=== PATIENT | male | born 1945 | race Caucasian/White ===

== ENCOUNTER 2016-09-09 10:41 | Outpatient (CLI) ==
[2016-09-09 11:04] LABS: BASOPHILS # (AUTO) 0.1 K/uL (0-0.2); EOSINOPHILS # (AUTO) 0.1 K/ul (0.0-0.7); EOSINOPHILS % (AUTO) 1.9 % (0.0-7.0); HEMATOCRIT 39.5 % (42.0-52.0); HEMOGLOBIN 12.9 g/dl (14.0-18.0); IMMATURE GRANULOCYTE % (AUTO) 0.4 % (0.0-5.0); LYMPHOCYTES # (AUTO) 1.7 K/uL (0.60-3.4); LYMPHOCYTES % (AUTO) 25.6 (10.0-50.0); MEAN CORPUSCULAR HEMOGLOBIN 28.2 pg (27.0-31.0); MEAN CORPUSCULAR HGB CONC 32.7 (31.8-35.4); MEAN CORPUSCULAR VOLUME 86.4 fl (80.0-94.0); MONOCYTES # (AUTO) 0.6 K/uL (0.4-2.0); MONOCYTES % (AUTO) 9.5 (0-10); NEUTROPHILS # (AUTO) 4.2 K/ul (2.0-6.9); NEUTROPHILS % (AUTO) 61.6; PLATELET COUNT 219 10^3/uL (140-440); RED BLOOD COUNT 4.57 10^6/ul (4.70-6.10); WHITE BLOOD COUNT 6.77 K/ul (4.2-10.2)
[2016-09-09 11:43] LABS: ALBUMIN 3.4 g/dL (3.4-5.0); ALBUMIN/GLOBULIN RATIO 0.97; ANION GAP 11.6; BILIRUBIN,TOTAL 0.4 mg/dL (0.00-1.20); BUN/CREATININE RATIO 16.47; CALCIUM 8.9 mg/dL (8.2-10.2); CHOL/HDL RATIO 2.4 (4.5-6.4); CREATININE 0.85 mg/dL (0.60-1.10); POTASSIUM 4.6 mmol/L (3.5-5.1); TOTAL PROTEIN 6.9 g/dL (5.8-8.1)
== END 2016-09-09 10:42 | disposition home or self-care (01) ==
LOC: LAB 10:41
PROVIDERS: ATTEND Nurse Practitioner Family
DX: E11.9 Type 2 diabetes mellitus without complications (principal); I10 Essential (primary) hypertension; E78.5 Hyperlipidemia, unspecified; E88.81 Metabolic syndrome and other insulin resistance; J44.9 Chronic obstructive pulmonary disease, unspecified; E66.9 Obesity, unspecified
CPT/HCPCS: 36415; 80053; 80061; 83036; 84439; 84443; 85025

== ENCOUNTER 2016-10-28 11:50 | Outpatient (CLI) ==
[2016-10-28 19:10] VITALS: BMI 45.0
== END 2016-10-28 11:51 | disposition home or self-care (01) ==
LOC: AMBL 11:50
PROVIDERS: ATTEND Emergency Medicine
DX: S80.02XA Contusion of left knee, initial encounter (principal); S80.01XA Contusion of right knee, initial encounter; R29.6 Repeated falls; E66.01 Morbid (severe) obesity due to excess calories; W19.XXXA Unspecified fall, initial encounter

== ENCOUNTER 2016-10-28 12:05 | Inpatient (IN) | payer OTHER ==
--- NOTE | 2016-10-28 13:15 | ED.PDOC ---
General ED Provider: Dr. MIKAEL WEBER JR Chief Complaint: Fall Stated Complaint: BILATERAL KNEE PAIN. HAS HAD MULTIPLE FALLS RECENTLY. LANDED ON KNEES THIS AM.[ End ]since 0900 98.4 87 18 92 123/73 04/29. BILTERAL KNEE PAIN. MULTIPLE FALLS RECENTLY[ End ]TRYING TO MOVE TO/OR FROM SCOOTER TO COUCH.PAIN TO KNEES, LOW BACK AND LEFT HIP AND LEFT ANKLE.[ End ]initally states did not take insulin this morning then states did not take ususal amount , but did eat, note ecchymoses both knees left greater than right Time Seen by Physician: 13:14 Mode of Arrival: Ambulance Information Source: Patient Exam Limitations: No limitations [facility] and Triage Documentation Reviewed and Agree: No Review of Systems - Review Of Systems Constitutional: Reports: No symptoms Eyes: Reports: No symptoms Ears, Nose, Mouth, Throat: Reports: No symptoms Respiratory: Reports: No symptoms Cardiac: Reports: No symptoms GI: Reports: No symptoms : Reports: No symptoms Musculoskeletal: Reports: Back pain, Joint pain (left hip knees) Skin: Reports: Bruising Neurological: Reports: Weakness Endocrine: Reports: No symptoms Hematologic/Lymphatic: Reports: No symptoms All Other Systems: Other Past Medical History - Past Medical History Endocrine: Reports: DM 2 Cardiovascular: Reports: Hypertension, CHF Respiratory: Reports: COPD Hematological: Reports: None Gastrointestinal: Reports: None Genitourinary: Reports: None Neuro/Psych: Reports: None Musculoskeletal: Reports: None Cancer: Reports: None Other Pertinent Past Medical History: SLEEP APNEA, OBESITY, - Surgical History General Surgical History: Reports: Cholecystectomy, Orthopedic ( LEFT ELBOW, RIGHT ANKLE FUSION, RIGHT KNEE SCOPE,COMPRESSION FX L 1,2,3 FX COCCYX.), Other (HEMORRHOID SURGERY) - Family History Family History: Reports: Unknown - Social History Smoking Status: Current every day smoker Hx Substance Use: No Alcohol Screening: Occasionally Physical Exam - Physical Exam Appearance: Ill-appearing, Obese Pain Distress: Moderate Eyes: TIM, EOMI, Conjunctiva clear ENT: Ears normal, Nose normal, Oropharynx normal Neck: Supple Respiratory: Airway patent, Breath sounds clear, Breath sounds equal, Respirations nonlabored Cardiovascular: RRR, Pulses normal, No rub, No murmur GI/: Soft, Nontender, No masses, Bowel sounds normal, No Organomegaly Musculoskeletal: Limited ROM, Edema (both legs), Calf tenderness Skin: Warm, Dry Neurological: Sensation intact, Alert, Oriented Psychiatric: Affect appropriate Interpretation - Radiology Interpretation Radiology Interpretation By: Radiologist Radiology Results: Negative Exam Interpreted: Other (xrays-left lateral tibial plateau lucency only on tunnel view) Radiology Interpretation By: Radiologist Exam Interpreted: CT Scan Physician Notification - Case Discussed Physician Notified: DR SWANSON- WILL SEE OUTPATIENT THISWEEK INCLINIC CALL REPLACED BY [facility] [phone] Critical Care Note - Critical Care Note Total Time (mins): 5 Course - Course Hematology/Chemistry: 10/28/16 14:05 10/28/16 14:05 Orders, Labs, Meds: Lab Review 10/28/16 14:05 WBC 8.96 RBC 3.60 L Hgb 10.2 L Hct 32.3 L MCV 89.7 MCH 28.3 MCHC 31.6 L RDW Coeff of Scott 16.7 H Plt Count 301 Immature Gran % (Auto) 0.8 Neut % (Auto) 66.2 Lymph % (Auto) 20.8 [place] % (Auto) 8.8 Eos % (Auto) 2.6 Baso % (Auto) 0.8 Immature Gran # (Auto) 0.1 Neut # 5.9 Lymph # 1.9 [place] # 0.8 Eos # 0.2 Baso # 0.1 D-Dimer (Manual) 4812.37 Sodium 138 Potassium 4.3 Chloride 98 Carbon Dioxide 32 H Anion Gap 12.3 BUN 19 H Creatinine 1.00 Estimated GFR (MDRD) 73.00 BUN/Creatinine Ratio 19.00 Glucose 124 H Calcium 8.3 Total Bilirubin 0.51 AST 21 ALT 14 Alkaline Phosphatase 152 H B-Natriuretic Peptide 89 Total Protein 6.3 Albumin 3.0 L Globulin 3.3 Albumin/Globulin Ratio 0.91 Orders Category Date Time Status EKG-(ED ONLY) Stat CARDIO 10/28/16 13:21 Completed ACCUCHECK (ED) [ED ACCUCHECK ASSESSMENT] .ONCE EMERGENCY 10/28/16 13:22 Active B-TYPE NATRIURETIC PEPTIDE Stat LAB 10/28/16 14:05 Completed CBC W/ AUTO DIFF Stat LAB 10/28/16 14:05 Completed COMPREHENSIVE METABOLIC PANEL Stat LAB 10/28/16 14:05 Completed D-DIMER Stat LAB 10/28/16 14:05 Completed Tramadol HCl [Ultram] MEDS 10/28/16 13:35 Discontinued 100 mg PO ONCE STA CT KNEE LEFT WITHOUT CONTRAST Stat RADS 10/28/16 14:22 Completed HIP, LEFT 2 VIEWS Stat RADS 10/28/16 13:20 Completed KNEE, LEFT 4 VIEWS Stat RADS 10/28/16 13:14 Completed KNEE, RIGHT 4 VIEWS Stat RADS 10/28/16 13:14 Completed PELVIS 1 OR 2 VIEWS Stat RADS 10/28/16 13:20 Completed ULTRASOUND VENOUS SCAN ABDIRIZAK LEGS [U/S VENOUS SCAN ABDIRIZAK RADS 10/28/16 15:17 Completed LEGS] Stat Medications Generic Name Dose Route Start Last Admin Trade Name Freq PRN Reason Stop Dose Admin Acetaminophen 650 mg 10/28/16 17:44 Tylenol PO Q4H PRN Mild Pain Albuterol Sulfate puff 10/28/16 21:00 Proair Hfa IH BID DEREK Albuterol/Ipratropium vial 10/28/16 21:00 Duoneb NEB TID [facility] Atorvastatin Calcium 10 mg 10/29/16 09:00 Lipitor PO DAILY [facility] Chlordiazepoxide HCl 25 mg 10/28/16 17:51 Librium PO Q6HR PRN Agitation Sodium Chloride 1,000 mls @ 75 mls/hr 10/28/16 18:00 Sodium Chloride IV .[id number] [facility] Insulin Glargine 25 unit 10/28/16 21:00 Lantus SUBCUT BID [facility] Insulin Human Regular 0 unit 10/28/16 17:56 Humulin R SUBCUT PRN PRN Hyperglycemica Protocol Lisinopril 10 mg 10/29/16 09:00 Zestril PO DAILY [facility] Morphine Sulfate 4 mg 10/28/16 17:50 Morphine 4 Mg/Ml Syringe IVP Q6H PRN pain Non-Formulary Medication 10 unit 10/28/16 18:00 Insulin Aspart [Novolog Insulin] SQ sliding scale DEREK Fluticasone/Salmeterol puff 10/28/16 21:00 Advair 250-50 Diskus IH BID DEREK Discontinued Medications Generic Name Dose Route Start Last Admin Trade Name Freq PRN Reason Stop Dose Admin Tramadol HCl 100 mg 10/28/16 13:35 10/28/16 14:00 Ultram PO 10/28/16 13:36 100 mg ONCE STA Administration Vital Signs: Temp Pulse Resp BP Pulse Ox 10/28/16 12:08 98.4 F 87 18 123/73 92 L Departure - Departure Time of Disposition: 18:18 Disposition: ADMITTED INPATIENT Discharge Problem: Fracture of left knee region Condition: Fair Pt referred to PMD for follow-up: Yes Allergies/Adverse Reactions: Allergies No Known Allergies Allergy (Unverified 10/28/16 12:16) Disposition Discussed With: Patient (DR SWANSON- WILL SEE OUTPATIENT THISWEEK INCLINIC CALL REPLACED BY [facility] [phone])
[2016-10-28] MEDS ORDERED: ULTRAM PO STA (13:35)
--- NOTE | 2016-10-28 14:03 | DI ---
EXAM: Pelvis AP view HISTORY: Fall, pelvic pain FINDINGS: Image quality is poor possibly related to generalized demineralization and body habitus. No well-defined fracture is seen. There is no joint dislocation. Mild hip osteoarthritis bilateral ly. Sacroiliac joints are intact. Degenerative changes of the lower lumbar spine and lumbosacral j unction including a bony bar that extends from the lowermost vertebral body toward the left adjoinin g with the upper medial aspect of the iliac crest. IMPRESSION: No acute fracture or dislocation. Mild hip osteoarthritis. Degenerative changes lumbosacral junctio n.
--- NOTE | 2016-10-28 14:07 | DI ---
EXAM: RIGHT KNEE. HISTORY: Fall, right knee pain. FINDINGS: Right knee four view. Compared to 06/14/2014. Bone density appears mildly decreased. Th ere is moderate to severe anterior compartment osteoarthritis with associated bony spurring of the t his compartment and medial/lateral. Milder loss of articular cartilage width in the medial lateral c ompartments. Probable small joint effusion. No acute fracture is identified. IMPRESSION: Osteoarthritis most apparent in the anterior compartment. Small joint effusion. No fracture is see n.
--- NOTE | 2016-10-28 14:07 | DI ---
Exam: Two x-rays of the left hip. Reason for exam: Falls Comparison: CT examination performed 07/19/2015. FINDINGS: No acute fracture or dislocation. The femoral head articulates with the acetabulum. Ther e is mild degenerative change seen within the joint space. The cortex appears intact. Impression: No acute fracture or dislocation in the left hip.
[2016-10-28 14:11] LABS: BASOPHILS # (AUTO) 0.1 K/uL (0-0.2); BASOPHILS % (AUTO) 0.8 % (0.0-3.0); EOSINOPHILS # (AUTO) 0.2 K/ul (0.0-0.7); EOSINOPHILS % (AUTO) 2.6 % (0.0-7.0); HEMATOCRIT 32.3 % (42.0-52.0); HEMOGLOBIN 10.2 g/dl (14.0-18.0); IMMATURE GRANULOCYTE % (AUTO) 0.8 % (0.0-5.0); LYMPHOCYTES # (AUTO) 1.9 K/uL (0.60-3.4); LYMPHOCYTES % (AUTO) 20.8 (10.0-50.0); MEAN CORPUSCULAR HEMOGLOBIN 28.3 pg (27.0-31.0); MEAN CORPUSCULAR HGB CONC 31.6 (31.8-35.4); MEAN CORPUSCULAR VOLUME 89.7 fl (80.0-94.0); MONOCYTES # (AUTO) 0.8 K/uL (0.4-2.0); MONOCYTES % (AUTO) 8.8 (0-10); NEUTROPHILS # (AUTO) 5.9 K/ul (2.0-6.9); NEUTROPHILS % (AUTO) 66.2; PLATELET COUNT 301 10^3/uL (140-440); WHITE BLOOD COUNT 8.96 K/ul (4.2-10.2)
--- NOTE | 2016-10-28 14:18 | DI ---
EXAM: Left knee four views HISTORY: Falls COMPARISON: 06/14/2014 TECHNIQUE: Four views left knee were performed FINDINGS: There are moderate to advanced tricompartmental osteophytes. Lucency lateral tibial plat eau region, only seen on the tunnel view and poorly evaluated. This could be artifactual secondary to degenerative change versus a nondisplaced fracture. Mild to moderate narrowing medial and martinez lofemoral compartment. Suggestion of chronic loose body formation near the tibial spines. No disloca tion. No joint effusion. Atherosclerotic vascular calcification IMPRESSION: 1. Lucency lateral tibial plateau region, only seen on the tunnel view and poorly evaluated. This c ould be artifactual secondary to degenerative change versus a nondisplaced fracture. Consider CT fo r further evaluation. 2. Moderate to advanced osteoarthritis. Suggestion of loose body formation. Report faxed at time of dictation.
[2016-10-28 14:28] LABS: ALBUMIN/GLOBULIN RATIO 0.91; ANION GAP 12.3; BILIRUBIN,TOTAL 0.51 mg/dL (0.00-1.20); CALCIUM 8.3 mg/dL (8.2-10.2); POTASSIUM 4.3 mmol/L (3.5-5.1); TOTAL PROTEIN 6.3 g/dL (5.8-8.1)
--- NOTE | 2016-10-28 15:25 | CT ---
Examination: CT imaging of the left knee without intravenous contrast administration. Reason for exam: Lucency in the lateral tibial plateau. Comparison: Knee x-rays performed on the same day. FINDINGS: Moderate to marked degenerative disease with tricompartmental arthrosis and medial joint space narrowing. The osseous structures are diffusely demineralized. There is an age indeterminate cortical fragmentation seen in the region of the tibial spines/intercondylar eminence likely a Meye rs and Luz Maria type IIIa (best seen on sagittal image number 47).. No other fracture or dislocation is seen. Impression: 1. There is likely an age indeterminate type IIIa fracture of the intercondylar eminence. Further im aging with MRI may be performed to look for ligamentous injury. 2. No other fractures or dislocations are seen. The bones are diffusely demineralized.
--- NOTE | 2016-10-28 16:08 | US ---
EXAM: Bilateral lower extremity venous Doppler History: Bilateral lower extremity pain, positive D-dimer. Technique: Multiple sonographic images through the bilateral lower extremities were obtained. [place] r duplex Doppler was used to interrogate vascular flow. Findings: The bilateral common femoral, greater saphenous, profunda, superficial femoral, popliteal , peroneal, posterior tibial and anterior tibial veins demonstrate spontaneous flow with normal comp ression and normal augmentation. Right lower extremity subcutaneous edema Impression: No sonographic evidence for deep venous thrombosis. Right lower extremity subcutaneous edema.
[2016-10-28] MEDS ORDERED: TYLENOL PO PRN (17:44)
[2016-10-28] MEDS ORDERED: LIBRIUM PO PRN (17:51)
[2016-10-28] MEDS ORDERED: INSULIN ASPART 10 UNIT SQ SCH (18:00)
[2016-10-28 19:10] VITALS: BMI 45.0
[2016-10-28] MEDS: SODIUM CHLORIDE 1,000 ML IV SCH (19:35)
[2016-10-28] MEDS: MORPHINE 4 MG/ML SYRINGE IVP PRN (19:35)
[2016-10-28] MEDS: LANTUS SUBCUT SCH (22:13)
[2016-10-29] MEDS: MORPHINE 4 MG/ML SYRINGE IVP PRN ×3 (02:08→17:19)
[2016-10-29 04:42] LABS: BASOPHILS # (AUTO) 0.1 K/uL (0-0.2); BASOPHILS % (AUTO) 1.3 % (0.0-3.0); EOSINOPHILS # (AUTO) 0.2 K/ul (0.0-0.7); EOSINOPHILS % (AUTO) 3.5 % (0.0-7.0); HEMOGLOBIN 9.7 g/dl (14.0-18.0); LYMPHOCYTES # (AUTO) 1.5 K/uL (0.60-3.4); LYMPHOCYTES % (AUTO) 21.7 (10.0-50.0); MEAN CORPUSCULAR HEMOGLOBIN 28.3 pg (27.0-31.0); MEAN CORPUSCULAR HGB CONC 31.3 (31.8-35.4); MEAN CORPUSCULAR VOLUME 90.4 fl (80.0-94.0); MONOCYTES # (AUTO) 0.8 K/uL (0.4-2.0); MONOCYTES % (AUTO) 11.2 (0-10); NEUTROPHILS # (AUTO) 4.2 K/ul (2.0-6.9); NEUTROPHILS % (AUTO) 61.3; PLATELET COUNT 303 10^3/uL (140-440); RED BLOOD COUNT 3.43 10^6/ul (4.70-6.10); WHITE BLOOD COUNT 6.86 K/ul (4.2-10.2)
[2016-10-29 05:15] LABS: ALBUMIN 2.8 g/dL (3.4-5.0); ALBUMIN/GLOBULIN RATIO 0.88; ANION GAP 8.4; BILIRUBIN,TOTAL 0.6 mg/dL (0.00-1.20); BUN/CREATININE RATIO 18.18; CALCIUM 8.4 mg/dL (8.2-10.2); CREATININE 0.88 mg/dL (0.60-1.10); POTASSIUM 4.4 mmol/L (3.5-5.1)
[2016-10-29] MEDS: SODIUM CHLORIDE 1,000 ML IV SCH (07:44)
[2016-10-29] MEDS: ADVAIR 250-50 DISKUS IH SCH ×3 (08:47→21:24)
[2016-10-29] MEDS: ZESTRIL PO SCH (08:48)
[2016-10-29] MEDS: PROAIR HFA IH SCH ×3 (08:48→21:24)
[2016-10-29] MEDS: LIPITOR PO SCH (08:48)
[2016-10-29] MEDS: LANTUS SUBCUT SCH ×2 (08:49→21:25)
[2016-10-29] MEDS: DUONEB NEB SCH ×4 (09:11→21:10)
--- NOTE | 2016-10-29 10:53 | PCM.PROG ---
Attending Provider: ATTENDING PROVIDER: Dr. DARA PALOMO DATE OF SERVICE: 10/29/16 SUBJECTIVE: This 71 year old WHITE/ M was hospitalized 10/28/16. The patient is admitted with left knee fracture. I talked to Dr. Herndon and he wants to treat as outpatient with knee immobilizer. As the patient cannot ambulate and lives by himself, he was admitted to the hospital for initiation of PT. He is still having pain. REVIEW OF SYSTEMS: CONSTITUTIONAL: No fever, no chills. ENDOCRINE: No weight loss or weight gain. HEENT: No sinus drainage, no sore throat. CVS: No angina symptoms. No CHF symptoms. No palpitations. No atypical chest pain for CAD. No shortness of breath. RESPIRATORY: No cough, no hemoptysis. GI: No melena. No abdominal pain. No nausea, no vomiting. : No hematuria. No polyuria. SKIN: Ecchymotic areas of the left knee. MUSCULOSKELETAL: Pain in the left knee. Generalized osteoarthritic pain. MELT DOWN FURNACE OPERATOR: No blackout, no dizziness. No headache. No double vision. PSYCHIATRIC: Not anxious; no depression. No suicidal thoughts. No homicidal thoughts. PHYSICAL EXAMINATION: GENERAL: Lying in bed in no distress. VITAL SIGNS: Temperature 96.6 F, Pulse 71, Respiratory Rate 20, BP 135/78, Pulse Ox 96% HEENT: Normocephalic, atraumatic. Mucosa is dry, pallor positive. NECK: No JVP, no carotid bruit. No lymphadenopathy. CARDIAC: S1, S2, no S3. No murmur, gallop or regurgitation. LUNGS: Clear to auscultation. ABDOMEN: Soft, non-tender. Bowel sounds active. No rigidity, guarding or CVA tenderness. EXTREMITIES: 1+ edema. No clubbing or cyanosis. Ecchymotic areas present on left knee. NEUROLOGIC: Awake, alert and oriented x3. LYMPHATIC: No palpable lymph nodes SKIN: Not dry. Intact. MUSCULOSKELETAL: No joint swelling. LAB REVIEW: 10/29/16 03:45 10/29/16 03:45 10/29/16 03:45: WBC 6.86, RBC 3.43 L, Hgb 9.7 L, Hct 31.0 L, MCV 90.4, MCH 28.3 , MCHC 31.3 L, RDW Coeff of Scott 16.7 H, Plt Count 303, Immature Gran % (Auto) 1.0, Neut % (Auto) 61.3, Lymph % (Auto) 21.7, [place] % (Auto) 11.2 H, Eos % (Auto ) 3.5, Baso % (Auto) 1.3, Immature Gran # (Auto) 0.1, Neut # 4.2, Lymph # 1.5, [place] # 0.8, Eos # 0.2, Baso # 0.1, Sodium 137, Potassium 4.4, Chloride 100, Carbon Dioxide 33 H, Anion Gap 8.4, BUN 16, Creatinine 0.88, Estimated GFR (MDRD ) 85.00, BUN/Creatinine Ratio 18.18, Glucose 116 H, Calcium 8.4, Total Bilirubin 0.60, AST 36, ALT 16, Alkaline Phosphatase 170 H, Total Protein 6.0, Albumin 2.8 L, Globulin 3.2, Albumin/Globulin Ratio 0.88 ASSESSMENT: 1. Left knee Type IIIA fracture intercondylar eminence for PT/rehabilitation 2. History of diabetes mellitus 3. Dyslipidemia 4. Anxiety 5. Osteoarthritis 6. DJD spine 7. Hypertension 8. Osteoarthritis PLAN: 1. PT to evaluate 2. Immbolizer left knee 3. Accu-cheks with coverage 4. Discusssed with the patient possible placement in [facility] for PT; will discuss further. Plan and coordination of the patient's care discussed in the presence of Counter Manager and nurse. CONDITION: Stable SCRIBED BY: MARCEL LARSON, Certified Art Therapist scribed while in presence of service performed by Dr. DARA PALOMO on 10/29/16 ([id number])
[2016-10-29] MEDS: HUMULIN R SUBCUT PRN (11:23)
[2016-10-29] MEDS: NYSTOP POWDER TP SCH ×2 (11:32→21:24)
[2016-10-29] MEDS: NORCO 7.5-325 PO PRN ×2 (15:07→21:24)
[2016-10-30] MEDS: MORPHINE 4 MG/ML SYRINGE IVP PRN ×2 (02:06→19:30)
[2016-10-30] MEDS: SODIUM CHLORIDE 1,000 ML IV SCH ×2 (04:25→18:17)
[2016-10-30 04:50] LABS: BASOPHILS # (AUTO) 0.1 K/uL (0-0.2); BASOPHILS % (AUTO) 0.8 % (0.0-3.0); EOSINOPHILS # (AUTO) 0.2 K/ul (0.0-0.7); HEMATOCRIT 30.2 % (42.0-52.0); HEMOGLOBIN 9.5 g/dl (14.0-18.0); IMMATURE GRANULOCYTE % (AUTO) 0.7 % (0.0-5.0); LYMPHOCYTES # (AUTO) 1.4 K/uL (0.60-3.4); MEAN CORPUSCULAR HEMOGLOBIN 28.5 pg (27.0-31.0); MEAN CORPUSCULAR HGB CONC 31.5 (31.8-35.4); MEAN CORPUSCULAR VOLUME 90.7 fl (80.0-94.0); MONOCYTES # (AUTO) 0.7 K/uL (0.4-2.0); MONOCYTES % (AUTO) 11.2 (0-10); NEUTROPHILS # (AUTO) 3.7 K/ul (2.0-6.9); NEUTROPHILS % (AUTO) 61.3; PLATELET COUNT 300 10^3/uL (140-440); RED BLOOD COUNT 3.33 10^6/ul (4.70-6.10); WHITE BLOOD COUNT 6.08 K/ul (4.2-10.2)
[2016-10-30 05:08] LABS: ALBUMIN 2.7 g/dL (3.4-5.0); ALBUMIN/GLOBULIN RATIO 0.77; ANION GAP 9.5; BILIRUBIN,TOTAL 0.52 mg/dL (0.00-1.20); BUN/CREATININE RATIO 15.55; CALCIUM 8.5 mg/dL (8.2-10.2); CREATININE 0.9 mg/dL (0.60-1.10); POTASSIUM 4.5 mmol/L (3.5-5.1); TOTAL PROTEIN 6.2 g/dL (5.8-8.1)
[2016-10-30] MEDS: DUONEB NEB SCH ×3 (05:24→23:34)
[2016-10-30] MEDS: ZESTRIL PO SCH (08:36)
[2016-10-30] MEDS: LIPITOR PO SCH (08:36)
[2016-10-30] MEDS: LANTUS SUBCUT SCH ×2 (08:37→20:48)
[2016-10-30] MEDS: PROAIR HFA IH SCH ×2 (08:37→20:47)
[2016-10-30] MEDS: ADVAIR 250-50 DISKUS IH SCH ×2 (08:37→20:47)
[2016-10-30] MEDS: NYSTOP POWDER TP SCH ×2 (08:38→20:47)
[2016-10-30] MEDS: NORCO 7.5-325 PO PRN ×3 (09:15→23:26)
[2016-10-30] MEDS: HUMULIN R SUBCUT PRN (11:33)
[2016-10-31] MEDS: DUONEB NEB SCH (05:18)
[2016-10-31 06:07] LABS: BASOPHILS # (AUTO) 0.1 K/uL (0-0.2); BASOPHILS % (AUTO) 0.9 % (0.0-3.0); EOSINOPHILS # (AUTO) 0.2 K/ul (0.0-0.7); EOSINOPHILS % (AUTO) 3.8 % (0.0-7.0); HEMATOCRIT 31.3 % (42.0-52.0); HEMOGLOBIN 9.8 g/dl (14.0-18.0); IMMATURE GRANULOCYTE % (AUTO) 0.6 % (0.0-5.0); LYMPHOCYTES # (AUTO) 1.6 K/uL (0.60-3.4); LYMPHOCYTES % (AUTO) 24.8 (10.0-50.0); MEAN CORPUSCULAR HEMOGLOBIN 28.3 pg (27.0-31.0); MEAN CORPUSCULAR HGB CONC 31.3 (31.8-35.4); MEAN CORPUSCULAR VOLUME 90.5 fl (80.0-94.0); MONOCYTES # (AUTO) 0.8 K/uL (0.4-2.0); MONOCYTES % (AUTO) 11.9 (0-10); NEUTROPHILS # (AUTO) 3.7 K/ul (2.0-6.9); PLATELET COUNT 303 10^3/uL (140-440); RED BLOOD COUNT 3.46 10^6/ul (4.70-6.10)
[2016-10-31 06:18] VITALS: BP 130/65; TEMP 97.9
[2016-10-31 06:29] LABS: ALBUMIN 2.8 g/dL (3.4-5.0); ALBUMIN/GLOBULIN RATIO 0.85; ANION GAP 9.4; BILIRUBIN,TOTAL 0.14 mg/dL (0.00-1.20); BUN/CREATININE RATIO 14.11; CALCIUM 8.7 mg/dL (8.2-10.2); CREATININE 0.85 mg/dL (0.60-1.10); POTASSIUM 4.4 mmol/L (3.5-5.1); TOTAL PROTEIN 6.1 g/dL (5.8-8.1)
[2016-10-31] MEDS: LANTUS SUBCUT SCH (08:35)
[2016-10-31] MEDS: ZESTRIL PO SCH (08:35)
[2016-10-31] MEDS: LIPITOR PO SCH (08:35)
[2016-10-31] MEDS: PROAIR HFA IH SCH (08:35)
[2016-10-31] MEDS: ADVAIR 250-50 DISKUS IH SCH (08:35)
[2016-10-31] MEDS: NYSTOP POWDER TP SCH (08:36)
--- NOTE | 2016-10-31 10:41 | PCM.PROG ---
Attending Provider: ATTENDING PROVIDER: Dr. DARA PALOMO DATE OF SERVICE: 10/31/16 SUBJECTIVE: This 71 year old WHITE/ M was hospitalized 10/28/16. The patient still has knee pain. He has an appointment with Dr. Herndon at 1:30 pm. The patient will be [place] [facility] [place] pt and ot REVIEW OF SYSTEMS: CONSTITUTIONAL: No fever, no chills. ENDOCRINE: No weight loss or weight gain. HEENT: No sinus drainage, no sore throat. CVS: No angina symptoms. No CHF symptoms. No palpitations. No atypical chest pain for CAD. No shortness of breath. RESPIRATORY: No cough, no hemoptysis. GI: No melena. No abdominal pain. No nausea, no vomiting. : No hematuria. No polyuria. SKIN: No rash. No wounds. MUSCULOSKELETAL: No pain. STAPLE LASTER: No blackout, no dizziness. No headache. No double vision. PSYCHIATRIC: Not anxious; no depression. No suicidal thoughts. No homicidal thoughts. PHYSICAL EXAMINATION: GENERAL: Obese male lying in bed in no distress. VITAL SIGNS: Temperature 97.9 F, Pulse 78, Respiratory Rate 16, BP 130/65, Pulse Ox 93% HEENT: Normocephalic, atraumatic. Mucosa is dry, pallor positive. NECK: No JVP, no carotid bruit. No lymphadenopathy. CARDIAC: S1, S2, no S3. No murmur, gallop or regurgitation. LUNGS: Clear to auscultation. ABDOMEN: Soft, non-tender. Bowel sounds active. No rigidity, guarding or CVA tenderness. EXTREMITIES: No clubbing, cyanosis or edema. Range of motion of left knee is decreased; swelling is less. NEUROLOGIC: Awake, alert and oriented x3. LYMPHATIC: No palpable lymph nodes SKIN: Not dry. Intact. MUSCULOSKELETAL: No joint swelling. LAB REVIEW: 10/31/16 05:45 10/31/16 05:45 10/31/16 05:45: WBC 6.40, RBC 3.46 L, Hgb 9.8 L, Hct 31.3 L, MCV 90.5, MCH 28.3 , MCHC 31.3 L, RDW Coeff of Scott 16.9 H, Plt Count 303, Immature Gran % (Auto) 0.6, Neut % (Auto) 58.0, Lymph % (Auto) 24.8, [place] % (Auto) 11.9 H, Eos % (Auto ) 3.8, Baso % (Auto) 0.9, Immature Gran # (Auto) 0.0, Neut # 3.7, Lymph # 1.6, [place] # 0.8, Eos # 0.2, Baso # 0.1, Sodium 136, Potassium 4.4, Chloride 98, Carbon Dioxide 33 H, Anion Gap 9.4, BUN 12, Creatinine 0.85, Estimated GFR (MDRD ) 89.00, BUN/Creatinine Ratio 14.11, Glucose 62 L, Calcium 8.7, Total Bilirubin 0.14, AST 34, ALT 25, Alkaline Phosphatase 236 H D, Total Protein 6.1, Albumin 2.8 L, Globulin 3.3, Albumin/Globulin Ratio 0.85 ASSESSMENT: 1. Left knee Type IIIA fracture intercondylar eminence for PT/rehabilitation 2. History of diabetes mellitus 3. Dyslipidemia 4. Anxiety 5. Osteoarthritis 6. DJD spine 7. Hypertension 8. Osteoarthritis PLAN: 1. Discharge to intermediate - [facility] today for PT/OT Plan and coordination of the patient's care discussed in the presence of Manager Psychology and nurse. CONDITION: Stable SCRIBED BY: MARCEL LARSON Beamster scribed while in presence of service performed by Dr. DARA PALOMO on 10/31/16 ([id number])
--- NOTE | 2016-10-31 13:56 | PN ---
DATE OF SERVICE: 10/30/16 SUBJECTIVE: The patient was admitted with the left knee fracture, it was hairline fracture so Dr. Jeff suggested nonsurgical evaluation of the patient. The patient was admitted here and still complains about the pain. In patient has been evaluated for the jail placement. REVIEW OF SYSTEMS: CONSTITUTIONAL: No fever, no chills. HEENT: Normal. ENDOCRINE: No weight gain, no weight loss. CVS: No angina symptoms. No CHF symptoms. No palpitations. No atypical chest pain for CAD. No shortness of breath. No PND, no orthopnea. RESPIRATORY: No cough, no hemoptysis. GI: No nausea, no vomiting. No abdominal pain. : No hematuria. No polyuria. MUSCULOSKELETAL:. No joint swelling. PSYCHIATRIC: Not anxious. No depression. No suicidal thoughts. No homicidal thoughts. SKIN: Intact. No rash. PHYSICAL EXAMINATION: V/S: Blood pressure 124/68, respiratory rate 16, heart rate 67, temperature 96.8 and saturation 92%. HEENT: Normocephalic, atraumatic. Mucosa dry. Pallor positive. No icterus. NECK: Supple. No JVD, no carotid bruit. No lymphadenopathy. LUNGS: Decreased and Clear to auscultation. No rales or rhonchi. HEART: S1, S2 normal. No S3. No murmur, gallop or regurgitation. ABDOMEN: Soft, nontender. Bowel sounds active. No rigidity. No rebound or guarding. No CVA tenderness. EXTREMITIES: No clubbing, cyanosis or pedal edema. Range of motion is decreased and tender to touch and swollen. MUSCULOSKELETAL: No joint swelling. NEUROLOGIC: Awake, alert, oriented times three. No focal deficit. LYMPHATIC: No lymph nodes palpable. SKIN: Intact. LABS: WBC 6.30, hgb 9.5, hct 30.2, plt count 300, sodium 136, potassium 4.5, chloride 99, bicarb 32, BUN 14 and creatinine 0.90. ASSESSMENT: 1. Intercondylar eminence with fracture, left knee 2. Hypertension 3. Dyslipidemia 4. Diabetes Mellitus 5. Anemia 6. Osteoarthritis 7. DJD spine PLAN: 1. Continue the Evaluation with the physical therapy 2. Continue followup for the evaluation of the jail placement 3. Morphine for the pain 4. Stop IV fluids. TIME SPENT: More than 30 minutes MTDD
--- NOTE | 2016-11-01 12:50 | DS ---
DATE OF SERVICE: 10/31/16 FINAL DIAGNOSIS: 1. LEFT KNEE FRACTURE FOR PHYSICAL THERAPY AND REHABILITATION 2. HYPERTENSION 3. DYSLIPIDEMIA 4. OSTEOARTHRITIS 5. DJD SPINE 6. OBESITY 7. SLEEP APNEA 8. COPD 9. HISTORY OF RIGHT ANKLE FUSION 10. HISTORY OF CHOLECYSTECTOMY DISCHARGE INSTRUCTIONS: Will discharge the patient to the retirement. PT/OT evaluate and treat. Followup appointment with Dr. Herndon's PAIsiah on 10/31/16. CBC and CMP in one week. MEDICATIONS AT DISCHARGE: [place] 7.5 every 6 hours p.r.n. ProAir Duoneb Lipitor Librium Lantus Humulin Zestril Advair Nystop NEW PRESCRIPTIONS: Insulin Humulin R Hydrocodone DIET INSTRUCTIONS: Cardiac and healthy ACTIVITY: As much as tolerated; he may participate in the retirement activities. SMOKING: N/A DISEASE SPECIFIC EDUCATION: Medications PT/OT Shelter placement Diet Appointments HOSPITAL COURSE: Mr. Williamson, who is a 71-year-old male came to the Emergency Room after sustaining a fall at home. He was seen by Dr. Peters. In the process of evaluation, left knee fracture was found but when he talked to Dr. Herndon, he said it has to be treated as a torn ligament as there was a small fracture. At that time, the patient was not able to tolerate the weight and could not live alone so the patient was admitted to the hospital. PT/OT evaluated the patient and the patient was needing long-term care so retirement evaluation was done. Venous Doppler was negative. Eventually the patient was qualified by the retirement and the patient was transferred to the retirement without any event during the hospital stay. The patient has followup with Dr. Herndon as outpatient. The patient understands physical and occupational therapy and the need of it. TIME SPENT: More than 45 minutes today. ESME
--- NOTE | 2016-12-06 11:55 | HP ---
DATE OF SERVICE: 10/28/16 CHIEF COMPLAINT: Knee pain and recent multiple falls. HISTORY OF PRESENT ILLNESS: This is a 71-year-old male who ever since the falls the patient has been hurting more in the knees, not able to ambulate. He came to the emergency room and was seen by Dr. Peters which showed in the left knee a nondisplaced fracture, considered CT for evaluation. Dr. Peters did CT evaluation and showed age indeterminate IIIA fracture of the intercondylar eminence. At that time, he called the orthopedic surgeon in [place] and they said given the type of this surgery it would be nonsurgical and suggested admission to [facility] rather than transferring the patient to [facility] - he talked to Dr. Herndon. At that time, the patient was admitted to the hospital for left knee fracture, intractable pain, inability to ambulate. REVIEW OF SYSTEMS: CONSTITUTIONAL: Weakness. No fever, no chills. HEENT: Normal. ENDOCRINE: No weight gain; no weight loss. CVS: No chest pain. No PND, no orthopnea. No shortness of breath. No PND, no orthopnea. RESPIRATORY: No cough, no congestion. No hemoptysis. GI: No nausea, no vomiting. No abdominal pain. No melena. : No hematuria. No polyuria. MUSCULOSKELETAL: Knee pain, unable to ambulate. PSYCHIATRIC: Not anxious. No depression. No suicidal thoughts. No homicidal thoughts. SKIN: Intact, no open lesions. PAST MEDICAL HISTORY: 1. CAD 2. CHF 3. COPD 4. Sleep apnea since 1994 5. Osteoarthritis 6. Diabetes mellitus 7. Depression 8. Anxiety PAST SURGICAL HISTORY: 1. Cataract surgery 2008 2. Right ankle fusion 1984 3. Left elbow surgery 1984 4. Open cholecystectomy 2009 PERSONAL HISTORY: Does not drink or smoke. The patient is mostly wheelchair bound secondary to the severe osteoarthritis. FAMILY HISTORY: High blood pressure. MEDICATIONS: (HOME) 1. Lisinopril 2. Novolog 3. Duoneb 4. Lantus 5. Advair 6. ProAir 7. Librium 8. Lipitor ALLERGIES: NKDA PHYSICAL EXAMINATION: V/S: BP 170/78, respiratory rate 22, heart rate 81. Saturation 92% on room air. HEENT: Atraumatic, normocephalic. No scleral icterus. Pallor positive. Mucosa dry. NECK: Supple. No JVD, no bruit. No lymphadenopathy. No thyromegaly. HEART: S1, S2 normal. No murmur. No cyanosis or clubbing. No ascites. LUNGS: Decreased breath sounds. Clear to auscultation. No rales or rhonchi. ABDOMEN: Soft, nontender. Bowel sounds are active. No CVA tenderness. No rigidity or guarding. EXTREMITIES: Left knee tenderness is present on palpation and some swelling is present. No cyanosis, clubbing or pedal edema. MUSCULOSKELETAL: Normal joints, no swelling. NEUROLOGIC: The patient is awake, alert and oriented. SKIN: Intact and dry except for some bruising. LYMPHATIC: No lymph nodes palpable. LABS: White count 8.96, hemoglobin 10.2, hematocrit 32.3, platelet count 301. Sodium 138, potassium 4.3, chloride 98, bicarb 32, BUN 19, creatinine 1.0. ASSESSMENT: 1. STATUS POST FALL WITH LEFT KNEE CONDYLAR FRACTURE, INABILITY TO AMBULATE 2. COPD 3. DIABETES MELLITUS 4. MORBID OBESITY 5. HYPERTENSION 6. DYSLIPIDEMIA PLAN: 1. Admit the patient to the regular floor 2. CBC, CMP today and daily 3. Cardiac enzymes and troponins 4. Accu-Cheks with the coverage 5. PT/OT evaluate and treat 6. Librium p.r.n. 7. Hydrocodone q.6hr 8. Daily I & O's 9. IV fluids at 75 mL/hr 10. Will follow the patient in daily rounds TIME SPENT: More than 70 minutes. MTDJerad
== END 2016-10-31 11:26 | DRG 563 ==
LOC: ED 12:05 → MEDSURG B 17:44
PROVIDERS: ADMIT Emergency Medicine; ATTEND Emergency Medicine
DX: S82.015A Nondisplaced osteochondral fracture of left patella, initial encounter for closed fracture (principal); M25.561 Pain in right knee; M54.5 Low back pain; M25.552 Pain in left hip; M25.551 Pain in right hip; M25.572 Pain in left ankle and joints of left foot; R60.0 Localized edema; E11.9 Type 2 diabetes mellitus without complications; I10 Essential (primary) hypertension; W05.2XXA Fall from non-moving motorized mobility scooter, initial encounter; F17.200 Nicotine dependence, unspecified, uncomplicated; E78.5 Hyperlipidemia, unspecified; M16.0 Bilateral primary osteoarthritis of hip; M47.9 Spondylosis, unspecified; E66.9 Obesity, unspecified; G47.30 Sleep apnea, unspecified; J44.9 Chronic obstructive pulmonary disease, unspecified; D64.9 Anemia, unspecified; Z91.81 History of falling; Z79.4 Long term (current) use of insulin; Z79.899 Other long term (current) drug therapy
CPT/HCPCS: 36415; 80053; 82962; 83880; 85025; 85379; 93005; 93010; 94640; 97802; 99223; 99233; 99239; 99284

== ENCOUNTER 2017-01-11 17:59 | Outpatient (CLI) ==
[2017-01-11 18:17] VITALS: BMI 45.0
== END 2017-01-11 18:00 | disposition critical access hospital (66) ==
LOC: AMBL 17:59
PROVIDERS: ATTEND Internal Medicine Geriatric Medicine
DX: F10.129 Alcohol abuse with intoxication, unspecified (principal); S72.001A Fracture of unspecified part of neck of right femur, initial encounter for closed fracture; W06.XXXA Fall from bed, initial encounter

== ENCOUNTER 2017-01-11 18:16 | Emergency (ER) ==
[2017-01-11 18:17] VITALS: BMI 45.0
[2017-01-11 18:24] VITALS: BP 123/56; TEMP 97.7
--- NOTE | 2017-01-11 18:46 | ED.PDOC ---
General <CHRISTIEGARTH GALLEGOS - Last Filed: 01/11/17 19:57> Stated Complaint: Patient is brought by ambulance after the patient's neighbor heard patient jose maria and called 911. He was found by ems in the floor very drunk. unable to give history of how he fell. state he has left hip pain and has had it for a while. States he falls out of the schooter often. Time Seen by Physician: 18:45 Mode of Arrival: Ambulance Information Source: Patient Exam Limitations: Intoxication Nursing and Triage Documentation Reviewed and Agree: Yes <MILO SAN Last Filed: 01/15/17 03:31> ED Provider: Dr. MILO SAN Chief Complaint: Fall [facility] Trauma/Injury Complaint Exam - Trauma Complaint/Exam Location of Pain or Injury: Reports: LLE Mechanism of Injury: Reports: Fall (out of a schooter ) Onset/Duration: today Symptoms Are: Still present Timing of Treatment: Immediate Initial Severity: Severe Current Severity: Severe Character: Reports: Dull, Aching Aggravating: Reports: Movement, Palpation Associated Signs and Symptoms: Reports: Swelling Related History: Reports: Alcohol abuse EMS Interventions: Absent: C-spine immobilization, Backboard applied, Intubated Nexus Low Risk Criteria: No post-midline CS tender Trauma Findings: Present: Limited ROM (left hip ), Agitated Skin Findings: Present: Tenderness (Left hip ) Differential Diagnoses: Abrasion, Contusions, Fracture, Sprain, Strain <MILO SAN - Last Filed: 01/15/17 03:31> Review of Systems - Review Of Systems Constitutional: Reports: No symptoms Eyes: Reports: No symptoms Ears, Nose, Mouth, Throat: Reports: No symptoms Respiratory: Reports: No symptoms Cardiac: Reports: No symptoms GI: Reports: No symptoms : Reports: No symptoms Musculoskeletal: Reports: Joint pain Skin: Reports: Bruising Endocrine: Reports: No symptoms Hematologic/Lymphatic: Reports: No symptoms All Other Systems: Reviewed and Negative <MILO SAN Last Filed: 01/15/17 03:31> Past Medical History - Past Medical History Endocrine: Reports: DM 2 Cardiovascular: Reports: Hypertension, CHF Respiratory: Reports: COPD Hematological: Reports: None Gastrointestinal: Reports: None Genitourinary: Reports: None Neuro/Psych: Reports: None Musculoskeletal: Reports: None Cancer: Reports: None Other Pertinent Past Medical History: SLEEP APNEA, OBESITY, - Surgical History General Surgical History: Reports: Cholecystectomy, Orthopedic ( LEFT ELBOW, RIGHT ANKLE FUSION, RIGHT KNEE SCOPE,COMPRESSION FX L 1,2,3 FX COCCYX.), Other (HEMORRHOID SURGERY) - Family History Family History: Reports: Unknown - Social History Smoking Status: Current every day smoker Hx Substance Use: No Alcohol Screening: Occasionally <MILO SAN - Last Filed: 01/15/17 03:31> Physical Exam - Physical Exam Appearance: Ill-appearing, Obese Ill-appearing: Moderate Pain Distress: Moderate Eyes: TIM ENT: Dry mucosa (Poor dentition with multiple caries. ) Respiratory: Airway patent Cardiovascular: RRR, Pulses normal, No rub, No murmur GI/: Soft, Nontender, No masses, Bowel sounds normal, No Organomegaly Musculoskeletal: Limited ROM (left hip ), Edema (3 + pitting edema lowe ext ) Skin: Warm, Dry Neurological: Alert, Oriented Psychiatric: Anxious <MLIO SAN Last Filed: 01/15/17 03:31> Interpretation - Radiology Interpretation Radiology Interpretation By: Radiologist Radiology Results: Positive Exam Interpreted: CT Scan <GARTH LONGO - Last Filed: 01/11/17 19:57> Physician Notification - Case Discussed Endorsed To/Discussed With: Dr Oh Time of Discussion: 18:53 <MILO SAN Last Filed: 01/15/17 03:31> Critical Care Note - Critical Care Note Total Time (mins): 0 <GARTH LONGO - Last Filed: 01/11/17 19:57> Course - Course Hematology/Chemistry: 01/11/17 18:51 01/11/17 18:51 <GARTH LONGO - Last Filed: 01/11/17 19:57> - Course Hematology/Chemistry: 01/11/17 18:51 01/11/17 18:51 <MILO SAN - Last Filed: 01/15/17 03:31> - Course Orders, Labs, Meds: Lab Review 01/11/17 01/11/17 06:45 18:51 WBC 8.33 RBC 4.48 L Hgb 13.0 L Hct 40.1 L MCV 89.5 MCH 29.0 MCHC 32.4 RDW Coeff of Scott 16.2 H Plt Count 204 Immature Gran % (Auto) 0.5 Neut % (Auto) 71.9 Lymph % (Auto) 17.0 [place] % (Auto) 7.4 Eos % (Auto) 2.0 Baso % (Auto) 1.2 Immature Gran # (Auto) 0.0 Neut # 6.0 Lymph # 1.4 [place] # 0.6 Eos # 0.2 Baso # 0.1 Puncture Site Rradial O2 Saturation 82.0 L ABG pH 7.315 L ABG pCO2 50.3 H ABG pO2 51.0 L* ABG HCO3 25.6 ABG Total CO2 27 ABG Base Excess -1 Chase Test + FiO2 % 21.0 Sodium 135 L Potassium 4.2 Chloride 97 L Carbon Dioxide 22 L Anion Gap 20.2 BUN 12 Creatinine 0.74 Estimated GFR (MDRD) 104.00 BUN/Creatinine Ratio 16.21 Glucose 116 H Calcium 8.5 Total Bilirubin 0.48 AST 70 H ALT 20 Alkaline Phosphatase 124 H Total Protein 6.8 Albumin 3.5 Globulin 3.3 Albumin/Globulin Ratio 1.06 Amylase 12 L Lipase 5 L Plasma/Serum Alcohol 157.3 H Orders Category Date Time Status ABG DRAW REQUEST Stat CARDIO 01/11/17 18:44 Completed TRANSFER TO OUTSIDE FACILITY .TO [facility] 01/11/17 19:59 Active ([place], [place]) WRITE TRANSFER/SBAR NOTE ONCE CARE 01/11/17 19:59 Completed DISCHARGE ASSESSMENT ONCE DISCHARGE 01/11/17 19:59 Completed WRITE DISCHARGE NOTE ONCE DISCHARGE 01/11/17 19:59 Completed ED IV/MEDIPORT/POWERPORT .ONCE EMERGENCY 01/11/17 19:00 Active ABG Stat LAB 01/11/17 06:45 Completed AMYLASE Stat LAB 01/11/17 18:51 Completed CBC W/ AUTO DIFF Stat LAB 01/11/17 18:51 Completed COMPREHENSIVE METABOLIC PANEL Stat LAB 01/11/17 18:51 Completed ETOH LEVEL [BLOOD ALCOHOL] Stat LAB 01/11/17 18:51 Completed LIPASE Stat LAB 01/11/17 18:51 Completed 0.9 % Sodium Chloride [Saline Flush] MEDS 01/11/17 19:00 Discontinued 1 syr IVF PRN PRN Folic Acid MEDS 01/11/17 19:51 Discontinued 5 mg .ROUTE .STK-MED ONE Mvi, Adult No.1 with Vit K [Infuvite Adult] MEDS 01/11/17 19:53 Discontinued 10 ml IV .STK-MED ONE Potassium Chloride/D5-0.45NACL [D5%-1/2Ns-KCl 20 Meq/l MEDS 01/11/17 19:00 Discontinued IV Juanita] 1,000 ml Mvi, Adult No.1 with Vit K [Infuvite Adult] 10 ml Vitamin B-1 Inj [Thiamine] 100 mg Folic Acid 1 mg IV 125 mls/hr Vitamin B-1 Inj [Thiamine] MEDS 01/11/17 19:49 Discontinued 200 mg .ROUTE .STK-MED ONE CT CERVICAL SPINE W/O CONTRAST Stat RADS 01/11/17 18:[address] HEAD W/O CONTRAST Stat RADS 01/11/17 18:[address] PELVIS W/O CONTRAST Stat RADS 01/11/17 18:42 Completed Medications Discontinued Medications Generic Name Dose Route Start Last Admin Trade Name Freq PRN Reason Stop Dose Admin Multivitamins/Minerals 10 ml/ 1,011.2 mls @ 125 mls/hr 01/11/17 19:00 19:58 Thiamine HCl 100 mg/ Folic IV 125 mls/hr Acid 1 mg/ Potassium Chloride/ .Q8H6M DEREK Administration Dextrose/Sod Cl Sodium Chloride 1 syr 01/11/17 19:00 Saline Flush IVF PRN PRN To flush IV Vital Signs: Temp Pulse Resp BP Pulse Ox 01/11/17 18:18 97.7 F 76 20 123/56 L 86 L Departure - Departure Time of Disposition: 19:57 Pt referred to PMD for follow-up: Yes Transfer Form Completed: Yes Disposition Discussed With: Patient, Family <GARTH LONGO - Last Filed: 01/11/17 19:57> <MILO SAN - Last Filed: 01/15/17 03:31> - Departure Disposition: TSF SHORT-TRM HOSP Discharge Problem: Right femoral fracture Condition: Stable Allergies/Adverse Reactions: Allergies No Known Allergies Allergy (Unverified 01/11/17 18:29) Home Medications: Ambulatory Orders Hydrocodone Bit/Acetaminophen [[place] 7.5-325] 1 each PO Q6HR PRN #120 tablet Insulin Regular, Human [Humulin R] See Protocol IJ ACHS #1 ml 10/31/16
[2017-01-11 18:48] LABS: ABG PCO2 50.3 mmHg (35-45); ABG PH 7.315 (7.35-7.45)
[2017-01-11 18:54] LABS: ABG BASE EXCESS -1 (-2.0-2.0); ABG HCO3 25.6 (22.0-26.0); ABG TCO2 27 (22.0-28.0)
[2017-01-11 18:54] LABS: BASOPHILS # (AUTO) 0.1 K/uL (0-0.2); BASOPHILS % (AUTO) 1.2 % (0.0-3.0); EOSINOPHILS # (AUTO) 0.2 K/ul (0.0-0.7); HEMATOCRIT 40.1 % (42.0-52.0); IMMATURE GRANULOCYTE % (AUTO) 0.5 % (0.0-5.0); LYMPHOCYTES # (AUTO) 1.4 K/uL (0.60-3.4); MEAN CORPUSCULAR HGB CONC 32.4 (31.8-35.4); MEAN CORPUSCULAR VOLUME 89.5 fl (80.0-94.0); MONOCYTES # (AUTO) 0.6 K/uL (0.4-2.0); MONOCYTES % (AUTO) 7.4 (0-10); NEUTROPHILS % (AUTO) 71.9; PLATELET COUNT 204 10^3/uL (140-440); RED BLOOD COUNT 4.48 10^6/ul (4.70-6.10); WHITE BLOOD COUNT 8.33 K/ul (4.2-10.2)
[2017-01-11] MEDS ORDERED: [UNRECOGNIZED DRUG - OTHER] IV SCH (19:00)
[2017-01-11] MEDS ORDERED: FOLIC ACID IV SCH (19:00)
[2017-01-11] MEDS ORDERED: INFUVITE ADULT IV SCH (19:00)
[2017-01-11] MEDS ORDERED: THIAMINE IV SCH (19:00)
[2017-01-11 19:15] LABS: ALBUMIN 3.5 g/dL (3.4-5.0); ALBUMIN/GLOBULIN RATIO 1.06; ANION GAP 20.2; BILIRUBIN,TOTAL 0.48 mg/dL (0.00-1.20); BUN/CREATININE RATIO 16.21; CALCIUM 8.5 mg/dL (8.2-10.2); CREATININE 0.74 mg/dL (0.60-1.10); POTASSIUM 4.2 mmol/L (3.5-5.1); TOTAL PROTEIN 6.8 g/dL (5.8-8.1)
--- NOTE | 2017-01-11 19:37 | CT ---
EXAM: Noncontrast CT head. HISTORY: Fall. COMPARISON: 08/29/2012 TECHNIQUE: Noncontrast CT head was performed with axial coronal and sagittal reconstructions. Findings: There is preservation of the peralta-white differential without evidence of definitive large vessel acu te cortical infarct identified. No acute intracranial hemorrhage is identified. No midline shift is identified. No definitive intracranial mass lesion is identified within technical limitations of no ncontrast CT. The basal cisterns are patent. There is mild ventricular enlargement suggesting diffu se brain parenchymal volume loss. Bilateral periventricular predominant white matter hypodensities a re present. Limited evaluation of the skull demonstrates no visualized lucent skull acute fractures or destructive osseous lesions identified within the visualized portions of the skull. Partially vi sualized paranasal sinuses and mastoid air cells demonstrate sclerosis of the bilateral mastoid air cells which may relate to sequela of previous mastoid disease. There is minimal patchy fluid filled opacification of bilateral mastoid air cells also seen. There is a density seen within the posterior left scalp soft tissues axial image number 18 which may represent scalp contusion site. Impression: 1. No acute intracranial hemorrhage or definitive large vessel acute cortical infarct identified. 2. Diffuse brain parenchymal volume loss likely age related. 3. Bilateral white matter hypodensities which are not specicific but can be seen with chronic microv ascular ischemic disease. 4. Sclerosis of the bilateral mastoid air cells again seen which may relate to sequela chronic mast oid disease. Patchy fluid within the bilateral mastoid air cells may also relate to an element of a ctive mastoid inflammation. 5. Possible scalp contusion site involving the posterior left scalp.
--- NOTE | 2017-01-11 19:46 | CT ---
EXAM: Noncontrast CT of the cervical spine. HISTORY: Fall COMPARISON: None available at the time of dictation. TECHNIQUE: Noncontrast CT of the cervical spine was performed with axial, coronal and sagittal recon structions were obtained and reviewed. FINDINGS: Sagital reconstructions demonstrate no significant listhesis. Coronal reconstructions demonstrate dextroscoliosis of the cervical spine versus convex right curvat ure the cervical spine due to positioning.. No acute cervical spinal fractures are identified. There is preservation of the normal cervical vertebral body heights. Paravertebral soft tissues are witho ut paravertebral fluid collections, hematomas or masses identified on limited evaluation. C2-3:The central canal appears patent. There is mild right neural foraminal narrowing due to facet joint degenerative hypertrophy. The left bony neural foramen appears patent C3-4:The central canal appears patent. There is moderate left and minimal right neural foraminal na rrowing due to left greater right facet joint degenerative hypertrophy and tiny uncovertebral osteop hytes C4-5:The there is minimal intervertebral disc height loss suggesting minimal degenerative disc disea se. There is trace central canal narrowing due to a trace posterior disc osteophyte complex. There is mild left and moderate to severe right neural foraminal narrowing due to right greater left face t joint degenerative hypertrophy uncovertebral osteophytes. C5-6:There is mild intervertebral disc height loss suggesting degenerative disease. The central can al and bilateral bony neural foramen appear patent C6-7:. The central canal and bilateral bony neural foramen appear patent. C7-T1:the central canal appears patent. There is mild left neural foraminal narrowing due to facet joint degenerative hypertrophy. The right bony neural foramen appears patent. IMPRESSION: 1. No acute fractures of the cervical spine identified. 2. Cervical spine degenerative changes with elements of central canal and neural foraminal narrowin g as detailed.
--- NOTE | 2017-01-11 19:47 | CT ---
EXAM: CT pelvis HISTORY: Fall, pelvic pain TECHNIQUE: CT pelvis without contrast. Multiplanar images provided. FINDINGS: Comparison may be made to 07/19/2015. Bones appear significantly demineralized. Subtle cortical discontinuity and short horizontal lucenc y of the lateral aspect of the right femoral neck may represent a hairline femoral neck fracture. C hronic appearing deformities of the pubic bones possibly from old injury. Mild to moderate symmetri c bilateral hip osteoarthritis. There is moderate arthropathy of the sacroiliac joints. No definit e sacral fracture. Severe degenerative changes of the lower spine. Intrapelvic structures reveal i ntact urinary bladder and grossly normal bowel gas pattern. IMPRESSION: Cannot exclude hairline fracture of the right femoral neck (coronal image 69). Region o f interest was not described in the history, correlate with clinical presentation.
[2017-01-11] MEDS ORDERED: THIAMINE ONE (19:49)
[2017-01-11] MEDS ORDERED: FOLIC ACID ONE (19:51)
[2017-01-11] MEDS ORDERED: INFUVITE ADULT IV ONE (19:53)
== END 2017-01-11 21:30 | disposition short-term general hospital (02) ==
LOC: ED 18:16
DX: S72.91XA Unspecified fracture of right femur, initial encounter for closed fracture (principal); V00.811A Fall from moving wheelchair (powered), initial encounter; F17.210 Nicotine dependence, cigarettes, uncomplicated; F10.129 Alcohol abuse with intoxication, unspecified
CPT/HCPCS: 36415; 80053; 80307; 82150; 82803; 83690; 85025; 96361; 96374; 96375; 99285

== ENCOUNTER 2017-06-24 11:42 | Inpatient (IN) | payer OTHER ==
[2017-06-24] MEDS ORDERED: SODIUM CHLORIDE 1,000 ML IV STA ×2 (11:54→14:05)
--- NOTE | 2017-06-24 11:58 | ED.PDOC ---
General ED Provider: Dr. MIKAEL WEBER JR Chief Complaint: Weakness Stated Complaint: home health called ambulance, states he had altered loc. pt is alert now, complains of weakness. feels he needs to go to the intermediate to stay. [ End ]96.4 66 18 91% 145/99 10] Time Seen by Physician: 12:03 Mode of Arrival: Ambulance Information Source: Patient, EMT Exam Limitations: No limitations [facility] Nursing and Triage Documentation Reviewed and Agree: No Review of Systems - Review Of Systems Constitutional: Reports: Malaise, Weakness Eyes: Reports: No symptoms Ears, Nose, Mouth, Throat: Reports: No symptoms Respiratory: Reports: Cough Cardiac: Reports: No symptoms GI: Reports: No symptoms : Reports: No symptoms Musculoskeletal: Reports: Joint pain, Muscle pain, Muscle stiffness Skin: Reports: No symptoms Neurological: Reports: Weakness Endocrine: Reports: No symptoms Hematologic/Lymphatic: Reports: No symptoms All Other Systems: Other Past Medical History - Past Medical History Endocrine: Reports: DM 1, DM 2 Cardiovascular: Reports: Hypertension, CHF Respiratory: Reports: COPD Hematological: Reports: None Gastrointestinal: Reports: None Genitourinary: Reports: None Neuro/Psych: Reports: None Musculoskeletal: Reports: None Cancer: Reports: None Other Pertinent Past Medical History: SLEEP APNEA, OBESITY - Surgical History General Surgical History: Reports: Cholecystectomy, Orthopedic (LEFT ELBOW, RIGHT ANKLE FUSION, RIGHT KNEE SCOPE,COMPRESSION FX L 1,2,3 FX COCCYX.), Other (HEMORRHOID SURGERY) - Family History Family History: Reports: Unknown - Social History Smoking Status: Current every day smoker Hx Substance Use: No Alcohol Screening: Occasionally Physical Exam - Physical Exam Appearance: Well-appearing Pain Distress: Mild Eyes: TIM, EOMI, Conjunctiva clear ENT: Ears normal, Nose normal, Oropharynx normal Neck: Supple Respiratory: Airway patent, Crackles (rigth upper) Cardiovascular: RRR, Pulses normal, No rub, No murmur GI/: Soft, Nontender, No masses, Bowel sounds normal, No Organomegaly Musculoskeletal: Normal strength, ROM intact, No edema, No calf tenderness Skin: Warm, Dry, Normal color Neurological: Sensation intact, Motor intact, Reflexes intact, Cranial nerves intact, Alert, Oriented Psychiatric: Affect appropriate, Mood appropriate Interpretation - EKG Interpretation Time of EKG #1: 12:36 Rate: Normal Rhythm: Sinus ST Segment: Other (first degree block t inversion not changed [id number]) Critical Care Note - Critical Care Note Total Time (mins): 15 Course - Course Hematology/Chemistry: 06/24/17 12:30 06/24/17 12:30 Orders, Labs, Meds: Lab Review 06/24/17 06/24/17 06/24/17 12:30 12:30 12:30 WBC 6.30 RBC 4.68 L Hgb 12.6 L Hct 39.2 L MCV 83.8 MCH 26.9 L MCHC 32.1 RDW Coeff of Scott 16.0 H Plt Count 276 Immature Gran % (Auto) 0.3 Neut % (Auto) 61.9 Lymph % (Auto) 22.7 [place] % (Auto) 9.4 Eos % (Auto) 4.4 Baso % (Auto) 1.3 Immature Gran # (Auto) 0.0 Neut # 3.9 Lymph # 1.4 [place] # 0.6 Eos # 0.3 Baso # 0.1 D-Dimer (Manual) Puncture Site O2 Saturation ABG pH ABG pCO2 ABG pO2 ABG HCO3 ABG Total CO2 ABG Base Excess Chase Test FiO2 % Sodium 131 L Potassium 4.4 Chloride 87 L Carbon Dioxide 34 H Anion Gap 14.4 BUN 9 Creatinine 0.70 Estimated GFR (MDRD) 111.00 BUN/Creatinine Ratio 12.85 Glucose 72 L Lactic Acid Calcium 9.5 Total Bilirubin 0.56 AST 19 ALT 7 L Alkaline Phosphatase 131 H Total Creatine Kinase 28 Troponin I < 0.0100 B-Natriuretic Peptide 146 H Total Protein 7.7 Albumin 2.9 L Globulin 4.8 Albumin/Globulin Ratio 0.60 Procalcitonin Urine Color Urine Clarity Urine pH Ur Specific [place] Urine Protein Urine Glucose (UA) Urine Ketones Urine Blood Urine Nitrite Urine Bilirubin Urine Urobilinogen Ur Leukocyte Esterase 06/24/17 06/24/17 06/24/17 12:30 12:30 12:30 WBC RBC Hgb Hct MCV MCH MCHC RDW Coeff of [place] Plt Count Immature Gran % (Auto) Neut % (Auto) Lymph % (Auto) [place] % (Auto) Eos % (Auto) Baso % (Auto) Immature Gran # (Auto) Neut # Lymph # [place] # Eos # Baso # D-Dimer (Manual) 3203.70 Puncture Site O2 Saturation ABG pH ABG pCO2 ABG pO2 ABG HCO3 ABG Total CO2 ABG Base Excess [place] Test FiO2 % Sodium Potassium Chloride Carbon Dioxide Anion Gap BUN Creatinine Estimated GFR (MDRD) BUN/Creatinine Ratio Glucose Lactic Acid 6.1 Calcium Total Bilirubin AST ALT Alkaline Phosphatase Total Creatine Kinase Troponin I B-Natriuretic Peptide Total Protein Albumin Globulin Albumin/Globulin Ratio Procalcitonin < 0.05 Urine Color Urine Clarity Urine pH Ur Specific [place] Urine Protein Urine Glucose (UA) Urine Ketones Urine Blood Urine Nitrite Urine Bilirubin Urine Urobilinogen Ur Leukocyte Esterase 06/24/17 06/24/17 12:35 15:00 WBC RBC Hgb Hct MCV MCH MCHC RDW Coeff of [place] Plt Count Immature Gran % (Auto) Neut % (Auto) Lymph % (Auto) [place] % (Auto) Eos % (Auto) Baso % (Auto) Immature Gran # (Auto) Neut # Lymph # [place] # Eos # Baso # D-Dimer (Manual) Puncture Site L rad O2 Saturation 83.0 L ABG pH 7.388 ABG pCO2 57.1 H ABG pO2 49.0 L* ABG HCO3 34.4 H ABG Total CO2 36 H ABG Base Excess 9 H Chase Test + FiO2 % 21.0 Sodium Potassium Chloride Carbon Dioxide Anion Gap BUN Creatinine Estimated GFR (MDRD) BUN/Creatinine Ratio Glucose Lactic Acid Calcium Total Bilirubin AST ALT Alkaline Phosphatase Total Creatine Kinase Troponin I B-Natriuretic Peptide Total Protein Albumin Globulin Albumin/Globulin Ratio Procalcitonin Urine Color Yellow Urine Clarity Clear Urine pH 7.5 Ur Specific [place] 1.010 Urine Protein Negative Urine Glucose (UA) Negative Urine Ketones Negative Urine Blood Negative Urine Nitrite Negative Urine Bilirubin Negative Urine Urobilinogen 1.0 Ur Leukocyte Esterase Negative Orders Category Date Time Status ADMIT PATIENT INPATIENT .TO [facility] (MONITORED BED) ADMISSION 06/24/17 14: 57 Active ABG DRAW REQUEST Stat CARDIO 06/24/17 11:55 Completed EKG-(ED ONLY) Stat CARDIO 06/24/17 11:54 Completed ACTIVITY .Early Mobilization for VTE Prevention CARE 06/24/17 14:57 Active BLOOD GLUCOSE MONITORING 0630,1100,1700,2100 CARE 06/24/17 15:02 Active CASE MANAGEMENT CONSULT ONCE CARE 06/24/17 15:01 Active GIVE HS SNACK 2100 CARE 06/24/17 15:03 Active INTAKE & OUTPUT Q8HR CARE 06/24/17 14:57 Active NPO REMINDER: IMAGING ONCE CARE 06/24/17 13:55 Completed TELEMETRY MONITORING TELE CARE 06/24/17 14:59 Active VITAL SIGNS Q4HR CARE 06/24/17 14:57 Active ADA 1800 YOVANNY. DIET DIETARY 06/24/17 Dinner Ordered HS SNACK DIETARY 06/24/17 Dinner Ordered ED APPLY O2 .ONCE EMERGENCY 06/24/17 11:54 Active ED IV/MEDIPORT/POWERPORT .ONCE EMERGENCY 06/24/17 11:54 Active ABG Stat LAB 06/24/17 12:35 Completed B-TYPE NATRIURETIC PEPTIDE Stat LAB 06/24/17 12:30 Completed BLOOD CULTURE Stat LAB 06/24/17 12:50 Received CBC W/ AUTO DIFF DAILY@0600 LAB 06/25/17 06:00 Ordered CBC W/ AUTO DIFF DAILY@0600 LAB 06/26/17 06:00 Ordered CBC W/ AUTO DIFF Stat LAB 06/24/17 12:30 Completed COMPREHENSIVE METABOLIC PANEL DAILY@0600 LAB 06/25/17 06:00 Ordered COMPREHENSIVE METABOLIC PANEL DAILY@0600 LAB 06/26/17 06:00 Ordered COMPREHENSIVE METABOLIC PANEL Stat LAB 06/24/17 12:30 Completed CREATINE KINASE Stat LAB 06/24/17 12:30 Completed D-DIMER Stat LAB 06/24/17 12:30 Completed LACTIC ACID Stat LAB 06/24/17 12:30 Completed PROCALCITONIN Stat LAB 06/24/17 12:30 Completed TROPONIN I Stat LAB 06/24/17 12:30 Completed UA [URINALYSIS C & S IF INDICATED] Stat LAB 06/24/17 15:00 Completed 0.9 % Sodium Chloride [Saline Flush] MEDS 06/24/17 11:54 Active 1 syr IVF PRN PRN Acetaminophen [Tylenol] MEDS 06/24/17 14:57 Active 650 mg PO Q4H PRN Ceftriaxone Sodium [Rocephin] MEDS 06/24/17 14:50 Discontinued 2 gm .ROUTE .STK-MED ONE Ceftriaxone Sodium [Rocephin] 1 gm MEDS 06/25/17 09:00 Active 0.9 % Sodium Chloride [Sodium Chloride] 50 ml IV DAILY Ceftriaxone Sodium [Rocephin] 2 gm MEDS 06/24/17 14:48 Active 0.9 % Sodium Chloride [Sodium Chloride] 100 ml IV ONCE Sodium Chloride 0.9% [Sodium Chloride] 1,000 ml MEDS 06/24/17 15:00 Active IV 75 mls/hr Sodium Chloride 0.9% [Sodium Chloride] 1,000 ml MEDS 06/24/17 14:05 Active IV 80 mls/hr Sodium Chloride 0.9% [Sodium Chloride] 1,000 ml MEDS 06/24/17 11:54 Discontinued IV BOLUS RESUSCITATION STATUS Routine OTHERS 06/24/17 14:[address] CHEST PE PROTOCOL Stat RADS 06/24/17 13:[address] CHEST W/O CONTRAST Stat RADS 06/24/17 12:[address] HEAD W/O CONTRAST Stat RADS 06/24/17 13:01 Completed Medications Generic Name Dose Route Start Last Admin Trade Name Freq PRN Reason Stop Dose Admin Acetaminophen 650 mg 06/24/17 14:57 Tylenol PO Q4H PRN Mild Pain Acetaminophen/Hydrocodone Bitart 1 tab 06/24/17 15:07 [place] 7.5-325 PO Q6HR PRN pain Albuterol Sulfate 1 vial 06/24/17 18:00 Albuterol 0.083% Neb NEB RTQ6H DEREK Albuterol/Ipratropium 1 vial 06/24/17 20:00 Duoneb NEB RTTID DEREK Atorvastatin Calcium 10 mg 06/25/17 09:00 Lipitor PO DAILY DEREK Azithromycin 500 mg 06/25/17 09:00 Zithromax PO DAILY DEREK Chlordiazepoxide HCl 25 mg 06/24/17 15:06 Librium PO Q6HR PRN Anxiety Escitalopram Oxalate 20 mg 06/25/17 09:00 Lexapro PO DAILY DEREK Sodium Chloride 1,000 mls @ 80 mls/hr 06/24/17 14:05 06/24/17 14:28 Sodium Chloride IV 06/25/17 02:34 80 mls/hr .[id number] STA Administration Ceftriaxone Sodium 2 gm/ 100 mls @ 100 mls/hr 06/24/17 14:48 06/24/17 14:54 Sodium Chloride IV 06/24/17 15:47 100 mls/hr ONCE STA Administration Ceftriaxone Sodium 1 gm/ 50 mls @ 75 mls/hr 06/25/17 09:00 Sodium Chloride IV DAILY DEREK Sodium Chloride 1,000 mls @ 75 mls/hr 06/24/17 15:00 Sodium Chloride IV .[id number] DEREK Insulin Glargine 25 unit 06/24/17 21:00 Lantus SUBCUT BID DEREK Insulin Human Regular 0 unit 06/24/17 17:00 Humulin R SUBCUT ACHS [facility] Protocol Lisinopril 10 mg 06/25/17 09:00 Zestril PO DAILY DEREK Methylprednisolone Sodium Succinate 125 mg 06/24/17 15:30 Solu-Medrol 125 Mg IVP Q12HR DEREK Fluticasone/Salmeterol 1 puff 06/24/17 21:00 Advair 250-50 Diskus IH BID DEREK Sodium Chloride 1 syr 06/24/17 11:54 06/24/17 14:54 Saline Flush IVF 1 syr PRN PRN Administration To flush IV Discontinued Medications Generic Name Dose Route Start Last Admin Trade Name Freq PRN Reason Stop Dose Admin Sodium Chloride 1,000 mls @ 1,000 mls/hr 06/24/17 11:54 06/24/17 12:46 Sodium Chloride IV 06/24/17 12:53 1,000 mls/hr BOLUS STA Administration Vital Signs: Temp Pulse Resp BP Pulse Ox 06/24/17 11:43 96.4 F L 66 18 145/99 H 91 L Departure - Departure Time of Disposition: 15:29 Disposition: ADMITTED INPATIENT Discharge Problem: Muscle weakness, Mental status alteration Condition: Fair Pt referred to PMD for follow-up: Yes Allergies/Adverse Reactions: Allergies No Known Allergies Allergy (Verified 06/24/17 11:50) Home Medications: Ambulatory Orders Hydrocodone Bit/Acetaminophen [[place] 7.5-325] 1 each PO Q6HR PRN #120 tablet Insulin Regular, Human [Humulin R] See Protocol IJ ACHS #1 ml 10/31/16
[2017-06-24 12:40] LABS: BASOPHILS # (AUTO) 0.1 K/uL (0-0.2); BASOPHILS % (AUTO) 1.3 % (0.0-3.0); EOSINOPHILS # (AUTO) 0.3 K/ul (0.0-0.7); EOSINOPHILS % (AUTO) 4.4 % (0.0-7.0); HEMATOCRIT 39.2 % (42.0-52.0); HEMOGLOBIN 12.6 g/dl (14.0-18.0); IMMATURE GRANULOCYTE % (AUTO) 0.3 % (0.0-5.0); LYMPHOCYTES # (AUTO) 1.4 K/uL (0.60-3.4); LYMPHOCYTES % (AUTO) 22.7 (10.0-50.0); MEAN CORPUSCULAR HEMOGLOBIN 26.9 pg (27.0-31.0); MEAN CORPUSCULAR HGB CONC 32.1 (31.8-35.4); MEAN CORPUSCULAR VOLUME 83.8 fl (80.0-94.0); MONOCYTES # (AUTO) 0.6 K/uL (0.4-2.0); MONOCYTES % (AUTO) 9.4 (0-10); NEUTROPHILS # (AUTO) 3.9 K/ul (2.0-6.9); NEUTROPHILS % (AUTO) 61.9; PLATELET COUNT 276 10^3/uL (140-440); RED BLOOD COUNT 4.68 10^6/ul (4.70-6.10)
[2017-06-24 12:41] LABS: ABG PCO2 57.1 mmHg (35-45); ABG PH 7.388 (7.35-7.45)
[2017-06-24 12:43] LABS: ABG BASE EXCESS 9 (-2.0-2.0); ABG HCO3 34.4 (22.0-26.0); ABG TCO2 36 (22.0-28.0)
[2017-06-24 13:08] LABS: ALANINE AMINOTRANSFERASE 7 U/L (12-78); ALBUMIN 2.9 g/dL (3.4-5.0); ALKALINE PHOSPHATASE 131 U/L (56-119); ANION GAP 14.4; ASPARTATE AMINO TRANSFERASE 19 U/L (15-37); BILIRUBIN,TOTAL 0.56 mg/dL (0.00-1.20); BLOOD UREA NITROGEN 9 mg/dL (7-18); BUN/CREATININE RATIO 12.85; CALCIUM 9.5 mg/dL (8.2-10.2); CARBON DIOXIDE 34 mmol/L (23-31); CHLORIDE 87 mmol/L (98-107); CREATINE KINASE 28 U/L; GLUCOSE 72 mg/dL (82-115); POTASSIUM 4.4 mmol/L (3.5-5.1); SODIUM 131 mmol/L (136-145); TOTAL PROTEIN 7.7 g/dL (5.8-8.1)
--- NOTE | 2017-06-24 13:42 | CT ---
EXAM: CT of the head without contrast History: Altered mental status. Comparison: Head CT 01/11/2017 Technique: Multiplanar CT images through the head were obtained without the administration of IV con trast Findings: The visualized paranasal sinuses and mastoid air cells are clear in general. No acute juan varial abnormalities. Intracranially there is stable atrophy. No dominant mass or midline shift. No hydrocephalous. No a cute intracranial hemorrhage or abnormal extraaxial fluid collections. No change in the periventricu lar and subcortical white matter hypodensities. Impression: No acute intracranial process. Atrophy and chronic small vessel ischemic disease.
--- NOTE | 2017-06-24 13:47 | CT ---
EXAM: CT of the chest without contrast History: Chest pain. Comparison: Chest radiograph 06/30/2015, chest CT 05/02/2015 Technique: Multiplanar CT images through the thorax were obtained without the administration of IV c ontrast Findings: Heart is mildly enlarged. Coronary calcifications. No axillary adenopathy. Bilateral gy necomastia. No pathologically enlarged mediastinal lymph nodes. Evaluation for hilar lymph nodes is limited due to the lack of contrast administration. Left upper lobe consolidation. Right lower lob e consolidation versus rounded atelectasis. Small to moderate partially loculated right pleural effu mathew. No pneumothorax. Trace left pleural effusion. Within the visualized upper abdomen, status post cholecystectomy. There is atrophy of the pancreas. Degenerative changes of the spine. Impression: 1. Left upper lobe pneumonia. Follow-up recommended to assure resolution and exclude any underlying neoplastic etiology. 2. Right lower lobe pneumonia and/or rounded atelectasis. Follow-up also recommended. 3. Small to moderate partially loculated right pleural effusion. 4. Mild cardiomegaly and coronary artery disease.
[2017-06-24] MEDS ORDERED: ROCEPHIN 2 GM in SODIUM CHLORIDE 100 ML IV STA (14:48)
[2017-06-24] MEDS ORDERED: ROCEPHIN ONE (14:50)
--- NOTE | 2017-06-24 14:51 | CT ---
EXAM: CTA chest for PE HISTORY: Shortness of breath with elevated D-dimer COMPARISON: CT chest 06/24/2017 and numerous priors TECHNIQUE: CTA of the chest was performed from the lung apices to the upper abdomen after 125 ml of Omnipaque IV contrast was administered using PE protocol. 3-D imaging was also provided. FINDINGS: There is no filling defect in the pulmonary arteries to the level of the subsegmental pulm onary arteries. The heart is normal without signs of ventricular strain. The aorta is unremarkable. Heart is normal without pericardial effusion. There are few nonpathologically enlarged mediastinal lymph nodes. Left calcified hilar lymph nodes are present. Small right and trace left pleural effusion is identified. Right pleural effusion is partially locul ated. There is no pneumothorax. There is consolidation in the left upper lobe with mild ground-glas s extending into the lingula. There is consolidation in the right lower lobe with airway thickening. There is minimal left lung base atelectasis. Central airways are patent. There is mild bilateral gynecomastia. Liver and limited views of the intra-abdominal organs are unre markable. The osseous structures demonstrate degenerative disease. IMPRESSION: No pulmonary embolism. 1. No pulmonary embolism. 2. Left upper lobe and lingula and pneumonia is not significantly changed from prior with consolidat ion in the right lower lobe suggestive of pneumonia. 3. Stable small right and trace left pleural fluid. Right effusion is partially loculated. 4. Mild degenerative disease of the spine.
[2017-06-24] MEDS ORDERED: TYLENOL PO PRN (14:57)
[2017-06-24] MEDS ORDERED: SODIUM CHLORIDE 1,000 ML IV SCH (15:00)
[2017-06-24] MEDS ORDERED: LIBRIUM PO PRN (15:06)
[2017-06-24] MEDS ORDERED: NORCO 7.5-325 PO PRN (15:07)
[2017-06-24 15:20] LABS: BILIRUBIN,URINE Negative (NEGATIVE); KETONES,URINE Negative (NEGATIVE); LEUKOCYTE ESTERASE ,URINE Negative (NEGATIVE); NITRITE,URINE Negative (NEGATIVE); PH,URINE 7.5 (5-9); PROTEIN,URINE Negative (NEGATIVE); URINE, BLOOD Negative (NEGATIVE)
[2017-06-24 15:21] LABS: ADD URINE MICROSCOPIC NO
[2017-06-24 15:48] VITALS: BMI 39.7
[2017-06-24] MEDS: FOLIC ACID 1 MG, INFUVITE ADULT 10 ML, THIAMINE 100 MG in SODIUM CHLORIDE 0.9%-KCL 20 M... IV SCH (17:06)
[2017-06-24] MEDS: SOLU-MEDROL 125 MG IVP SCH ×2 (17:06→20:42)
[2017-06-24] MEDS: HUMULIN R SUBCUT SCH (17:28)
[2017-06-24] MEDS ORDERED: ALBUTEROL 0.083% NEB NEB SCH (18:00)
[2017-06-24] MEDS: ADVAIR 250-50 DISKUS IH SCH (20:41)
[2017-06-24] MEDS: LOVENOX SUBCUT SCH (20:42)
[2017-06-24] MEDS: LANTUS SUBCUT SCH (20:43)
[2017-06-24] MEDS: NYSTOP POWDER TP SCH (20:43)
[2017-06-24] MEDS: DUONEB NEB SCH (21:22)
[2017-06-25] MEDS ORDERED: FOLIC ACID ONE ×2 (03:16→22:34)
[2017-06-25] MEDS ORDERED: INFUVITE ADULT IV ONE ×2 (03:16→22:34)
[2017-06-25] MEDS ORDERED: THIAMINE ONE ×2 (03:16→22:34)
[2017-06-25] MEDS: FOLIC ACID 1 MG, INFUVITE ADULT 10 ML, THIAMINE 100 MG in SODIUM CHLORIDE 0.9%-KCL 20 M... IV SCH ×2 (04:12→22:40)
[2017-06-25] MEDS: HUMULIN R SUBCUT SCH ×5 (05:06→20:40)
[2017-06-25 05:11] LABS: BASOPHILS % (AUTO) 0.3 % (0.0-3.0); HEMATOCRIT 37.2 % (42.0-52.0); IMMATURE GRANULOCYTE % (AUTO) 0.8 % (0.0-5.0); LYMPHOCYTES # (AUTO) 0.3 K/uL (0.60-3.4); MEAN CORPUSCULAR HGB CONC 32.3 (31.8-35.4); MEAN CORPUSCULAR VOLUME 83.6 fl (80.0-94.0); MONOCYTES % (AUTO) 1.1 (0-10); NEUTROPHILS # (AUTO) 3.4 K/ul (2.0-6.9); NEUTROPHILS % (AUTO) 90.8; PLATELET COUNT 278 10^3/uL (140-440); RED BLOOD COUNT 4.45 10^6/ul (4.70-6.10); WHITE BLOOD COUNT 3.73 K/ul (4.2-10.2)
[2017-06-25] MEDS: DUONEB NEB SCH ×3 (05:16→22:30)
[2017-06-25 05:35] LABS: ALANINE AMINOTRANSFERASE < 6 U/L (12-78); ALBUMIN 2.5 g/dL (3.4-5.0); ALBUMIN/GLOBULIN RATIO 0.61; ALKALINE PHOSPHATASE 116 U/L (56-119); ANION GAP 15.6; ASPARTATE AMINO TRANSFERASE 12 U/L (15-37); BILIRUBIN,TOTAL 0.24 mg/dL (0.00-1.20); BLOOD UREA NITROGEN 12 mg/dL (7-18); BUN/CREATININE RATIO 16.43; CALCIUM 8.6 mg/dL (8.2-10.2); CARBON DIOXIDE 28 mmol/L (23-31); CHLORIDE 93 mmol/L (98-107); CREATININE 0.73 mg/dL (0.60-1.10); GLUCOSE 307 mg/dL (82-115); POTASSIUM 4.6 mmol/L (3.5-5.1); SODIUM 132 mmol/L (136-145); TOTAL PROTEIN 6.6 g/dL (5.8-8.1)
[2017-06-25] MEDS ORDERED: NON-FORMULARY MEDICATION (Escitalopram Oxalate [Lexapro] 20 MG) PO SCH ×22 (09:00)
[2017-06-25] MEDS: ROCEPHIN 1 GM in SODIUM CHLORIDE 50 ML IV SCH (09:56)
[2017-06-25] MEDS: LIPITOR PO SCH (09:59)
[2017-06-25] MEDS: ZESTRIL PO SCH (09:59)
[2017-06-25] MEDS: ZITHROMAX PO SCH (09:59)
[2017-06-25] MEDS: ADVAIR 250-50 DISKUS IH SCH ×2 (09:59→20:18)
[2017-06-25] MEDS: SOLU-MEDROL 125 MG IVP SCH ×2 (10:00→20:18)
[2017-06-25] MEDS: LANTUS SUBCUT SCH ×2 (10:00→20:19)
[2017-06-25] MEDS: LEXAPRO PO SCH (10:00)
[2017-06-25] MEDS: NYSTOP POWDER TP SCH ×3 (10:00→20:20)
--- NOTE | 2017-06-25 15:12 | RS.OTINEVL ---
Subjective - Patient information Date of Evaluation: 06/25/17 Admitted From:: Emergency Dept Diagnosis: Pneumonia Usual Living Arrangement: Alone Living Arrangement Comments: Pt lives in an apartment alone. He has a girlfriend he says. Pt reports he has help 3 hours a day during the week and 2 hours a day on Friday and Friday. Home Environment: Apartment Medical History: Diabetes, CHF Medical History Comments:: anxiety, sleep apnea, respiratory disorder Surgical History Comments:: Rt. ankle fusion, Left elbow surgery. Open andrei 2010. - Level of function Current Equipment Used at Home: Oxygen Pain Assessment - Pain Pain Score: 0 Interventions - Objective Patient Orientation: Person, Place, Situation Current Interventions: IV's, Oxygen, Telemetry Observation: Pt is talking to a cockroach on top of the TV. His name is Guero something. He is blue and white. Pt is unkept. Interventions - ROM Right Upper Extremity AROM: WFL's Left Upper Extremity AROM: WFL's - Strength Right Upper Extremity Strength: Mild Weakness Left Upper Extremity Strength: Mild Weakness - Sensation Right Upper Extremity Sensation: Intact/Normal Left Upper Extremity Sensation: Intact/Normal Balance - Sitting Balance Static Sitting Balance: Fair Dynamic Sitting Balance: Fair - Standing Balance Static Standing Balance: Zero Dynamic Standing Balance: Zero ADL Skills - Self Feeding Self Feeding: Independent - Grooming Grooming: Mod Assist - Bathing Bathing UE: CGA, Min Assist Bathing LE: Mod Assist - Dressing Dressing UE: Min Assist Dressing LE: Max Assist - Toilet Management Toileting Management: 1 person assist Functional Mobility - Bed Mobility Rolling R/L: Mod Assist Scooting: Max Assist Supine to Sit: Max Assist Sit to Supine: Max Assist - Transfers Sit to Stand: Not Tested Stand to Sit: Not Tested Stand Pivot Transfers: Not Tested Additional Treatment Performed - Time with patient Total treatment time: 20 Activities Patient Interests:: Watching Television, Visiting/Socializing Patient Education Patient Education: Education of diagnosis, Home Exercise Program, Home Safety, Education of Plan of Care Teaching Recipient: Patient Teaching Methods: Discussion Assessment Problem List:: Decreased level of function, Requires training/education, Decreased safety/Risk of falls, Weakness Rehab Potential: Good Further Therapy Indicated?: Yes Short Term Goals - Goals GOAL 1: Pt to increase BUE strength to 4+/5. Goal to be met by: 07/02/17 GOAL 2: Pt to tolerate BUE exercises sitting in bed. Goal to be met by: 07/02/17 GOAL 3: Pt to tollerate sitting EOB for 10 minutes. Goal to be met by: 07/02/17 [employer] Goals GOAL 1: Pt to increase BUE strength to 5/5. Goal to be met by: 07/04/17 GOAL 2: Pt to tolerate BUE exercises sitting in bed x 20 reps. Goal to be met by: 07/03/17 GOAL 3: Pt to tollerate sitting EOB for 15 minutes. Goal to be met by: 07/04/17 Plan Plan of Care: Therapeutic EX, Neuromuscular Re-Educ, Therapeutic Activity, Self- Care/Home Management Frequency of Treatment: 1-2 X day, as tolerated Duration of Treatment: 2 Weeks Anticipated Discharge Destination: [facility] Facility Has the Physician been added for Co-signature?: Yes
[2017-06-25] MEDS ORDERED: ZOFRAN 4 MG/2 ML ONE (16:26)
[2017-06-25] MEDS: ZOFRAN 4 MG/2 ML IVP PRN (16:30)
[2017-06-25] MEDS: PROTONIX PO SCH (17:40)
[2017-06-25] MEDS: CARAFATE PO SCH ×2 (17:40→20:16)
[2017-06-25] MEDS: LOVENOX SUBCUT SCH (20:17)
[2017-06-25] MEDS: LIBRIUM PO PRN (20:23)
[2017-06-25] MEDS: NORCO 7.5-325 PO PRN (20:24)
[2017-06-26 04:56] LABS: BASOPHILS % (AUTO) 0.1 % (0.0-3.0); HEMATOCRIT 33.8 % (42.0-52.0); IMMATURE GRANULOCYTE % (AUTO) 0.6 % (0.0-5.0); LYMPHOCYTES # (AUTO) 0.5 K/uL (0.60-3.4); LYMPHOCYTES % (AUTO) 5.8 (10.0-50.0); MEAN CORPUSCULAR HEMOGLOBIN 26.8 pg (27.0-31.0); MEAN CORPUSCULAR HGB CONC 32.5 (31.8-35.4); MEAN CORPUSCULAR VOLUME 82.4 fl (80.0-94.0); MONOCYTES # (AUTO) 0.1 K/uL (0.4-2.0); MONOCYTES % (AUTO) 1.5 (0-10); NEUTROPHILS # (AUTO) 7.3 K/ul (2.0-6.9); PLATELET COUNT 279 10^3/uL (140-440); WHITE BLOOD COUNT 7.91 K/ul (4.2-10.2)
[2017-06-26 05:17] LABS: ALBUMIN 2.5 g/dL (3.4-5.0); ALBUMIN/GLOBULIN RATIO 0.64; BILIRUBIN,TOTAL 0.23 mg/dL (0.00-1.20); BUN/CREATININE RATIO 17.33; CALCIUM 8.7 mg/dL (8.2-10.2); CREATININE 0.75 mg/dL (0.60-1.10); TOTAL PROTEIN 6.4 g/dL (5.8-8.1)
[2017-06-26] MEDS: DUONEB NEB SCH ×3 (05:18→22:15)
[2017-06-26] MEDS: PROTONIX PO SCH (05:38)
[2017-06-26] MEDS: CARAFATE PO SCH ×4 (05:38→20:37)
[2017-06-26] MEDS: HUMULIN R SUBCUT SCH ×2 (05:42→12:25)
[2017-06-26] MEDS: LIPITOR PO SCH (08:38)
[2017-06-26] MEDS: ZESTRIL PO SCH (08:38)
[2017-06-26] MEDS: ADVAIR 250-50 DISKUS IH SCH ×2 (08:38→20:36)
[2017-06-26] MEDS: LANTUS SUBCUT SCH ×2 (08:38→20:39)
[2017-06-26] MEDS: ZITHROMAX PO SCH (08:38)
[2017-06-26] MEDS: LEXAPRO PO SCH (08:38)
[2017-06-26] MEDS: ROCEPHIN 1 GM in SODIUM CHLORIDE 50 ML IV SCH (08:38)
[2017-06-26] MEDS: SOLU-MEDROL 125 MG IVP SCH ×2 (08:41→20:38)
[2017-06-26] MEDS: NYSTOP POWDER TP SCH ×3 (08:42→20:39)
--- NOTE | 2017-06-26 09:54 | HP ---
DATE OF SERVICE: 06/24/17 CHIEF COMPLAINT: Weakness, tiredness, cough and congestion. HISTORY OF PRESENT ILLNESS: This is a 72-year-old male who has been residing at the home. He has worsening of arthitis with pelvic pain and history of pelvic fracture. He has been coughing with congestion getting yelllow-green phlegm. He is unable to ambulate. He is urinating and having bowel movements in the trash can. Home Health Care called me and informed me that the patient has change in mental status today. At that time, the patient was sent to the emergency room for evaluation. The patient found to be lethargic. Responds to verbal stimuli and goes back to sleep. D. dimer was high. ABG showed pH 7.38, pc02 57.1, p02 49. CT scan of the chest showed pneumonia, elevated D. dimer so CT scan with PE protocol was done which did not show any pneumonia. Glucose was 72. Urine negative. At that time, the patient was admitted to the hospital for IV antibiotics, breathing treatments and IV hydration. REVIEW OF SYSTEMS: CONSTITUTIONAL: Positive for change in mental status, weakness, tiredness. No fever, no chills. HEENT: Normal. ENDOCRINE: No weight gain; no weight loss. CVS: Positive for shortness of breath. No chest pain. No PND, no orthopnea. No PND, no orthopnea. RESPIRATORY: Cough and congestion. No hemoptysis. GI: No nausea, no vomiting. No abdominal pain. No melena. : No hematuria. No polyuria. MUSCULOSKELETAL: No joint swelling. PSYCHIATRIC: Not anxious. No depression. No suicidal thoughts. No homicidal thoughts. SKIN: Intact, no open lesions. PAST MEDICAL HISTORY: CAD CHF COPD Obstructive sleep apnea Hypertension Dyslipidemia Osteoarthritis DJD spine Diabetes Depression Anxiety PAST SURGICAL HISTORY: Right ankle fusion 1985 Left elbow surgery 1985 Cataract surgery PERSONAL HISTORY: Lives at home, dependent upon ADLs FAMILY HISTORY: High blood pressure MEDICATIONS: (HOME) [place] Tylenol Lisinopril Lexapro Librium Duoneb Advair Lipitor Lantus Humulin R ALLERGIES: NKDA PHYSICAL EXAMINATION: V/S: BP 145/99, respiratory rate 18, heart rate 66, temperature 96.4, saturation 91 on 2L. GENERAL: Ill-appearing man lying in bed not in any distress. HEENT: Atraumatic, normocephalic. No scleral icterus. Pallor positive. Mucosa dry. NECK: Supple. No JVD, no bruit. No lymphadenopathy. No thyromegaly. HEART: S1, S2 normal. No murmur. No cyanosis or clubbing. No ascites. LUNGS: Decreased breath sounds with basilar crackles, mild expiratory wheeze. No rales or rhonchi. ABDOMEN: Soft, nontender. Bowel sounds are active. No CVA tenderness. No rigidity or guarding. EXTREMITIES: No cyanosis, clubbing or pedal edema. MUSCULOSKELETAL: Normal joints, no swelling. NEUROLOGIC: The patient is awake and alert, responds to verbal stimuli and is more awake and alert right now. SKIN: Intact; no open lesions. LYMPHATIC: No lymph nodes palpable. LABS: White count 6.30, hemoglobin 12.6, hematocrit 39.2, platelet count 276. D. dimer 3203. Sodium 131, potassium 4.4, chloride 87, bicarb 31, BUN 9, creatinine 0.70, glucose 72, BNP 146. ASSESSMENT: 1. COMMUNITY ACQUIRED PNEUMONIA, LEFT UPPER LOBE 2. DEHYDRATION 3. FAILURE TO THRIVE 4. HYPERTENSION 5. DIABETES 6. DYSLIPIDEMIA PLAN: 1. Admit the patient to the regular floor 2. CBC, CMP today and daily 3. Cardiac enzymes and troponin 4. Rocephin 1 gm daily 5. Azithromycin 500 mg p.o. daily 6. Duonebs 7. Solu-Medrol 8. Accu-Cheks with coverage 9. Will follow the patient in daily rounds TIME SPENT: MORE THAN 75 minutes MTDD
[2017-06-26] MEDS: HUMULIN R SUBCUT PRN (17:54)
[2017-06-26] MEDS: LOVENOX SUBCUT SCH (20:38)
[2017-06-26] MEDS ORDERED: INFUVITE ADULT IV ONE (23:46)
[2017-06-26] MEDS: FOLIC ACID 1 MG, INFUVITE ADULT 10 ML, THIAMINE 100 MG in SODIUM CHLORIDE 0.9%-KCL 20 M... IV SCH (23:51)
[2017-06-26] MEDS ORDERED: FOLIC ACID ONE (23:53)
[2017-06-26] MEDS ORDERED: THIAMINE ONE (23:54)
[2017-06-27] MEDS: DUONEB NEB SCH ×3 (05:15→21:20)
[2017-06-27] MEDS: PROTONIX PO SCH (05:37)
[2017-06-27] MEDS: CARAFATE PO SCH ×4 (05:37→20:33)
[2017-06-27 07:46] LABS: BASOPHILS % (AUTO) 0.1 % (0.0-3.0); EOSINOPHILS % (AUTO) 0.1 % (0.0-7.0); HEMATOCRIT 33.2 % (42.0-52.0); IMMATURE GRANULOCYTE % (AUTO) 0.6 % (0.0-5.0); LYMPHOCYTES # (AUTO) 1.1 K/uL (0.60-3.4); LYMPHOCYTES % (AUTO) 15.3 (10.0-50.0); MEAN CORPUSCULAR HEMOGLOBIN 27.4 pg (27.0-31.0); MEAN CORPUSCULAR HGB CONC 33.1 (31.8-35.4); MEAN CORPUSCULAR VOLUME 82.6 fl (80.0-94.0); MONOCYTES # (AUTO) 0.6 K/uL (0.4-2.0); MONOCYTES % (AUTO) 8.2 (0-10); NEUTROPHILS # (AUTO) 5.2 K/ul (2.0-6.9); NEUTROPHILS % (AUTO) 75.7; PLATELET COUNT 266 10^3/uL (140-440); RED BLOOD COUNT 4.02 10^6/ul (4.70-6.10); WHITE BLOOD COUNT 6.91 K/ul (4.2-10.2)
[2017-06-27 08:14] LABS: ANION GAP 12.5; BUN/CREATININE RATIO 18.91; CALCIUM 8.9 mg/dL (8.2-10.2); CREATININE 0.74 mg/dL (0.60-1.10); POTASSIUM 4.5 mmol/L (3.5-5.1)
[2017-06-27] MEDS: ZOFRAN 4 MG/2 ML IVP PRN (08:44)
[2017-06-27] MEDS: LEXAPRO PO SCH (08:45)
[2017-06-27] MEDS: ZITHROMAX PO SCH (08:45)
[2017-06-27] MEDS: ZESTRIL PO SCH (08:45)
[2017-06-27] MEDS: ROCEPHIN 1 GM in SODIUM CHLORIDE 50 ML IV SCH (08:45)
[2017-06-27] MEDS: SOLU-MEDROL 125 MG IVP SCH ×3 (08:45→20:34)
[2017-06-27] MEDS: LIPITOR PO SCH (08:45)
[2017-06-27] MEDS: NYSTOP POWDER TP SCH ×3 (08:46→20:35)
[2017-06-27] MEDS: ADVAIR 250-50 DISKUS IH SCH ×2 (08:50→20:33)
[2017-06-27] MEDS: LANTUS SUBCUT SCH ×2 (09:51→20:34)
--- NOTE | 2017-06-27 12:51 | CT ---
Exam: CT of the chest without intravenous contrast. Comparison: CT PE protocol performed 06/24/2017. Reason for exam: Follow-up pneumonia. FINDINGS: Similar appearing consolidations in the left upper lobe and lingula with air bronchograms. Bilateral pleural effusions, right greater than left with overlying atelectasis or pneumonia. Image interpretation is limited by the lack of intravenous contrast administration. The thyroid appears grossly unremarkable. The aorta appears prominent in size measuring 4.3 cm at the level of the arch. There is atherosclero tic disease within the aorta and distal arterial vasculature. Incidental note of bilateral breast densities. No pneumothorax. Degenerative disease is seen within the lumbosacral spine. Impression: 1. Similar appearing left upper lobe and lingular consolidation is consistent with pneumonia. 2. Bilateral pleural effusions of overlying pneumonia and atelectasis. 3. Similar appearing degenerative disease
[2017-06-27 12:57] LABS: IMMATURE RETIC FRACTION 14.4; RETICULOCYTE % 2.37 %
[2017-06-27 13:47] LABS: FERRITIN 125.13 ng/mL (21.81-274.66); FOLATE > 20.0 ng/mL (3.1-20.5); IRON 45 ug/dL (65-175); TOTAL IRON BINDING CAPACITY 228 ug/dL (240-450)
[2017-06-27] MEDS: LOVENOX SUBCUT SCH (20:33)
[2017-06-27] MEDS: HUMULIN R SUBCUT PRN (20:43)
[2017-06-28] MEDS: ZOFRAN 4 MG/2 ML IVP PRN (00:05)
[2017-06-28] MEDS ORDERED: THIAMINE ONE (02:07)
[2017-06-28] MEDS ORDERED: INFUVITE ADULT IV ONE (02:07)
[2017-06-28] MEDS ORDERED: FOLIC ACID ONE (02:07)
[2017-06-28] MEDS: FOLIC ACID 1 MG, INFUVITE ADULT 10 ML, THIAMINE 100 MG in SODIUM CHLORIDE 0.9%-KCL 20 M... IV SCH ×2 (02:16→17:10)
[2017-06-28] MEDS: DUONEB NEB SCH ×3 (05:14→19:59)
[2017-06-28] MEDS: CARAFATE PO SCH ×4 (05:40→20:51)
[2017-06-28] MEDS: PROTONIX PO SCH (05:40)
[2017-06-28] MEDS: SOLU-MEDROL 125 MG IVP SCH ×3 (05:41→21:53)
[2017-06-28] MEDS: HUMULIN R SUBCUT PRN ×2 (05:48→17:14)
[2017-06-28] MEDS: ZESTRIL PO SCH (08:10)
[2017-06-28] MEDS: ADVAIR 250-50 DISKUS IH SCH ×2 (08:10→20:55)
[2017-06-28] MEDS: ROCEPHIN 1 GM in SODIUM CHLORIDE 50 ML IV SCH (08:10)
[2017-06-28] MEDS: LIPITOR PO SCH (08:11)
[2017-06-28] MEDS: NYSTOP POWDER TP SCH ×3 (08:11→20:55)
[2017-06-28] MEDS: LANTUS SUBCUT SCH ×2 (08:11→20:52)
[2017-06-28] MEDS: LEXAPRO PO SCH (08:11)
[2017-06-28] MEDS ORDERED: MYLICON PO STA (13:28)
--- NOTE | 2017-06-28 16:23 | CT ---
EXAM: CT abdomen pelvis without contrast HISTORY: Abdominal pain COMPARISON: CT pelvis 01/11/[address] abdomen pelvis 07/19/2015 TECHNIQUE: Serial axial images of the abdomen pelvis were performed from the lung bases through the inferior pelvis without contrast. These were viewed in multiple planes. FINDINGS: The lung bases demonstrate consolidation in the inferior segment of the left upper lobe. There is consolidation in the right lower lobe. Small bilateral pleural effusions are present. Evaluation is limited due to lack of contrast. The liver is unremarkable. Gallbladder is not visuali zed. Adrenal glands are normal. The kidneys are unremarkable. The spleen is normal. The pancreas is unremarkable. The stomach is large and distended with gas and minimal debris. The small bowel in the abdomen pelvis is unremarkable. The colon is unremarkable. The appendix is n ormal. There are nonenlarged lymph nodes. There is no free air or free fluid. Urinary bladder is m ildly distended. The prostate is unremarkable. The osseous structures demonstrate degenerative dise ase of the hips and sacroiliac joints. There is unchanged multilevel degenerative disease of the lumb ar spine. IMPRESSION: 1. Extensive gas distension of the abdomen with no visualized obstruction or mass. Gastric outlet obs truction cannot be entirely excluded. 2. Consolidation in the inferior left upper lobe and the right lower lobe with adjacent small effusi ons may represent atelectasis versus pneumonia. 3. Osseous structures are unchanged from prior exam.
[2017-06-28] MEDS: MIRALAX PO SCH (17:22)
[2017-06-28] MEDS: LOVENOX SUBCUT SCH (20:51)
[2017-06-28] MEDS: LIBRIUM PO PRN (21:00)
[2017-06-28] MEDS: NORCO 7.5-325 PO PRN (21:01)
[2017-06-29] MEDS: SOLU-MEDROL 125 MG IVP SCH ×3 (05:17→20:07)
[2017-06-29] MEDS: ZOFRAN 4 MG/2 ML IVP PRN ×2 (05:17→19:38)
[2017-06-29] MEDS: DUONEB NEB SCH ×3 (05:18→19:30)
[2017-06-29] MEDS ORDERED: FOLIC ACID ONE (05:27)
[2017-06-29] MEDS ORDERED: INFUVITE ADULT IV ONE (05:28)
[2017-06-29] MEDS ORDERED: THIAMINE ONE (05:28)
[2017-06-29] MEDS: CARAFATE PO SCH ×4 (05:35→20:03)
[2017-06-29] MEDS: PROTONIX PO SCH (05:35)
[2017-06-29] MEDS: FOLIC ACID 1 MG, INFUVITE ADULT 10 ML, THIAMINE 100 MG in SODIUM CHLORIDE 0.9%-KCL 20 M... IV SCH ×2 (05:36→17:13)
[2017-06-29] MEDS: LEXAPRO PO SCH (08:23)
[2017-06-29] MEDS: ADVAIR 250-50 DISKUS IH SCH ×2 (08:23→20:02)
[2017-06-29] MEDS: LIPITOR PO SCH (08:23)
[2017-06-29] MEDS: ZESTRIL PO SCH (08:23)
[2017-06-29] MEDS: NYSTOP POWDER TP SCH ×3 (08:24→20:08)
[2017-06-29] MEDS: LANTUS SUBCUT SCH ×2 (08:24→20:04)
[2017-06-29] MEDS: MIRALAX PO SCH (08:24)
[2017-06-29] MEDS: ROCEPHIN 1 GM in SODIUM CHLORIDE 50 ML IV SCH (08:40)
[2017-06-29] MEDS: LOVENOX SUBCUT SCH (20:03)
[2017-06-29] MEDS: LIBRIUM PO PRN (20:05)
[2017-06-29] MEDS: NORCO 7.5-325 PO PRN (20:05)
[2017-06-30] MEDS ORDERED: INFUVITE ADULT IV ONE ×2 (01:54→23:56)
[2017-06-30] MEDS ORDERED: FOLIC ACID ONE ×2 (01:54→23:56)
[2017-06-30] MEDS ORDERED: THIAMINE ONE ×2 (01:55→23:56)
[2017-06-30] MEDS: FOLIC ACID 1 MG, INFUVITE ADULT 10 ML, THIAMINE 100 MG in SODIUM CHLORIDE 0.9%-KCL 20 M... IV SCH (02:08)
[2017-06-30] MEDS: SOLU-MEDROL 125 MG IVP SCH ×3 (04:52→20:32)
[2017-06-30] MEDS: DUONEB NEB SCH ×3 (05:28→19:48)
[2017-06-30] MEDS: CARAFATE PO SCH ×4 (05:38→20:32)
[2017-06-30] MEDS: PROTONIX PO SCH (05:38)
[2017-06-30 06:51] LABS: BASOPHILS % (AUTO) 0.2 % (0.0-3.0); HEMATOCRIT 38.2 % (42.0-52.0); HEMOGLOBIN 12.4 g/dl (14.0-18.0); IMMATURE GRANULOCYTE % (AUTO) 0.9 % (0.0-5.0); LYMPHOCYTES # (AUTO) 0.7 K/uL (0.60-3.4); LYMPHOCYTES % (AUTO) 11.7 (10.0-50.0); MEAN CORPUSCULAR HEMOGLOBIN 26.6 pg (27.0-31.0); MEAN CORPUSCULAR HGB CONC 32.5 (31.8-35.4); MONOCYTES # (AUTO) 0.3 K/uL (0.4-2.0); MONOCYTES % (AUTO) 5.8 (0-10); NEUTROPHILS # (AUTO) 4.5 K/ul (2.0-6.9); NEUTROPHILS % (AUTO) 81.4; PLATELET COUNT 245 10^3/uL (140-440); RED BLOOD COUNT 4.66 10^6/ul (4.70-6.10); WHITE BLOOD COUNT 5.55 K/ul (4.2-10.2)
[2017-06-30 07:17] LABS: ALBUMIN 2.7 g/dL (3.4-5.0); ALBUMIN/GLOBULIN RATIO 0.82; ANION GAP 10.2; BILIRUBIN,TOTAL 0.37 mg/dL (0.00-1.20); BUN/CREATININE RATIO 26.38; CALCIUM 8.7 mg/dL (8.2-10.2); CREATININE 0.72 mg/dL (0.60-1.10); POTASSIUM 4.2 mmol/L (3.5-5.1)
[2017-06-30] MEDS: MIRALAX PO SCH (08:03)
[2017-06-30] MEDS: ADVAIR 250-50 DISKUS IH SCH ×2 (08:03→20:32)
[2017-06-30] MEDS: ROCEPHIN 1 GM in SODIUM CHLORIDE 50 ML IV SCH (08:03)
[2017-06-30] MEDS: LANTUS SUBCUT SCH ×2 (08:03→20:33)
[2017-06-30] MEDS: LIPITOR PO SCH (08:04)
[2017-06-30] MEDS: LEXAPRO PO SCH (08:04)
[2017-06-30] MEDS: ZESTRIL PO SCH (08:04)
[2017-06-30] MEDS: NYSTOP POWDER TP SCH ×3 (08:09→20:32)
[2017-06-30] MEDS ORDERED: DULCOLAX RC STA (08:34)
[2017-06-30] MEDS ORDERED: CITRATE OF MAGNESIA PO STA (08:35)
[2017-06-30] MEDS: NORCO 7.5-325 PO PRN (11:22)
--- NOTE | 2017-06-30 11:55 | PN ---
DATE OF SERVICE: 06/25/17 SUBJECTIVE: The patient was admitted from the emergency room yesterday for pneumonia and failure to thrive. REVIEW OF SYSTEMS: CONSTITUTIONAL: No fever, no chills. Sleeping a lot. HEENT: Normal. ENDOCRINE: No weight gain, no weight loss. CVS: No angina symptoms. No CHF symptoms. No palpitations. No atypical chest pain for CAD. No shortness of breath. No PND, no orthopnea. RESPIRATORY: Cough and congestion, no hemoptysis. GI: No nausea, no vomiting. No abdominal pain. : No hematuria. No polyuria. MUSCULOSKELETAL:. No joint swelling. PSYCHIATRIC: Not anxious. No depression. No suicidal thoughts. No homicidal thoughts. SKIN: Intact. No rash. PHYSICAL EXAMINATION: V/S: Blood pressure 11/73, respiratory rate 16, heart rate 72, temperature 98.0 and saturation 96%. HEENT: Normocephalic, atraumatic. Mucosa dry. Pallor positive. No icterus. NECK: Supple. No JVD, no carotid bruit. No lymphadenopathy. LUNGS: Decreased and basilar crackles. No rales or rhonchi. HEART: S1, S2 normal. No S3. No murmur, gallop or regurgitation. ABDOMEN: Soft, nontender. Bowel sounds active. No rigidity. No rebound or guarding. No CVA tenderness. EXTREMITIES: No clubbing, cyanosis or pedal edema. MUSCULOSKELETAL: No joint swelling. NEUROLOGIC: Awake, alert, oriented times three. No focal deficit. LYMPHATIC: No lymph nodes palpable. SKIN: Intact. LABS: WBC 3.73, hgb 12.0, hct 37.2, plt count 278, sodium 132, potassium 4.6, chloride 93, bicarb 28, BUN 12, creatinine 0.73 and glucose 307. ASSESSMENT: 1. Community acquired pneumonia 2. Failure to thrive 3. Diabetes 4. Hypertension 5. Dyslipidemia PLAN: 1. Continue the Rocephin 2. Azithromycin 3. DUO NEBS 4. Solu-Medrol 5. Accu-checks with coverage 6. Will do HPA1c 7. Lovenox for the DVT prophylaxis TIME SPENT: More than 35 minutes MTDD
[2017-06-30] MEDS: HUMULIN R SUBCUT PRN (11:56)
[2017-06-30] MEDS: ZOFRAN 4 MG/2 ML IVP PRN (12:04)
--- NOTE | 2017-06-30 13:27 | PN ---
DATE OF SERVICE: 06/26/17 SUBJECTIVE: The patient was admitted with pneumonia. Planning to go to the [facility]. Thinks that he can not take care of himself anymore. Completely dependent upon the ADL's right now. HPA1c is 5.6. REVIEW OF SYSTEMS: CONSTITUTIONAL: No fever, no chills. HEENT: Normal. ENDOCRINE: No weight gain, no weight loss. CVS: No angina symptoms. No CHF symptoms. No palpitations. No atypical chest pain for CAD. No shortness of breath. No PND, no orthopnea. RESPIRATORY: Cough and congestion, no hemoptysis. GI: No nausea, no vomiting. No abdominal pain. : No hematuria. No polyuria. MUSCULOSKELETAL:. No joint swelling. PSYCHIATRIC: Not anxious. No depression. No suicidal thoughts. No homicidal thoughts. SKIN: Intact. No rash. PHYSICAL EXAMINATION: V/S: Blood pressure 138/70, respiratory rate 18, heart rate 67, temperature 98.6 with saturation 96 on 2 liters. HEENT: Normocephalic, atraumatic. Mucosa dry. Pallor positive. No icterus. NECK: Supple. No JVD, no carotid bruit. No lymphadenopathy. LUNGS: Decreased and basilar crackles. No rales or rhonchi. HEART: S1, S2 normal. No S3. No murmur, gallop or regurgitation. ABDOMEN: Soft, nontender. Bowel sounds active. No rigidity. No rebound or guarding. No CVA tenderness. EXTREMITIES: No clubbing, cyanosis or pedal edema. MUSCULOSKELETAL: No joint swelling. NEUROLOGIC: Awake, alert, oriented times three. No focal deficit. LYMPHATIC: No lymph nodes palpable. SKIN: Intact. LABS: WBC 7.91, hgb 11.0, hct 33.8, plt count 279, sodium 130, potassium 5.0, chloride 91, bicarb 32, BUN 13, creatinine 0.75. ASSESSMENT: 1. Community acquired pneumonia 2. Hyponatremia 3. Diabetes, A1c 5.6 4. Failure to thrive 5. Elevated D-dimer negative for the CT scan PLAN: 1. Continue the Lovenox for the DVT prophylaxis 2. Solu-Medrol 60mg Q 12 hours 3. Accu-checks with coverage 4. Daily I&O's 5. DUO NEBS 6. Will get CT scan of chest in the morning. TIME SPENT: More than 35 minutes MTDD
--- NOTE | 2017-06-30 13:39 | PN ---
DATE OF SERVICE: 06/28/17 SUBJECTIVE: The patient was admitted with failure to thrive and pneumonia. CT scan did show the pneumonia so the patient been taking the antibiotics and breathing treatment and feeling better. Complaining about some nausea and vomiting. Did not have any bowel movements since admission. REVIEW OF SYSTEMS: CONSTITUTIONAL: No fever, no chills. HEENT: Normal. ENDOCRINE: No weight gain, no weight loss. CVS: No angina symptoms. No CHF symptoms. No palpitations. No atypical chest pain for CAD. No shortness of breath. No PND, no orthopnea. RESPIRATORY: No cough, no hemoptysis. GI: No nausea, no vomiting. No abdominal pain. : No hematuria. No polyuria. MUSCULOSKELETAL:. No joint swelling. PSYCHIATRIC: Not anxious. No depression. No suicidal thoughts. No homicidal thoughts. SKIN: Intact. No rash. PHYSICAL EXAMINATION: V/S: Blood pressure 122/64, respiratory rate 16, heart rate 63, temperature 98.0 with saturation 95 on 2 liters. HEENT: Normocephalic, atraumatic. Mucosa dry. Pallor positive. NECK: Supple. No JVD, no carotid bruit. No lymphadenopathy. LUNGS: Decreased and basilar crackles. Clear to auscultation. No rales or rhonchi. HEART: S1, S2 normal. No S3. No murmur, gallop or regurgitation. ABDOMEN: Soft, nontender. Bowel sounds active. No rigidity. No rebound or guarding. No CVA tenderness. EXTREMITIES: No clubbing, cyanosis or pedal edema. MUSCULOSKELETAL: No joint swelling. NEUROLOGIC: Awake, alert, oriented times three. No focal deficit. LYMPHATIC: No lymph nodes palpable. SKIN: Intact. LABS: WBC 7.91, hgb 11.0, hct 33.8,. plt count 279, sodium 133, potassium 4.5, chloride 92, bicarb 33, BUN 15, creatinine 0.74 and glucose 103. ASSESSMENT: 1. Community acquired pneumonia bibasilar 2. Constipation rule out any obstruct 3. DJD spine 4. Osteoarthritis 5. Diabetes 6. Hypertension 7. Dyslipidemia 8. failure to thrive PLAN: 1. Will get CT of abdomen and pelvis 2. Will start the Miralax 3. IV fluids 4. Continue Rocephin and breathing treatment 5. Daily I&O's TIME SPENT: More than 35 minutes MTDD
--- NOTE | 2017-06-30 13:45 | PN ---
DATE OF SERVICE: 06/29/17 SUBJECTIVE: The patient was admitted with pneumonia, bilateral. CT abdomen and pelvis did not show any acute findings. Constipation but no obstruction. REVIEW OF SYSTEMS: CONSTITUTIONAL: No fever, no chills. HEENT: Normal. ENDOCRINE: No weight gain, no weight loss. CVS: No angina symptoms. No CHF symptoms. No palpitations. No atypical chest pain for CAD. No shortness of breath. No PND, no orthopnea. RESPIRATORY: No cough, no hemoptysis. GI: Nausea is better today, no vomiting. No abdominal pain. : No hematuria. No polyuria. MUSCULOSKELETAL:. No joint swelling. PSYCHIATRIC: Not anxious. No depression. No suicidal thoughts. No homicidal thoughts. SKIN: Intact. No rash. PHYSICAL EXAMINATION: V/S: Blood pressure 122/64, respiratory rate 16, heart rate 63, temperature 98.0 with saturation 95 on 2 liters. HEENT: Normocephalic, atraumatic. Mucosa dry. NECK: Supple. No JVD, no carotid bruit. No lymphadenopathy. LUNGS:Decreased and clear to auscultation. No rales or rhonchi. HEART: S1, S2 normal. No S3. No murmur, gallop or regurgitation. ABDOMEN: Soft, nontender. Bowel sounds active. No rigidity. No rebound or guarding. No CVA tenderness. EXTREMITIES: No clubbing, cyanosis or pedal edema. MUSCULOSKELETAL: No joint swelling. NEUROLOGIC: Awake, alert, oriented times three. No focal deficit. LYMPHATIC: No lymph nodes palpable. SKIN: Intact. LABS: Sodium 133, potassium 4.5, chloride 92, bicarb 33, BUN 14, creatinine 0.74, glucose 103, WBC 6.91, hgb 11.0, hct 33.2 and plt count 266. ASSESSMENT: 1. Bilateral pneumonia 2. Failure to thrive 3. Constipation/ Obstipation 4. Hypertension 5. Dyslipidemia 6. Osteoarthritis 7. DJD spine 8. Anemia PLAN: 1. Will get CBC and CMP in the morning 2. Continue the Lovenox for the DVT prophylaxis 3. Rocephin 4. IV fluids 5. Breathing treatments TIME SPENT: More than 35 minutes MTDD
[2017-06-30] MEDS: LOVENOX SUBCUT SCH (20:32)
[2017-07-01] MEDS: FOLIC ACID 1 MG, INFUVITE ADULT 10 ML, THIAMINE 100 MG in SODIUM CHLORIDE 0.9%-KCL 20 M... IV SCH (00:19)
[2017-07-01] MEDS: NORCO 7.5-325 PO PRN (01:12)
[2017-07-01 05:18] VITALS: TEMP 97.8
[2017-07-01] MEDS: DUONEB NEB SCH ×2 (05:28→14:25)
[2017-07-01] MEDS: PROTONIX PO SCH (05:38)
[2017-07-01] MEDS: CARAFATE PO SCH ×2 (05:38→11:34)
[2017-07-01] MEDS: SOLU-MEDROL 125 MG IVP SCH ×2 (05:38→13:33)
[2017-07-01] MEDS: ADVAIR 250-50 DISKUS IH SCH (09:53)
[2017-07-01] MEDS: ROCEPHIN 1 GM in SODIUM CHLORIDE 50 ML IV SCH (09:54)
[2017-07-01] MEDS: LEXAPRO PO SCH (09:55)
[2017-07-01] MEDS: LIPITOR PO SCH (09:55)
[2017-07-01] MEDS: LANTUS SUBCUT SCH (09:55)
[2017-07-01] MEDS: MIRALAX PO SCH (09:55)
[2017-07-01] MEDS: ZESTRIL PO SCH (09:55)
[2017-07-01] MEDS: NYSTOP POWDER TP SCH (09:56)
--- NOTE | 2017-07-01 11:40 | CM.DICTOOL ---
ADMISSION: 06/24/17 15:03 DISCHARGE: July 01, 2017 DATE OF SERVICE: 07/01/17 FINAL DIAGNOSIS Pneumonia Dehydration COPD Hypertension Diabetes Mellitus, type 2 Dyslipidemia CAD CHF GERD Sleep Apnea Osteoarthritis Bilateral Cataract Extraction, 2009 Right Ankle Fusion, 1985 Left Elbow Surgery, 1984 Cholecystectomy, 2009 LAST VITALS Temp Pulse Resp BP Pulse Ox 97.8 F 56 L 16 130/71 98 07/01/17 05:18 07/01/17 05:18 07/01/17 05:18 07/01/17 05:18 07/01/17 05:18 ACTIVE HOME MEDICATIONS Acetaminophen/Hydrocodone Bitart ([place] 7.5-325) 1 tab PO Q12HR PRN PRN Reason: pain Last Admin: 07/01/17 01:12 Dose: 1 tab Albuterol/Ipratropium (Duoneb) 1 vial NEB RTBID [facility] Last Admin: 07/01/17 05:28 Dose: 1 vial Atorvastatin Calcium (Lipitor) 10 mg PO DAILY [facility] Last Admin: 07/01/17 09:55 Dose: 10 mg Chlordiazepoxide HCl (Librium) 25 mg PO Q12HR PRN PRN Reason: Anxiety Last Admin: 06/29/17 20:05 Dose: 25 mg Escitalopram Oxalate (Lexapro) 20 mg PO DAILY [facility] Last Admin: 07/01/17 09:55 Dose: 20 mg Insulin Glargine (Lantus) 25 unit SUBCUT BID [facility] Last Admin: 07/01/17 09:55 Dose: 25 unit Insulin Human Regular (Humulin R) 0 - 20 unit SUBCUT ACHS PRN; Protocol PRN Reason: HYPERGLYCEMIA Last Admin: 06/30/17 11:56 Dose: 3 unit Lisinopril (Zestril) 10 mg PO DAILY [facility] Last Admin: 07/01/17 09:55 Dose: 10 mg Fluticasone/Salmeterol (Advair 250-50 Diskus) 1 puff IH BID [facility] Last Admin: 07/01/17 09:53 Dose: 1 puff ALLERGIES No Known Allergies Allergy (Verified 06/24/17 11:50) NEW PRESCRIPTIONS: Zofran 4 mg PO every 6 hours prn nausea Protonix 40 mg daily Carafate 1 gm AC and HS Miralax 17 Grams daily Keflex 500 mg BID for 5 days SMOKING: No smoking DISEASE SPECIFIC EDUCATION: Medications Nebulizer treatments LAB REVIEW: 06/30/17 06:45 06/30/17 06:45 PLAN: Discharge to [facility] Diet: Consistent Carbohydrates Activity: Encourage out of bed several times daily Ellimination: urinal/incontinence Nasal oxygen at 2 liters per cannula Nebulizer treatments BID with Duonebs Physical Therapy Consultation Occupational Therapy Consultation Incontinence Care prn Decubitus precautions (Stage 1 to Left Buttock) CBC, CMP in one week, then monthly Accu-checks AC and HS Vital Signs daily for one week, then weekly Dr. Samson to see on custodial rounds in 7-10 days. Mr. Williamson is alert and oriented x 3. He is agreeable to discharge plans to [facility]. He is partially dependent for ADL's requiring assistance with lower body bathing, dressing and transfers. He is non- ambulatory and reports he is able to transfer only. He feeds himself and is able to assist with turning and repositioning. He uses the urinal for voiding. A Stage 1 decubitus ulcer is noted to the left buttock, this is open to air. He needs encouragement to position off the left buttock. Cesar Samson MD
[2017-07-01] MEDS: HUMULIN R SUBCUT PRN (11:49)
[2017-07-01 12:17] VITALS: BP 137/94
--- NOTE | 2017-07-02 10:18 | PN ---
DATE OF SERVICE: 06/27/17 SUBJECTIVE: The patient was admitted with the bilateral pneumonia and failure to thrive. REVIEW OF SYSTEMS: CONSTITUTIONAL: No fever, no chills. HEENT: Normal. ENDOCRINE: No weight gain, no weight loss. CVS: No angina symptoms. No CHF symptoms. No palpitations. No atypical chest pain for CAD. No shortness of breath. No PND, no orthopnea. RESPIRATORY: No cough, no hemoptysis. GI: Nausea and vomiting. Abdominal pain. : No hematuria. No polyuria. MUSCULOSKELETAL:. No joint swelling. PSYCHIATRIC: Not anxious. No depression. No suicidal thoughts. No homicidal thoughts. SKIN: Intact. No rash. PHYSICAL EXAMINATION: V/S: Blood pressure 168/74, respiratory rate 13, heart rate 68, temperature 98.3 with saturation 93%. HEENT: Normocephalic, atraumatic. Mucosa dry. Pallor positive. NECK: Supple. No JVD, no carotid bruit. No lymphadenopathy. LUNGS: Decreased with basilar crackles. Clear to auscultation. No rales or rhonchi. HEART: S1, S2 normal. No S3. No murmur, gallop or regurgitation. ABDOMEN: Soft, Epigastric discomfort. Bowel sounds active. No rigidity. No rebound or guarding. No CVA tenderness. EXTREMITIES: No clubbing, cyanosis or pedal edema. MUSCULOSKELETAL: No joint swelling. NEUROLOGIC: Awake, alert, oriented times three. No focal deficit. LYMPHATIC: No lymph nodes palpable. SKIN: Intact. LABS: WBC 6.91, hgb 11.0, hct 33.2, plt count 266, sodium 133, potassium 4.5, chloride 92, bicarb 33, BUN 14, creatinine 0.74, glucose 103 ASSESSMENT: 1. Bilateral pneumonia 2. Chronic nausea and vomiting probably from the peptic ulcer disease 3. Constipation 4. DJD spine 5. Osteoarthritis 6. Failure to thrive 7. Hyponatremia PLAN: 1. Continue Zofran Q 6-8 hours 2. Rocephin 3. DUO NEBS 4. Daily I&O's Will follow the patient in daily rounds. TIME SPENT: More than 30 minutes MTDD
--- NOTE | 2017-07-02 14:43 | DS ---
DATE OF SERVICE: 07/01/17 FINAL DIAGNOSIS: 1. Pneumonia 2. Dehydration 3. COPD 4. Hypertension 5. Diabetes Mellitus, type 2 6. Dyslipidemia 7. CAD 8. CHF 9. GERD 10.Sleep apnea 11.Osteoarthritis 12.Bilateral cataract extraction, 2008 13.Right ankle fusion, 1984 14.Left elbow surgery, 1984 15.Cholecystectomy, 2009 LAST VITALS: Temperature 97.8, pulse 56, respiratory rate 16, blood pressure 130/71 and pulse ox 98%. DISCHARGE INSTRUCTIONS: Discharge to [facility]. Elimination: Urinal/incontinence. Nasal oxygen at 2 liers per cannula. Nebulizer treatments twice a day for DUO NEBS. Physical therapy consultation. Occupational therapy consultation. Incontinence care PRN. Decubitus precautions (stage 1 to left buttock). CBC, CMP in one week, then monthly. Accu-checks AC and HS. Vital signs daily for one week, then weekly. Dr. Samson to see one long-term rounds in 7-10 days. MEDICATIONS AT DISCHARGE: [place] 7.8-325 Q 12 hours PRN DUO NEBS 1 vial NEB RT twice a day Lipitor 10mg PO daily Librium 25mg PO Q 12 hours PRN Lexapro 20mg PO daily Lantus 25 unit SUBCUT twice a day Humulin R 0-20 unit subcut ACHS PRN Zestril 10mg PO daily Advair 250-50 one puff IH twice a day DEREK ALLERGIES: No known allergies NEW PRESCRIPTIONS: Zofran 4mg PO every 6 hours PRN nausea Protonix 40mg daily Carafate 1 gram AC and HS Miralax 17 grams daily Keflex 500mg twice a day for 5 days. DIET INSTRUCTIONS: Consistent Carbohydrates ACTIVITY: Encourage out of bed several times daily SMOKING: No smoking DISEASE SPECIFIC EDUCATION: Medications Nebulizer treatment HOSPITAL COURSE: The patient was at home and the Home Health Care nurses were calling us and saying that the patient isn't feeling good, cough and congested not by himself. At that time the patient was sent to the emergency room. In process of evaluation CT chest was done which showed the pneumonia. CT head no stroke. At that time the patient was admitted to the hospital and started on the IV antibiotics and breathing treatments. Elevated d-dimer was there 3,203 and ABG showed pH 7.388, pCO2 51.1, pO2 [address] scan with the IV contrast was done and there was no pulmonary embolism. With the given IV antibiotics and breathing treatment the patient was more awake and alert. Started feeling better but started complaining of abdominal pain, nausea and vomiting. The patient was given Zofran. Repeat CT chest again and showed the bilateral basilar pneumonia. The patient was continued to be admitted and given IV antibiotics Zofran. Still Zofran was helping the patient and getting better but again coming back. At that time CT of abdomen and pelvis was done which did show extensive gas distention of the abdomen no obstruction, consolidation in the inferior left lower lobe and the right lower lobe with adjacent small effusions may represent atelectasis versus pneumonia. The patient was then continue Zofran and the patient did not have bowel movement for 3-4 days so given Miralax. The patient almost had a moderate size stools x2 days and then started feeling better with the abdomen. At that time the patient was planned to discharge to the long-term for the physical therapy and occupational therapy. He was agreeable and the patient being evaluated and sent to the long-term. TIME SPENT: MORE THAN 70 MINUTES ESME
== END 2017-07-01 14:45 | DRG 194 ==
LOC: ED 11:42 → MEDSURG A 15:03
PROVIDERS: ADMIT Emergency Medicine; ATTEND Emergency Medicine
DX: J18.9 Pneumonia, unspecified organism (principal); J91.8 Pleural effusion in other conditions classified elsewhere; E87.1 Hypo-osmolality and hyponatremia; R41.82 Altered mental status, unspecified; I50.9 Heart failure, unspecified; I10 Essential (primary) hypertension; E86.0 Dehydration; J44.9 Chronic obstructive pulmonary disease, unspecified; E11.9 Type 2 diabetes mellitus without complications; R62.7 Adult failure to thrive; L89.321 Pressure ulcer of left buttock, stage 1; R14.0 Abdominal distension (gaseous); R79.1 Abnormal coagulation profile; E78.5 Hyperlipidemia, unspecified; I25.10 Atherosclerotic heart disease of native coronary artery without angina pectoris; K21.9 Gastro-esophageal reflux disease without esophagitis; D64.9 Anemia, unspecified; K59.00 Constipation, unspecified; K27.7 Chronic peptic ulcer, site unspecified, without hemorrhage or perforation; M19.90 Unspecified osteoarthritis, unspecified site; G47.30 Sleep apnea, unspecified; F17.200 Nicotine dependence, unspecified, uncomplicated; R05 Cough; M62.81 Muscle weakness (generalized); R09.89 Other specified symptoms and signs involving the circulatory and respiratory systems; Z79.899 Other long term (current) drug therapy; Z79.4 Long term (current) use of insulin; Z98.890 Other specified postprocedural states; Z90.49 Acquired absence of other specified parts of digestive tract; Z87.81 Personal history of (healed) traumatic fracture
CPT/HCPCS: 36415; 80048; 80053; 81001; 82550; 82607; 82728; 82746; 82803; 82962; 83036; 83540; 83550; 83605; 83880; 84145; 84466; 84484; 85025; 85045; 85379; 87040; 93005; 93010; 94640; 96361; 96365; 99284

== ENCOUNTER 2019-01-06 11:41 | Outpatient (CLI) | END 2019-01-06 11:42 | disposition home or self-care (01) | LOC: WOUND 11:41 | PROVIDERS: ATTEND Nurse Practitioner Family | DX: L89.322 Pressure ulcer of left buttock, stage 2 (principal); L89.312 Pressure ulcer of right buttock, stage 2; I10 Essential (primary) hypertension; E11.21 Type 2 diabetes mellitus with diabetic nephropathy; I50.9 Heart failure, unspecified ==

== ENCOUNTER 2019-03-19 17:05 | Outpatient (CLI) | payer OTHER | END 2019-03-19 17:06 | disposition home or self-care (01) | LOC: NONPT 17:05 | PROVIDERS: ATTEND Family Medicine | DX: L98.9 Disorder of the skin and subcutaneous tissue, unspecified (principal) | CPT/HCPCS: 87070; 87186 ==

== ENCOUNTER 2020-04-11 11:44 | Inpatient (IN) ==
[2020-04-11 12:22] LABS: ABG PCO2 43.4 mmHg (35-45)
[2020-04-11 12:23] LABS: ABG BASE EXCESS -1 (-2.0-2.0); ABG HCO3 24.5 (22.0-26.0); ABG TCO2 26 (22.0-28.0)
[2020-04-11] MEDS ORDERED: SODIUM CHLORIDE 1,000 ML IV STA ×2 (12:33→13:20)
--- NOTE | 2020-04-11 12:45 | ED.PDOC ---
General ED Provider: Dr. GARTH PADILLA Chief Complaint: Diarrhea Stated Complaint: Diarrhea, nausea and vomiting. Feeling weak. Hypotension and brought to ER for evaluation ; Has abdominal cramping. BP 67/ in the ambulance. Upon arrival her patient note to be pale but is A and OX3. Time Seen by Physician: 12:20 Mode of Arrival: Ambulance Information Source: Patient, Snf and EMT Primary Care Provider: ETTA ABRAHAM MD Seen Within Last 72 Hours for Same Complaint By: ED Nursing and Triage Documentation Reviewed and Agree: No Does patient meet sepsis criteria?: No System Inflammatory Response Syndrome: Not Applicable Sepsis Protocol: For patient's 13 years and over: Temp is 96.8 and below OR 101 and greater Pulse >90 BPM Resp >20/minute Acutely Altered Mental Status Are patient's symptoms suggestive of a new infection, such as: -Pneumonia -Skin, Soft Tissue -Endocarditis -UTI -Bone, Joint Infection -Implantable Device -Acute Abdominal Infection -Wound Infection -Meningitis -Blood Stream Catheter Infection -Unknown GI Complaint Exam Vomiting/Diarrhea Complaint/Exam Onset/Duration: yesterday Symptoms Are: Resolved Episodes of Vomiting over last 24 Hours: 2 Episodes of Diarrhea Over Last 24 Hours: 3 Initial Severity: Moderate Current Severity: Moderate Character of Vomiting: Reports Bilious Character of Diarrhea: Reports Watery Aggravating: Reports Liquids Associated Signs and Symptoms: Reports Dizziness, Light-headedness and Abdominal pain Related History: Reports Similar episode Abdominal Findings: Present None Kussmaul Respirations Present: No Differential Diagnoses: Dehydration, Viral Gastroenteritis, Pancreatitis and UTI Review of Systems Review Of Systems Constitutional: Reports No symptoms Eyes: Reports No symptoms Ears, Nose, Mouth, Throat: Reports No symptoms Respiratory: Reports No symptoms Cardiac: Reports No symptoms GI: Reports No symptoms : Reports No symptoms Musculoskeletal: Reports No symptoms Skin: Reports No symptoms Neurological: Reports No symptoms Endocrine: Reports No symptoms Hematologic/Lymphatic: Reports No symptoms All Other Systems: Reviewed and Negative [facility] Medical History Anxiety Atherosclerosis CHF (congestive heart failure) COPD (chronic obstructive pulmonary disease) Dementia Depression Diabetes Dyslipidemia Fall GERD (gastroesophageal reflux disease) Hearing problem Hypertension Insomnia Insulin dependent type 1 diabetes mellitus Osteoarthritis Sleep apnea Family History (Updated 04/11/20 @ 16:55 by NICK METZGER RN) Other No known health problems Social History (Updated 04/11/20 @ 16:57 by NICK METZGER RN) Smoking and tobacco status: Former smoker Alcohol intake: former Physical Exam Physical Exam Appearance: Reports Ill-appearing and Obese Ill-appearing: Mild Pain Distress: Mild Eyes: Reports TIM, EOMI and Conjunctiva clear ENT: Reports Ears normal, Nose normal, Oropharynx normal and TMs Occluded Neck: Supple Respiratory: Reports Airway patent, Breath sounds clear, Breath sounds equal and Breath sounds diminished Cardiovascular: Reports RRR, Pulses normal, No rub and No murmur GI/: Reports Soft, Nontender, No masses and Bowel sounds hypoactive Musculoskeletal: Reports Normal strength Skin: Reports Warm and Pale Neurological: Reports Sensation intact and Motor intact Psychiatric: Reports Affect appropriate and Mood appropriate Interpretation Radiology Interpretation Radiology Interpretation By: Radiologist Exam Interpreted: CT Scan (CHest:No acute cardiopulmonary process. 2. Stable chronic complex right pleural effusion and adjacent rounded atelectasis. Calcified pleural plaquing. Findings likely due to previous asbestos exposure. ) Radiology Interpretation By: Radiologist Exam Interpreted: CT Scan (Circumferential wall thickening of the rectosigmoid colon and to a lesser degree the descending colon, consistent with colitis. Broad differential considerations include infectious, inflammatory or vascular etiologies. 2. No urinary or bowel obstruction. 3. Circumferential wall thickening of the ) Physician Notification Case Discussed Physician Notified: Dr Abraham-Discussed Case; Accepts for admission Time of Notification: 15:55 Critical Care Note Critical Care Note Total Time (mins): 60 Course Course Hematology/Chemistry: 04/14/20 05:25 04/14/20 05:25 Orders, Labs, Meds: Lab Review 04/11/20 04/11/20 04/11/20 12:18 12:20 12:40 WBC RBC Hgb Hct MCV MCH MCHC RDW Coeff of Scott Plt Count Immature Gran % (Auto) Neut % (Auto) Lymph % (Auto) [place] % (Auto) Eos % (Auto) Baso % (Auto) Neut # (Auto) Lymph # (Auto) [place] # (Auto) Eos # (Auto) Baso # (Auto) Immature Gran # (Auto) Puncture Site Rrad O2 Saturation 89.0 L ABG pH 7.360 ABG pCO2 43.4 ABG pO2 60.0 L ABG HCO3 24.5 ABG Total CO2 26 ABG Base Excess -1 Chase Test + FiO2 % 21.0 Sodium Potassium Chloride Carbon Dioxide Anion Gap BUN Creatinine Estimated GFR (MDRD) BUN/Creatinine Ratio Glucose Lactic Acid Calcium Total Bilirubin AST ALT Alkaline Phosphatase Troponin I NT-Pro-B Natriuret Pep 761.000 H Total Protein Albumin Globulin Albumin/Globulin Ratio Lipase 29.8 Procalcitonin Stl Occult Blood (IFOB) Stool Occult Blood #2 Stool Occult Blood #3 04/11/20 04/11/20 04/11/20 12:48 12:48 12:48 WBC 18.63 H RBC 4.30 L Hgb 11.9 L Hct 36.7 L MCV 85.3 MCH 27.7 MCHC 32.4 RDW Coeff of Scott 15.9 H Plt Count 247 Immature Gran % (Auto) 0.9 Neut % (Auto) 87.2 H Lymph % (Auto) 5.3 L [place] % (Auto) 6.2 Eos % (Auto) 0.1 Baso % (Auto) 0.3 Neut # (Auto) 16.3 H Lymph # (Auto) 1.0 [place] # (Auto) 1.2 Eos # (Auto) 0.0 Baso # (Auto) 0.1 Immature Gran # (Auto) 0.2 Puncture Site O2 Saturation ABG pH ABG pCO2 ABG pO2 ABG HCO3 ABG Total CO2 ABG Base Excess Chase Test FiO2 % Sodium 129.6 L Potassium 4.37 Chloride 96.0 L Carbon Dioxide 24.7 Anion Gap 13.27 BUN 26.6 H Creatinine 1.02 Estimated GFR (MDRD) 71.00 BUN/Creatinine Ratio 26.07 Glucose 226.3 H Lactic Acid Calcium 8.91 Total Bilirubin 0.79 AST 36.6 ALT 20.8 Alkaline Phosphatase 118.3 Troponin I < 0.012 NT-Pro-B Natriuret Pep Total Protein 7.01 Albumin 3.51 Globulin 3.50 Albumin/Globulin Ratio 1.00 Lipase Procalcitonin 0.12 Stl Occult Blood (IFOB) Stool Occult Blood #2 Stool Occult Blood #3 04/11/20 04/11/20 12:48 13:20 WBC RBC Hgb Hct MCV MCH MCHC RDW Coeff of Scott Plt Count Immature Gran % (Auto) Neut % (Auto) Lymph % (Auto) [place] % (Auto) Eos % (Auto) Baso % (Auto) Neut # (Auto) Lymph # (Auto) [place] # (Auto) Eos # (Auto) Baso # (Auto) Immature Gran # (Auto) Puncture Site O2 Saturation ABG pH ABG pCO2 ABG pO2 ABG HCO3 ABG Total CO2 ABG Base Excess Chase Test FiO2 % Sodium Potassium Chloride Carbon Dioxide Anion Gap BUN Creatinine Estimated GFR (MDRD) BUN/Creatinine Ratio Glucose Lactic Acid 0.69 L Calcium Total Bilirubin AST ALT Alkaline Phosphatase Troponin I NT-Pro-B Natriuret Pep Total Protein Albumin Globulin Albumin/Globulin Ratio Lipase Procalcitonin Stl Occult Blood (IFOB) Positive Stool Occult Blood #2 No specimen received Stool Occult Blood #3 No specimen received Orders Category Date Time Status ABG DRAW REQUEST Stat CARDIO 04/11/20 12:18 Completed EKG-(ED ONLY) Stat CARDIO 04/11/20 12:19 Completed ABG Stat LAB 04/11/20 12:18 Completed BLOOD CULTURE (ED ONLY) Stat LAB 04/11/20 15:17 Results CBC W/ AUTO DIFF Stat LAB 04/11/20 12:48 Completed CMP [COMPREHENSIVE METABOLIC PANEL] Stat LAB 04/11/20 12:48 Completed LACTIC ACID Stat LAB 04/11/20 12:48 Completed LIPASE Stat LAB 04/11/20 12:20 Completed NT-PROBNP Stat LAB 04/11/20 12:40 Completed OCCULT BLOOD, STOOL Stat LAB 04/11/20 13:20 Completed PROCALCITONIN Stat LAB 04/11/20 12:48 Completed TROPONIN I Stat LAB 04/11/20 12:48 Completed UA [URINALYSIS C & S IF INDICATED] Stat LAB 04/11/20 16:20 Completed Ceftriaxone/D5w 1 gm Premix [Rocephin 1 gm/50 ml D5w] MEDS 04/11/20 15:40 Dis continued 1 gm in 50 ml IV ONCE Ciprofloxacin/D5w [Cipro 400 mg/200 ml D5w] MEDS 04/11/20 15:37 Discontinued 400 mg in 200 ml IV ONCE Metronidazole [Flagyl] MEDS 04/11/20 15:26 Discontinued 250 mg PO ONCE STA Sodium Chloride 0.9% [Sodium Chloride] 1,000 ml MEDS 04/11/20 12:[address] ABDOMEN/PELVIS WO CONTRAST Stat RADS 04/11/20 13:[address] CHEST W/O CONTRAST Stat RADS 04/11/20 13:56 Completed Medications Discontinued Medications Generic Name Dose Route Start Last Admin Trade Name Freq PRN Reason Stop Dose Admin Hydrocodone Bitart/Acetaminophen 1 tab 04/11/20 21:00 04/14/20 15:28 Hydrocodone Bit/Acetaminophen 7.5/325 Mg Tablet PO 1 tab TID DEREK Administration Aspirin 81 mg 04/12/20 08:30 04/14/20 09:10 Aspirin 81 Mg Tab.Chew PO 81 mg DAILYWM DEREK Administration Atorvastatin Calcium 10 mg 04/12/20 09:00 04/14/20 09:10 Atorvastatin Calcium 10 Mg Tablet PO 10 mg DAILY DEREK Administration Budesonide/Formoterol Fumarate 2 puff 04/12/20 09:00 04/14/20 09:12 Budesonide/Formoterol Fumarate 160/4.5 Mcg Inhaler IH 2 puff BID DEREK Administration Ciprofloxacin 500 mg 04/11/20 21:00 04/12/20 05:57 Ciprofloxacin Hcl 500 Mg Tablet PO 04/14/20 20:59 500 mg BIDCIPRO DEREK Administration Ferrous Sulfate 324 mg 04/11/20 21:00 04/14/20 09:10 Ferrous Sulfate 324 Mg Tablet. PO 324 mg BID DEREK Administration Sodium Chloride 1,000 mls @ 1,000 mls/hr 04/11/20 12:33 04/11/20 12:36 Sodium Chloride IV 04/11/20 13:32 1,000 mls/hr BOLUS STA Administration Ciprofloxacin/Dextrose 400 mg in 200 mls @ 200 mls/hr 04/11/20 15:37 04/11/20 18:32 Cipro 400 Mg/200 Ml D5w IV 04/11/20 16:36 200 mls/hr ONCE STA Administration CEFTRIAXONE/D5W 1 GM PREMIX 1 gm in 50 mls @ 75 mls/hr 04/11/20 15:40 04/11/20 15:43 Rocephin 1 Gm/50 Ml D5w IV 04/11/20 16:19 75 mls/hr ONCE STA Administration Sodium Chloride 1,000 mls @ 100 mls/hr 04/11/20 22:30 04/11/20 22:22 Sodium Chloride IV 100 mls/hr .Q10H DEREK Administration Sodium Chloride 500 mls @ 1,000 mls/hr 04/12/20 07:30 04/12/20 07:54 Sodium Chloride IV 04/12/20 07:59 1,000 mls/hr BOLUS ONE Administration Levofloxacin/Dextrose 500 mg in 100 mls @ 100 mls/hr 04/12/20 08:00 04/14/20 09:09 Levaquin 500 Mg/100 Ml D5w IV 04/15/20 07:59 100 mls/hr DAILY DEREK Administration Sodium Chloride 1,000 mls @ 120 mls/hr 04/12/20 07:51 04/13/20 09:36 Sodium Chloride IV Not Given .Q8H20M DEREK Sodium Chloride 500 mls @ 500 mls/hr 04/12/20 10:42 04/12/20 13:41 Sodium Chloride IV 04/12/20 11:41 Not Given BOLUS STA Sodium Chloride 1,000 mls @ 115 mls/hr 04/12/20 17:42 04/14/20 16:59 Sodium Chloride IV Not Given .Q8H42M DEREK Sodium Chloride 500 mls @ 500 mls/hr 04/13/20 08:10 04/13/20 09:35 Sodium Chloride IV 04/13/20 09:09 Not Given BOLUS STA Sodium Chloride 500 mls @ 500 mls/hr 04/13/20 08:18 04/13/20 09:34 Sodium Chloride IV 04/13/20 09:09 500 mls/hr BOLUS STA Administration Insulin Glargine 25 unit 04/11/20 21:00 04/13/20 20:31 Insulin Glargine,Hum.Rec.Anlog 100 Units/Ml SUBCUT 25 unit BEDTIME DEREK Administration Lidocaine HCl 10 ml 04/12/20 13:09 04/12/20 13:57 Lidocaine 10 Ml Jel.Pf.Rip (Urojet) MUCOUSMEMB 04/12/20 13:10 10 ml ONCE STA Administration Linagliptin 5 mg 04/12/20 09:00 04/14/20 09:10 Linagliptin 5 Mg Tablet PO 5 mg DAILY DEREK Administration Lorazepam 0.5 mg 04/11/20 21:00 04/14/20 09:10 Lorazepam 0.5 Mg Tablet PO 0.5 mg BID DEREK Administration Metronidazole 250 mg 04/11/20 15:26 04/11/20 15:41 Metronidazole 250 Mg Tablet PO 04/11/20 15:27 250 mg ONCE STA Administration Metronidazole 500 mg 04/11/20 21:00 04/14/20 12:05 Metronidazole 250 Mg Tablet PO 04/14/20 20:59 500 mg Q8HR DEREK Administration Non-Formulary Medication 10 mg 04/12/20 09:00 04/14/20 09:11 Vortioxetine PO Not Given DAILY DEREK Non-Formulary Medication 1 inh 04/12/20 09:00 04/12/20 08:32 Fluticasone Furoate-Vilanterol [Breo Ellipta] IH Not Given DAILY DEREK Nystatin 1 applic 04/12/20 21:00 04/14/20 09:11 Nystatin 15 Gm Powder TP 1 applic BID DEREK Administration Omeprazole 20 mg 04/12/20 07:30 04/14/20 05:54 Omeprazole 20 Mg Capsule.Dr PO 20 mg QDAC DEREK Administration Ondansetron HCl 4 mg 04/11/20 18:58 04/12/20 07:58 Ondansetron Hcl/Pf 4 Mg/2 Ml Sdv IVP 4 mg Q6H PRN Administration Nausea / Vomiting Promethazine HCl 25 mg 04/11/20 20:15 Promethazine Hcl 25 Mg Supp.Rect RC Q6H PRN Nausea / Vomiting Sodium Chloride 1 syr 04/12/20 05:00 0.9% Sodium Chloride 10 Ml Disp.Syrin IVF Q8HR DEREK Sodium Chloride 1 syr 04/11/20 23:07 0.9% Sodium Chloride 10 Ml Disp.Syrin IVF Q8HR PRN Keep vein open Trazodone HCl 50 mg 04/11/20 21:00 04/11/20 21:35 Trazodone Hcl 50 Mg Tablet PO 50 mg BEDTIME DEREK Administration Trazodone HCl 50 mg 04/12/20 07:14 Trazodone Hcl 50 Mg Tablet PO BEDTIME PRN Insomnia Trazodone HCl 50 mg 04/12/20 07:30 Trazodone Hcl 50 Mg Tablet PO BEDTIME PRN Insomnia Trazodone HCl 50 mg 04/12/20 21:00 04/13/20 20:32 Trazodone Hcl 50 Mg Tablet PO 50 mg BEDTIME DEREK Administration Vital Signs: Temp Pulse Resp BP Pulse Ox 04/11/20 11:44 95.8 F L 52 L 20 91/46 L 94 L Discharge Plan Discharge Patient Disposition: PLACED OBSERVATION Discharge Problem: Acute diarrhea, Colitis, Chronic CHF (congestive heart failure), Diarrhea, Hypotension ED Provider: GARTH PADILLA Condition: Fair
[2020-04-11 12:53] LABS: BASOPHILS # (AUTO) 0.1 K/uL (0-0.2); BASOPHILS % (AUTO) 0.3 % (0.0-3.0); EOSINOPHILS % (AUTO) 0.1 % (0.0-7.0); HEMATOCRIT 36.7 % (42.0-52.0); HEMOGLOBIN 11.9 g/dl (14.0-18.0); IMMATURE GRANULOCYTE # (AUTO) 0.2 (0.0-1.0); IMMATURE GRANULOCYTE % (AUTO) 0.9 % (0.0-5.0); LYMPHOCYTES % (AUTO) 5.3 (10.0-50.0); MEAN CORPUSCULAR HGB CONC 32.4 (31.8-35.4); MEAN CORPUSCULAR VOLUME 85.3 fl (80.0-94.0); MONOCYTES # (AUTO) 1.2 K/uL (0.4-2.0); MONOCYTES % (AUTO) 6.2 (0-10); NEUTROPHILS # (AUTO) 16.3 K/ul (2.0-6.9); NEUTROPHILS % (AUTO) 87.2 % (42.2-75.2); PLATELET COUNT 247 10^3/uL (140-440); RDW COEFFICIENT OF VARIATION 15.9 % (11.6-14.8); WHITE BLOOD COUNT 18.63 K/ul (4.2-10.2)
[2020-04-11 13:06] LABS: ALANINE AMINOTRANSFERASE 20.8 U/L (0-50); ALBUMIN 3.51 g/dL (3.5-5.0); ALKALINE PHOSPHATASE 118.3 U/L (56-119); ASPARTATE AMINO TRANSFERASE 36.6 U/L (17-59); BILIRUBIN,TOTAL 0.79 mg/dL (0.2-1.3); BLOOD UREA NITROGEN 26.6 mg/dL (9-20); CALCIUM 8.91 mg/dL (8.4-10.2); CARBON DIOXIDE 24.7 mmol/L (22-30.0); CREATININE 1.02 mg/dL (0.60-1.10); GLUCOSE 226.3 mg/dL (74-106); SODIUM 129.6 mmol/L (134.5-145); TOTAL PROTEIN 7.01 g/dL (6.3-8.2)
[2020-04-11 13:46] LABS: OCCULT BLOOD SAMPLE 1 POSITIVE (NEGATIVE); OCCULT BLOOD SAMPLE 2 NO SPECIMEN RECEIVED (NEGATIVE)
[2020-04-11 13:47] LABS: OCCULT BLOOD SAMPLE 3 NO SPECIMEN RECEIVED (NEGATIVE)
--- NOTE | 2020-04-11 15:09 | CT ---
EXAM: CT Abdomen Pelvis HISTORY: Diarrhea stools occult-blood positive COMPARISON: 08/29/2018, 06/28/2017 TECHNIQUE: CT of the Abdomen Pelvis was performed without contrast. Coronal and sagital reformats we re obtained. FINDINGS: Redemonstrated chronic consolidation and small pleural effusion in the dependent right lower lobe. Q uestionable increased subpleural linear atelectasis or scarring in the right middle lobe base. No acute findings in the liver, spleen, atrophic fatty replaced pancreas, or adrenal glands. Nonobst ructive right renal calculi measuring up to approximately 1.6 cm, including nonobstructive 0.9 cm juan culus in the renal pelvis are unchanged. Circumferential bladder wall thickening. No small or large bowel dilation. Moderate circumferential wall thickening of the rectosigmoid colon and probably the descending colon to a lesser degree. Incidental bowel lipoma in the ascending colon measuring 1.6 cm (axial 47, coronal 30). Normal appendix. No adenopathy. Normal diameter aorta. Mild scattered atherosclerotic calcifications. No abnormal fluid collection, free fluid or free air. No acute osseous abnormality. Unchanged multilevel chronic lumbar spondylos is. Unchanged chronic L1 compression deformity with height loss and wedging and ankylosis with T12. IMPRESSION: 1. Circumferential wall thickening of the rectosigmoid colon and to a lesser degree the descending c olon, consistent with colitis. Broad differential considerations include infectious, inflammatory or vascular etiologies. 2. No urinary or bowel obstruction. 3. Circumferential wall thickening of the bladder. Broad differential considerations include there is tension, cystitis and/or neoplasm. 4. Unchanged multiple nonobstructive right renal calculi. 5. Unchanged chronic small right pleural effusion with right lower lobe chronic consolidation, which could represent round atelectasis or scar. Other etiologies not excluded. This is unchanged since 06/28/2017. Ther e is mild increased linear atelectasis or scarring in the right middle lobe base.
--- NOTE | 2020-04-11 15:11 | CT ---
EXAM: CT chest without contrast. HISTORY: Weakness. Low blood pressure. Congestive heart failure. COMPARISON: Radiograph 07/09/2019. CT 06/27/2017. TECHNIQUE: Multiple axial images of the chest were obtained without intravenous contrast. Images we re reformatted in the sagittal and coronal planes. FINDINGS: Heart is at the upper limits normal in size. Atherosclerotic calcifications present. The re is no pericardial effusion. Evaluation for lymphadenopathy is limited by lack of intravenous contrast. Calcified pleural plaquing noted. There is a small right pleural effusion with associated pleural th ickening and rounded posterior right lower lobe consolidation and some additional curvilinear opaciti es in the subpleural right lung. Right lung findings are stable since 2017. Thin linear opacities s een in the left lung. Left lung is otherwise clear. There is no pneumothorax. Limited images of the upper abdomen demonstrate no acute finding although refer to same day abdominal CT report for details. Right nephrolithiasis is partially imaged Degenerative changes present in the spine with old L1 compression fracture noted. IMPRESSION: 1. No acute cardiopulmonary process. 2. Stable chronic complex right pleural effusion and adjacent rounded atelectasis. Calcified pleura l plaquing. Findings likely due to previous asbestos exposure.
[2020-04-11] MEDS ORDERED: ROCEPHIN 1 GM/50 ML D5W 1 GM/50 ML BAG IV STA ×2 (15:25→15:40)
[2020-04-11] MEDS ORDERED: FLAGYL PO STA (15:26)
[2020-04-11] MEDS ORDERED: CIPRO 400 MG/200 ML D5W 400 MG/200 ML BAG IV STA (15:37)
[2020-04-11 17:53] VITALS: BMI 39.2
[2020-04-11 17:58] LABS: BILIRUBIN,URINE 2+ (NEGATIVE); CLARITY,URINE Turbid (CLEAR); COLOR,URINE Brown (YELLOW); GLUCOSE, URINE (UA) Negative (NEGATIVE); KETONES,URINE 1+ (NEGATIVE); LEUKOCYTE ESTERASE ,URINE 3+ (NEGATIVE); NITRITE,URINE Negative (NEGATIVE); URINE, BLOOD 3+ (NEGATIVE)
[2020-04-11 18:07] LABS: BACTERIA,URINE 2+ (NOT PRESENT); SQUAMOUS EPITHELIAL CELL,UR NOT PRESENT (0-5); URINE RBC, MICROSCOPIC TNTC (0-2); URINE WBC, MICROSCOPIC TNTC (0-2)
[2020-04-11] MEDS: ZOFRAN 4 MG/2 ML IVP PRN (19:22)
[2020-04-11] MEDS ORDERED: PHENERGAN SUPP RC PRN (20:15)
--- NOTE | 2020-04-11 20:27 | PCM ---
Chief Complaint Chief Complaint: Vomiting, Diarrhea, Dehydration, Hypovolemia, Group Home Resident History of Present Illness History of Present Illness: Mr. Williamsno is a 74 year old CM met[place] resident of [facility]. assisted called [facility] at 1032 this am and Comfort noted that patients BP was 72/42 this morning and was 98/48 at time of conversation. They noted patient was having emesis was given a Zofran however the patient continued to have emesis and lost the rx. Comfort from [facility] states the patient has also had diarrhea and was "pale, cold, clammy." She stated that the patients temp was 98.5, he does not get out of his bed at all. His pulse was 42 and they were worried about him. Nurse Ivania got me urgently and with his hypotension, bradycardia, I recommended that he be transferred urgently to the ER for further evaluation. He arrived via ambulance on 04/11/20 at around 12:[address] Clayton. Noted diarrhea, nausea, emesis, feeling weak, tired. He was hypotensive, bradycardic as found at [place]. Initial vitals were found to be temp 95.8, HR 52, BP 91/46, RR20, pulse ox 94% on RA. He met SIRS criteria with low temp, RR >20, and eventually WBC >12. He has chronic back wounds, chronic lack of movement, chronic group home status and rarely gets out of bed/bathes. Symptom onset within 24 hours. #2 episodes of emesis in last 24 hours, Diarrhea x 3 in last 24 hours. Moderate severity initially and currently. Bilious vo miting, non bloody, regurgitant w/ stomach contents. Diarrhea watery, not particularly foul smelling, soft, dark. He is on iron regularly (fecal ocult was + in ED but he is on iron). ED provider noted that the stool was darker but not characteristic of BRBPR or melenotic. Abd pain noted, light-headedness noted, dizziness noted. Ddx considered dehydration, viral gastroenteritis, pancreatitis, UTI. ROS from ED note reviewed. Listed no symptoms across the board. PFSH reviewed, phs exam ill appearing obest male. conjunctiva clear. OP normal. TM occluded. Airway patent/breath sounds grupo.r CV RRR, normal pulses. GI non tender, no masses hypoactive BS. CT chest completed and radiology report reviewed: . " 1. Circumferential wall thickening of the rectosigmoid colon and to a lesser degree the descending colon, consistent with colitis. Broad differential considerations include infectious, inflammatory or vascular etiologies. 2. No urinary or bowel obstruction. 3. Circumferential wall thickening of the bladder. Broad differential considerations include there is tension, cystitis and/or neoplasm. 4. Unchanged multiple nonobstructive right renal calculi. 5. Unchanged chronic small right pleural effusion with right lower lobe chronic consolidation, which could represent round atelectasis or scar. Other etiologies not excluded. This is unchanged since 06/28/2017. There is mild increased linear atelectasis or scarring in the right middle lobe base. CT chest completed and reviewed report from radiology: "IMPRESSION: 1. No acute cardiopulmonary process. 2. Stable chronic complex right pleural effusion and adjacent rounded atelectasis. Calcified pleural plaquing. Findings likely due to previous asbestos exposure." ABG was done and showed + allens test, O2 89%, pH 7.360, pco2 43.4, po2 60, hco3 24.5, total co2 26, fio2 21%. Independent interpretation suggests that this ABG is near normal with hypoxia. Numbers generally suggest chronic primary respiratory acidosis with metabolic acidosis as well. With pH of 7.36 this is rather normal, pco2 is with range of 35-45, hco3 iw in range of 22-26. ER LABS: CBC 18.63, hgb 11.9, plt 247. Predominately neutrophila with 87.2%. Neut #16.3. CMP Sodium 139.6, K+ 4.37, Cl 96.0, BUN 26.6, Cr 1.02, glucose 226.3. Corrected sodium was 132 based on DELGADO equation and 133 based on Ariel and minimally low. BNP: minimally elevated at 761.0. Lipase 29.8 and normal suggesting pancreatitis is less likely, similar findings when compared to imaging. Troponin I negative at <0.012. Lactic acid was negative at 0.69, procalcitonin 0.12. Alk phs normal 118.3, ast 36.6, alt 20.8. Stool occult listed as + but patient is on iron. He was given 1 L of NS in ED, caution from ED provider due to history of CHF. Patient has known chronic HTN, insulin dependent DM controlled with recent a1c <7%, HLD, depression, nausea, constipation, COPD, anxiety, yeast infections of skin, GERD. Patient was accepted by me under observastion status at approximately 16:00. Above reviewed, patient seen/examined specifically at 2100. Talked with floor nursing, orders placed, patient reassessed at my review. He is on telemetry. We are using FLIP/SCD for DVT prophy due to ?blood in stool. He will be placed on contact isolation with concern for diarrhea and pending C.Diff. Most recent vitals at 20:27 showed BP improved to 108/60, pulse 85, rr 18, temp 97.7, o2 sat 99. Reviewed chart. Microalbumin done and negative within last year. A1C last done 02/19/20 and was 6.32. Urinalysis in ED showed brown, turbid, pH 1.020 2+ protein, negative glucose, 1+ ketones, 3+ blood, 2+ bili, 2.0 urobil, LE 3_, TNTC RBC, TNTC WBC, Squams not present, bacteria 2+. [id number] called by Nurses and provided order for antiemetic and noted I would place orders. Talked with nursing and reviewed care with patient. No further emesis from the one noted above. No further diarrhea. He is on contact isolation. Notes pain in abdomen now at 3-4/10. NO fluid orders, I will add this overnight. Maintenance fluids based on [place] body weight 111ml/hour. He has not had any further N/V. Telemetry looks good with Sinus arrythmia and AV block 1st degree. BP is improved. Holding lisinopril overnight. Cultures for urine/skin collected. Have not yet collected stool for PCR/Cdiff. Will order labs/see again in am. [place] Body weight 156 pounds Adjusted Body weigth 200 pounds. REVIEW OF SYMPTOMS: (Positives bolded) General: weight loss, fever, chills, night sweats, fatigue, appetite loss, NH Resident, Poor mobility, Rarely OOB HEENT: blurry vision, eye pain, eye discharge, dry eyes, decreased vision, sore throat, tinnitus, bloody nose, hearing loss, sinus pain/pressure, ear pain/pressure. Respiratory: shortness of breath, cough, hemoptysis, wheezing, pleurisy, Cardiovascular: chest pain, PND, palpitation, edema, orthopnea, syncope, swelling of extremities Gastro: Nausea, vomiting, diarrhea, hematemesis, abdominal pain, constipation *Chronically* Genito: hematuria, dysuria, glycosuria, hesitancy, frequency, incontinence uses urinal only. [place]ckelo: Arthralgia, myalgia chronically (knees), muscle weakness, joint swelling, NSAID use Skin: rash, pruritis, sores (shearing bed sores noted buttock, back, skin breakdown in abdominal folds), skin thickening (bilateral LE hemosiderin staining stasis dermatitis), change in wart/mole, itching, rash, new lesions, pruritus, nail changes Neuro: Migraine, numbness, ataxia, tremor, vertigo, weakness, memory loss, Irritability, dizziness Endocrine: excessive thirst, polyuria, cold intolerance, heat intolerance, goiter, DM Psychiatric: depression, anxiety, anti-depressants, alcohol abuse, drug abuse, insomnia, change in sleep pattern and mood changes Heme/lymph: easy bruising, bleeding gums, blood clots, swollen glands, lymphedema, Allergic/immune: allergic rhinitis, hay fever, asthma, hives Vital Signs - 24 hr 04/11/20 11:44 04/11/20 16:39 04/11/20 18:00 Temperature 95.8 F L 97.7 F 97.7 F Pulse Rate 52 L 85 85 Respiratory Rate 20 18 18 Blood Pressure 91/46 L 108/60 O2 Sat by Pulse Oximetry 94 L 99 99 04/11/20 20:27 Temperature 97.7 F Pulse Rate 85 Respiratory Rate 18 Blood Pressure 108/60 O2 Sat by Pulse Oximetry 99 Constitutional: Appearance-No acute distress, Consistent with stated age. Orientation- Oriented x 3, alert. GCS 15. Gait- Bed bound. Build and Nutrition- [obesity BMI 39.3] General- Patient is pleasant and cooperative with the interview and exam. Integumentary: General-No generalized rashes, ulcers or lesions on chest, face, UE bilaterally, axilla, groin, thighs. Hemosiderin staining, venous stasis chronically bilateral shins. Shearing lesion upper back chronically from not getting out bed. Similarly left buttock from not getting out of bed. No sacral decub, no heel decub. Breakdown early in abdominal folds. Rolling, skin prep, care to areas of skin contact. Palpation- Normal skin moisture/turgor. Skin is warm to touch, appropriate. Capillary refill is normal bilateral Upper and lower extremity. No e/o secondary infection. Wound cultures obtained. Patient on cipro. Head/Neck: Head- normocephalic and atraumatic. Neck- without visible/palpable lumps or pulsations. Palpation- No bony tenderness about head/neck along frontal, occipital, temporal, parietal, mastoid, jawline, zygoma, orbit or any other location. NO temporal artery tenderness. No TMJ tenderness. Neck Supple. Thyroid-No thyromegaly, no nodules Eye: Bilaterally PERRLA, EOMI. No discharge. Upper and lower eyelids are normal. Sclera/conjunctiva normal without discharge. Cornea is normal and clear. Lens is normal. Eyeball appears normal. No ciliary flushing, no conjunctival injection. ENMT: Pinna- normal without tenderness or erythema. External auditory canal Left- normal without erythema or discharge, no excessive cerumen. External auditory canal Right-normal without erythema or discharge, no excessive cerumen. TM left- Marquez/pearly, normal light reflex and anatomy TM Right- Marquez/pearly, normal light reflex and anatomy Hearing Assessment-normal to conversational speech. Nose and sinus- No sinus tenderness along frontal/maxillary region. External appearance normal and midline. Nares- bilateral quiet airflow, no discharge. Nasal mucosa- No bleeding noted and no ulcerations observed. [place], moist. Turbinates non boggy. Lips- normal color, moist without cracks/lesions Oral Cavity/Palate- hard/soft palate intact without lesions, oral mucosa pink and moist. Tongue normal midline. Oropharynx- no pharyngeal erythema, Uvula midline. No post nasal drip. No exudate. Salivary glands- Non tender to palpation CHEST/LUNG: Inspection- symmetric chest wall no pectus deformity. Decreased effort, shallow breathing, no distress, no use of accessory muscles. Palpation- nontender sternum, ribline. No abnormal pulsations. Auscultation- Breath sounds diminished/distant throughout all lung lewis. Normal tracheal sounds, Normal bronchial sounds overlying sternum, Bronchovessicular sounds normal between scapulae posteriorly, Normal vessicular breath sounds heard throughout periphery. Lungs are clear today. Adventitious sounds- scattered wheezes, fine crackling and rare rhonchi. CARDIOVASCULAR: Carotid artery- normal, no bruits or abnormal pulsations. Jugular vein- no pulsations. Palpation/Percussion- Normal PMI, no palpable thrill Auscultation- Distant heart sounds. Normal rate at time of eval. No murmur noted in supine positions. Extremities- no cyanosis, edema, increased warmth. ABDOMEN: Inspection- normal and no visible pulsations. Normal contour. Auscultation- Bowel sounds appear normal to mildly hypoactive, no abdominal bruits. Palpation/Percussion- soft, mild generalized tenderness. No rebound, no guarding, no rovsing, no mcburney, no obturator/psoas, no e/o hepatic locus. Liver 3 fingers below costal margin. Somewhat limited exam due to habitus. no jar tenderness, no masses. Liver-no hepatomegaly, Spleen no splenomegaly, Hernias- none. Rectal not examined. Peripheral Vascular: Upper extremity Left- Normal temperature with pink nailbeds and no ulcerations. Upper extremity Right- Normal temperature with pink nailbeds and no ulcerations. Lower extremity- Cool temperature symmetrical. Hemosiderin changes, chronic stasis dermatitis appearance bilateral LE. Musculoskeletal: Generalized-No generalized swelling or edema of extremities, no digital clubbing or cyanosis, neurovascularly intact all four extremities. Weakness in general from deconditioning. Upper extremity- Symmetrical posture. No visible deformity. Normal sensation along medial and lateral upper extremity proximally and distally. NO tenderness overlying shoulder, lateral/medial epicondyle. Rehabilitation Consultant 5/5 and strength 5/5 bilateral UE. Elbow palpated, no tenderness overlying olecranon. Normal supination, pronation to active/passive ROM and to resisted rotation. Bicep insertion/tricep insertion appear normal without obvious pathology. Rotator cuff evaluated and intact. Normal wrist ROM bilaterally. Normal hand movement, intrinsic muscles of hands normal. No tenderness to palpation of hands/wris ts/elbows. Lower extremity- Hip: Not tender to palpation, no pain, no swelling, edema or erythema of surrounding tissue, normal strength and tone. Reduced appearing hip ROM bilaterally without pain. Chronic Knee: Knee ROM reduced. Tender to palpation medial and lateral joint line. No tenderness overlying trochanters, no tenderness about patella, quad tendon, patellar tendon. No tenderness at tibial tuberosity. Ankle: normal ROM not tender to palpation along medial/lateral malleolus. Foot: Normal movement of toes, no tenderness bilateral feet/toes. Decreased DP and PT pulses. Spine/Ribs- No deformities, masses or tenderness, no known fractures, normal strength, Limited ROM. Neurological: General- Moves all 4 extremities slowly, reduced str and decreased general conditioing. Symmetrical face and body posture. Cranial nerves- individually evaluated II-XII and intact. PERRLA, Normal EOMI, visual/special senses appear intact, Face is symmetrical and normal sensation/movement, normal tongue, normal strength/posture of neck musculature. Reflexes- intact with DTR 2+ patellar, Achilles, bicep, brachial, tricep. Ankle clonus normal with 2 beats. Strength- 5/5 bilateral UE and LE. Soft touch- intact bilateral UE and LE. Temperature sensation- intact bilateral UE and LE. Neuropsych: Oriented- Person, place, time. (AAOx3), Mood/affect- normal and congruent. Able to articulate well. Speech-Normal speech, normal rate, normal tone, normal use of language, volume and coherence. Thought content- normal with ability to perform basic computations and apply abstract thought/reason. Associations- intact, no SI/HI, no hallucinations, delusions, obsessions. Judgment/insight- Appropriate. Memory-Recall intact, remote and recent memory intact. Knowledge- Age appropriate fund of knowledge, concentration and attention span normal. Lymphatic: Head/Neck- normal size and non tender to palpation. Axillary- normal size and non tender to palpation. Femoral and Inguinal- normal size and non tender to palpation. Laboratory Results - last 24 hr 04/11/20 04/11/20 04/11/20 12:18 12:20 12:40 WBC RBC Hgb Hct MCV MCH MCHC RDW Coeff of Scott Plt Count Immature Gran % (Auto) Neut % (Auto) Lymph % (Auto) Cooper % (Auto) Eos % (Auto) Baso % (Auto) Neut # (Auto) Lymph # (Auto) Cooper # (Auto) Eos # (Auto) Baso # (Auto) Immature Gran # (Auto) Puncture Site Rrad O2 Saturation 89.0 L ABG pH 7.360 ABG pCO2 43.4 ABG pO2 60.0 L ABG HCO3 24.5 ABG Total CO2 26 ABG Base Excess -1 Chase Test + FiO2 % 21.0 Sodium Potassium Chloride Carbon Dioxide Anion Gap BUN Creatinine Estimated GFR (MDRD) BUN/Creatinine Ratio Glucose Lactic Acid Calcium Total Bilirubin AST ALT Alkaline Phosphatase Troponin I NT-Pro-B Natriuret Pep 761.000 H Total Protein Albumin Globulin Albumin/Globulin Ratio Lipase 29.8 Procalcitonin Urine Color Urine Clarity Urine pH Ur Specific [place] Urine Protein Urine Glucose (UA) Urine Ketones Urine Blood Urine Nitrite Urine Bilirubin Urine Urobilinogen Ur Leukocyte Esterase Urine Microscopic RBC Urine Microscopic WBC Ur Squamous Epith Cells Urine Bacteria Stl Occult Blood (IFOB) Stool Occult Blood #2 Stool Occult Blood #3 04/11/20 04/11/20 04/11/20 12:48 12:48 12:48 WBC 18.63 H RBC 4.30 L Hgb 11.9 L Hct 36.7 L MCV 85.3 MCH 27.7 MCHC 32.4 RDW Coeff of Scott 15.9 H Plt Count 247 Immature Gran % (Auto) 0.9 Neut % (Auto) 87.2 H Lymph % (Auto) 5.3 L Cooper % (Auto) 6.2 Eos % (Auto) 0.1 Baso % (Auto) 0.3 Neut # (Auto) 16.3 H Lymph # (Auto) 1.0 Cooper # (Auto) 1.2 Eos # (Auto) 0.0 Baso # (Auto) 0.1 Immature Gran # (Auto) 0.2 Puncture Site O2 Saturation ABG pH ABG pCO2 ABG pO2 ABG HCO3 ABG Total CO2 ABG Base Excess Chase Test FiO2 % Sodium 129.6 L Potassium 4.37 Chloride 96.0 L Carbon Dioxide 24.7 Anion Gap 13.27 BUN 26.6 H Creatinine 1.02 Estimated GFR (MDRD) 71.00 BUN/Creatinine Ratio 26.07 Glucose 226.3 H Lactic Acid Calcium 8.91 Total Bilirubin 0.79 AST 36.6 ALT 20.8 Alkaline Phosphatase 118.3 Troponin I < 0.012 NT-Pro-B Natriuret Pep Total Protein 7.01 Albumin 3.51 Globulin 3.50 Albumin/Globulin Ratio 1.00 Lipase Procalcitonin 0.12 Urine Color Urine Clarity Urine pH Ur Specific [place] Urine Protein Urine Glucose (UA) Urine Ketones Urine Blood Urine Nitrite Urine Bilirubin Urine Urobilinogen Ur Leukocyte Esterase Urine Microscopic RBC Urine Microscopic WBC Ur Squamous Epith Cells Urine Bacteria Stl Occult Blood (IFOB) Stool Occult Blood #2 Stool Occult Blood #3 04/11/20 04/11/20 04/11/20 12:48 13:20 16:20 WBC RBC Hgb Hct MCV MCH MCHC RDW Coeff of Scott Plt Count Immature Gran % (Auto) Neut % (Auto) Lymph % (Auto) Cooper % (Auto) Eos % (Auto) Baso % (Auto) Neut # (Auto) Lymph # (Auto) Cooper # (Auto) Eos # (Auto) Baso # (Auto) Immature Gran # (Auto) Puncture Site O2 Saturation ABG pH ABG pCO2 ABG pO2 ABG HCO3 ABG Total CO2 ABG Base Excess Chase Test FiO2 % Sodium Potassium Chloride Carbon Dioxide Anion Gap BUN Creatinine Estimated GFR (MDRD) BUN/Creatinine Ratio Glucose Lactic Acid 0.69 L Calcium Total Bilirubin AST ALT Alkaline Phosphatase Troponin I NT-Pro-B Natriuret Pep Total Protein Albumin Globulin Albumin/Globulin Ratio Lipase Procalcitonin Urine Color Brown Urine Clarity Turbid Urine pH 5.0 Ur Specific [place] 1.020 Urine Protein 2+ H Urine Glucose (UA) Negative Urine Ketones 1+ H Urine Blood 3+ H Urine Nitrite Negative Urine Bilirubin 2+ H Urine Urobilinogen 2.0 H Ur Leukocyte Esterase 3+ H Urine Microscopic RBC Tntc Urine Microscopic WBC Tntc Ur Squamous Epith Cells Not present Urine Bacteria 2+ Stl Occult Blood (IFOB) Positive Stool Occult Blood #2 No specimen received Stool Occult Blood #3 No specimen received IMPRESSION: 1. No acute cardiopulmonary process. 2. Stable chronic complex right pleural effusion and adjacent rounded atelectasis. Calcified pleural plaquing. Findings likely due to previous asbestos exposure. IMPRESSION: 1. Circumferential wall thickening of the rectosigmoid colon and to a lesser degree the descending colon, consistent with colitis. Broad differential c onsiderations include infectious, inflammatory or vascular etiologies. 2. No urinary or bowel obstruction. 3. Circumferential wall thickening of the bladder. Broad differential considerations include there is tension, cystitis and/or neoplasm. 4. Unchanged multiple nonobstructive right renal calculi. 5. Unchanged chronic small right pleural effusion with right lower lobe chronic consolidation, which could represent round atelectasis or scar. Other etiologies not excluded. This is unchanged since 06/28/2017. There is mild increased linear atelectasis or scarring in the right middle lobe base. Allergies Allergies Allergy/AdvReac Type Severity Reaction Status Date / Time No Known Allergies Allergy Verified 06/24/17 11:50 [facility] Medical History Anxiety Atherosclerosis CHF (congestive heart failure) COPD (chronic obstructive pulmonary disease) Dementia Depression Diabetes Dyslipidemia Fall GERD (gastroesophageal reflux disease) Hearing problem Hypertension Insomnia Insulin dependent type 1 diabetes mellitus Osteoarthritis Sleep apnea Surgical History (Updated 03/13/20 @ 08:53 by [place]) History of musculoskeletal system surgery History of surgery Nasal septoplasty Status post cholecystectomy Status post tonsillectomy Status post tonsillectomy and adenoidectomy Family History (Updated 04/11/20 @ 16:55 by NICK METZGER, OSWALD) Other No known health problems Social History (Updated 04/11/20 @ 16:57 by NICK METZGER, OSWALD) Smoking and tobacco status: Former smoker Alcohol intake: former Medications Medications: Medications Generic Name Dose Route Start Last Admin Trade Name Freq PRN Reason Stop Dose Admin Hydrocodone Bitart/Acetaminophen 1 tab 04/11/20 21:00 Hydrocodone Bit/Acetaminophen 7.5/325 Mg Tablet PO TID DEREK Atorvastatin Calcium 10 mg 04/12/20 09:00 Atorvastatin Calcium 10 Mg Tablet PO DAILY DEREK Ciprofloxacin 500 mg 04/11/20 21:00 Ciprofloxacin Hcl 500 Mg Tablet PO 04/14/20 20:59 BIDCIPRO [facility] Insulin Glargine 25 unit 04/11/20 21:00 Insulin Glargine,Hum.Rec.Anlog 100 Units/Ml SUBCUT BEDTIME [facility] Linagliptin 5 mg 04/12/20 09:00 Linagliptin 5 Mg Tablet PO DAILY DEREK Lorazepam 0.5 mg 04/11/20 21:00 Lorazepam 0.5 Mg Tablet PO BID DEREK Metronidazole 500 mg 04/11/20 21:00 Metronidazole 250 Mg Tablet PO 04/14/20 20:59 Q8HR DEREK Non-Formulary Medication 325 mg 04/11/20 21:00 Ferrous Sulfate PO BID DEREK Non-Formulary Medication 81 mg 04/12/20 09:00 Aspirin PO DAILY DEREK Non-Formulary Medication 10 mg 04/12/20 09:00 Vortioxetine PO DAILY DEREK Non-Formulary Medication 20 mg 04/12/20 09:00 Omeprazole PO DAILY DEREK Non-Formulary Medication 1 inh 04/12/20 09:00 Fluticasone Furoate-Vilanterol [Breo Ellipta] IH DAILY [facility] Ondansetron HCl 4 mg 04/11/20 18:58 04/11/20 19:22 Ondansetron Hcl/Pf 4 Mg/2 Ml Sdv IVP 4 mg Q6H PRN Administration Nausea / Vomiting Promethazine HCl 25 mg 04/11/20 20:15 Promethazine Hcl 25 Mg Supp.Rect RC Q6H PRN Nausea / Vomiting Trazodone HCl 50 mg 04/11/20 21:00 Trazodone Hcl 50 Mg Tablet PO BEDTIME DEREK Body Composition Height: 5 ft 9 in Weight: 266 lb 1.567 oz Body Mass Index (BMI): 39.2 Vital Signs Temperature: 97.7 F Pulse Rate: 85 Respiratory Rate: 18 Blood Pressure: 108/60 O2 Sat by Pulse Oximetry: 99 Lab/Tests/Diagnostic Imaging Lab/Tests/Diagnostic Imaging: Lab Review 04/11/20 04/11/20 04/11/20 12:18 12:20 12:40 WBC RBC Hgb Hct MCV MCH MCHC RDW Coeff of Scott Plt Count Immature Gran % (Auto) Neut % (Auto) Lymph % (Auto) Cooper % (Auto) Eos % (Auto) Baso % (Auto) Neut # (Auto) Lymph # (Auto) Cooper # (Auto) Eos # (Auto) Baso # (Auto) Immature Gran # (Auto) Puncture Site Rrad O2 Saturation 89.0 L ABG pH 7.360 ABG pCO2 43.4 ABG pO2 60.0 L ABG HCO3 24.5 ABG Total CO2 26 ABG Base Excess -1 Chase Test + FiO2 % 21.0 Sodium Potassium Chloride Carbon Dioxide Anion Gap BUN Creatinine Estimated GFR (MDRD) BUN/Creatinine Ratio Glucose Lactic Acid Calcium Total Bilirubin AST ALT Alkaline Phosphatase Troponin I NT-Pro-B Natriuret Pep 761.000 H Total Protein Albumin Globulin Albumin/Globulin Ratio Lipase 29.8 Procalcitonin Urine Color Urine Clarity Urine pH Ur Specific [place] Urine Protein Urine Glucose (UA) Urine Ketones Urine Blood Urine Nitrite Urine Bilirubin Urine Urobilinogen Ur Leukocyte Esterase Urine Microscopic RBC Urine Microscopic WBC Ur Squamous Epith Cells Urine Bacteria Stl Occult Blood (IFOB) Stool Occult Blood #2 Stool Occult Blood #3 04/11/20 04/11/20 04/11/20 12:48 12:48 12:48 WBC 18.63 H RBC 4.30 L Hgb 11.9 L Hct 36.7 L MCV 85.3 MCH 27.7 MCHC 32.4 RDW Coeff of Scott 15.9 H Plt Count 247 Immature Gran % (Auto) 0.9 Neut % (Auto) 87.2 H Lymph % (Auto) 5.3 L Cooper % (Auto) 6.2 Eos % (Auto) 0.1 Baso % (Auto) 0.3 Neut # (Auto) 16.3 H Lymph # (Auto) 1.0 Cooper # (Auto) 1.2 Eos # (Auto) 0.0 Baso # (Auto) 0.1 Immature Gran # (Auto) 0.2 Puncture Site O2 Saturation ABG pH ABG pCO2 ABG pO2 ABG HCO3 ABG Total CO2 ABG Base Excess Chase Test FiO2 % Sodium 129.6 L Potassium 4.37 Chloride 96.0 L Carbon Dioxide 24.7 Anion Gap 13.27 BUN 26.6 H Creatinine 1.02 Estimated GFR (MDRD) 71.00 BUN/Creatinine Ratio 26.07 Glucose 226.3 H Lactic Acid Calcium 8.91 Total Bilirubin 0.79 AST 36.6 ALT 20.8 Alkaline Phosphatase 118.3 Troponin I < 0.012 NT-Pro-B Natriuret Pep Total Protein 7.01 Albumin 3.51 Globulin 3.50 Albumin/Globulin Ratio 1.00 Lipase Procalcitonin 0.12 Urine Color Urine Clarity Urine pH Ur Specific Franklin Urine Protein Urine Glucose (UA) Urine Ketones Urine Blood Urine Nitrite Urine Bilirubin Urine Urobilinogen Ur Leukocyte Esterase Urine Microscopic RBC Urine Microscopic WBC Ur Squamous Epith Cells Urine Bacteria Stl Occult Blood (IFOB) Stool Occult Blood #2 Stool Occult Blood #3 04/11/20 04/11/20 04/11/20 12:48 13:20 16:20 WBC RBC Hgb Hct MCV MCH MCHC RDW Coeff of Scott Plt Count Immature Gran % (Auto) Neut % (Auto) Lymph % (Auto) Cooper % (Auto) Eos % (Auto) Baso % (Auto) Neut # (Auto) Lymph # (Auto) Cooper # (Auto) Eos # (Auto) Baso # (Auto) Immature Gran # (Auto) Puncture Site O2 Saturation ABG pH ABG pCO2 ABG pO2 ABG HCO3 ABG Total CO2 ABG Base Excess Chase Test FiO2 % Sodium Potassium Chloride Carbon Dioxide Anion Gap BUN Creatinine Estimated GFR (MDRD) BUN/Creatinine Ratio Glucose Lactic Acid 0.69 L Calcium Total Bilirubin AST ALT Alkaline Phosphatase Troponin I NT-Pro-B Natriuret Pep Total Protein Albumin Globulin Albumin/Globulin Ratio Lipase Procalcitonin Urine Color Brown Urine Clarity Turbid Urine pH 5.0 Ur Specific Franklin 1.020 Urine Protein 2+ H Urine Glucose (UA) Negative Urine Ketones 1+ H Urine Blood 3+ H Urine Nitrite Negative Urine Bilirubin 2+ H Urine Urobilinogen 2.0 H Ur Leukocyte Esterase 3+ H Urine Microscopic RBC Tntc Urine Microscopic WBC Tntc Ur Squamous Epith Cells Not present Urine Bacteria 2+ Stl Occult Blood (IFOB) Positive Stool Occult Blood #2 No specimen received Stool Occult Blood #3 No specimen received Orders Category Date Time Status ADMIT OBSERVATION [PLACE PATIENT OBSERVATION] .TO ADMISSION 04/11/20 18:10 Active MEDSURG (MONITORED BED) ABG DRAW REQUEST Stat CARDIO 04/11/20 12:18 Completed EKG-(ED ONLY) Stat CARDIO 04/11/20 12:19 Completed BLOOD GLUCOSE MONITORING 0630,1100,1700,2200 CARE 04/11/20 20:21 Ordered C-DIFF MONITORING (NURSING) BID CARE 04/11/20 20:13 Ordered ISOLATION ONCE CARE 04/11/20 20:20 Ordered PHARMACIST CONSULT ONCE CARE 04/11/20 17:53 Active TELEMETRY MONITORING TELE CARE 04/11/20 18:11 Active VTE PREVENTION .SCD 24 Hours CARE 04/11/20 17:19 Active ABG Stat LAB 04/11/20 12:18 Completed BLOOD CULTURE (ED ONLY) Stat LAB 04/11/20 15:17 Received C. DIFFICILE Routine LAB 04/11/20 20:12 Uncollected CBC W/ AUTO DIFF DAILY@0600 LAB 04/12/20 06:00 Ordered CBC W/ AUTO DIFF DAILY@0600 LAB 04/13/20 06:00 Ordered CBC W/ AUTO DIFF Stat LAB 04/11/20 12:48 Completed CMP [COMPREHENSIVE METABOLIC PANEL] Stat LAB 04/11/20 12:48 Completed COMPREHENSIVE METABOLIC PANEL DAILY@0600 LAB 04/12/20 06:00 Ordered COMPREHENSIVE METABOLIC PANEL DAILY@0600 LAB 04/13/20 06:00 Ordered LACTIC ACID Stat LAB 04/11/20 12:48 Completed LIPASE Stat LAB 04/11/20 12:20 Completed MISCELLANEOUS SEND OUT Routine LAB 04/11/20 20:09 Uncollected NT-PROBNP Stat LAB 04/11/20 12:40 Completed OCCULT BLOOD, STOOL Stat LAB 04/11/20 13:20 Completed PROCALCITONIN Stat LAB 04/11/20 12:48 Completed TROPONIN I Stat LAB 04/11/20 12:48 Completed UA [URINALYSIS C & S IF INDICATED] Stat LAB 04/11/20 16:20 Completed URINE CULTURE Stat LAB 04/11/20 16:20 Received WOUND CULTURE Routine LAB 04/11/20 19:40 Received Atorvastatin Calcium [Lipitor] MEDS 04/12/20 09:00 Ordered 10 mg PO DAILY Ceftriaxone/D5w 1 gm Premix [Rocephin 1 gm/50 ml D5w] MEDS 04/11/20 15:40 Discontinued 1 gm in 50 ml IV ONCE Ciprofloxacin HCl [Cipro] MEDS 04/11/20 21:00 Ordered 500 mg PO BIDCIPRO Ciprofloxacin/D5w [Cipro 400 mg/200 ml D5w] MEDS 04/11/20 15:37 Discontinued 400 mg in 200 ml IV ONCE Hydrocodone Bit/Acetaminophen [Saxon 7.5-325] MEDS 04/11/20 21:00 Ordered 1 tab PO TID Insulin Glargine,Hum.rec.anlog [Lantus] MEDS 04/11/20 21:00 Ordered 25 unit SUBCUT BEDTIME Linagliptin [Tradjenta] MEDS 04/12/20 09:00 Ordered 5 mg PO DAILY Lorazepam [Ativan] MEDS 04/11/20 21:00 Ordered 0.5 mg PO BID Metronidazole [Flagyl] MEDS 04/11/20 15:26 Discontinued 250 mg PO ONCE STA Metronidazole [Flagyl] MEDS 04/11/20 21:00 Ordered 500 mg PO Q8HR Ondansetron HCl/Pf [Zofran 4 mg/2 ml] MEDS 04/11/20 18:58 Active 4 mg IVP Q6H PRN Promethazine HCl [Phenergan Supp] MEDS 04/11/20 20:15 Ordered 25 mg RC Q6H PRN Sodium Chloride 0.9% [Sodium Chloride] 1,000 ml MEDS 04/11/20 12:33 Discontinued IV BOLUS Trazodone HCl [Desyrel] MEDS 04/11/20 21:00 Ordered 50 mg PO BEDTIME aspirin MEDS 04/12/20 09:00 Ordered 81 mg PO DAILY ferrous sulfate MEDS 04/11/20 21:00 Ordered 325 mg PO BID fluticasone furoate-vilanterol [Breo Ellipta] MEDS 04/12/20 09:00 Ordered 1 inh IH DAILY omeprazole MEDS 04/12/20 09:00 Ordered 20 mg PO DAILY vortioxetine MEDS 04/12/20 09:00 Ordered 10 mg PO DAILY RESUSCITATION STATUS Routine OTHERS 04/11/20 17:[address] ABDOMEN/PELVIS WO CONTRAST Stat RADS 04/11/20 13:[address] CHEST W/O CONTRAST Stat RADS 04/11/20 13:56 Completed Medications Generic Name Dose Route Start Last Admin Trade Name Freq PRN Reason Stop Dose Admin Hydrocodone Bitart/Acetaminophen 1 tab 04/11/20 21:00 Hydrocodone Bit/Acetaminophen 7.5/325 Mg Tablet PO TID DEREK Atorvastatin Calcium 10 mg 04/12/20 09:00 Atorvastatin Calcium 10 Mg Tablet PO DAILY DEREK Ciprofloxacin 500 mg 04/11/20 21:00 Ciprofloxacin Hcl 500 Mg Tablet PO 04/14/20 20:59 BIDCIPRO DEREK Insulin Glargine 25 unit 04/11/20 21:00 Insulin Glargine,Hum.Rec.Anlog 100 Units/Ml SUBCUT BEDTIME DEREK Linagliptin 5 mg 04/12/20 09:00 Linagliptin 5 Mg Tablet PO DAILY DEREK Lorazepam 0.5 mg 04/11/20 21:00 Lorazepam 0.5 Mg Tablet PO BID DEREK Metronidazole 500 mg 04/11/20 21:00 Metronidazole 250 Mg Tablet PO 04/14/20 20:59 Q8HR DEREK Non-Formulary Medication 325 mg 04/11/20 21:00 Ferrous Sulfate PO BID DEREK Non-Formulary Medication 81 mg 04/12/20 09:00 Aspirin PO DAILY DEREK Non-Formulary Medication 10 mg 04/12/20 09:00 Vortioxetine PO DAILY DEREK Non-Formulary Medication 20 mg 04/12/20 09:00 Omeprazole PO DAILY DEREK Non-Formulary Medication 1 inh 04/12/20 09:00 Fluticasone Furoate-Vilanterol [Breo Ellipta] IH DAILY DEREK Ondansetron HCl 4 mg 04/11/20 18:58 04/11/20 19:22 Ondansetron Hcl/Pf 4 Mg/2 Ml Sdv IVP 4 mg Q6H PRN Administration Nausea / Vomiting Promethazine HCl 25 mg 04/11/20 20:15 Promethazine Hcl 25 Mg Supp.Rect RC Q6H PRN Nausea / Vomiting Trazodone HCl 50 mg 04/11/20 21:00 Trazodone Hcl 50 Mg Tablet PO BEDTIME DEREK Discontinued Medications Generic Name Dose Route Start Last Admin Trade Name Freq PRN Reason Stop Dose Admin Sodium Chloride 1,000 mls @ 1,000 mls/hr 04/11/20 12:33 04/11/20 12:36 Sodium Chloride IV 04/11/20 13:32 1,000 mls/hr BOLUS STA Administration Ciprofloxacin/Dextrose 400 mg in 200 mls @ 200 mls/hr 04/11/20 15:37 04/11/20 18:32 Cipro 400 Mg/200 Ml D5w IV 04/11/20 16:36 200 mls/hr ONCE STA Administration CEFTRIAXONE/D5W 1 GM PREMIX 1 gm in 50 mls @ 75 mls/hr 04/11/20 15:40 04/11/20 15:43 Rocephin 1 Gm/50 Ml D5w IV 04/11/20 16:19 75 mls/hr ONCE STA Administration Metronidazole 250 mg 04/11/20 15:26 04/11/20 15:41 Metronidazole 250 Mg Tablet PO 04/11/20 15:27 250 mg ONCE STA Administration Assessment (1) assisted resident: Status: Acute Code(s): Z59.3 - Problems related to living in residential institution SNOMED Code(s): 528508472 (2) SIRS (systemic inflammatory response syndrome): Status: Acute Code(s): R65.10 - Systemic inflammatory response syndrome (SIRS) of non-infectious origin without acute organ dysfunction SNOMED Code(s): 835037033 (3) Dehydration: Status: Acute Code(s): E86.0 - Dehydration SNOMED Code(s): 22711729 (4) Colitis: Status: Acute Code(s): K52.9 - Noninfective gastroenteritis and colitis, unspecified SNOMED Code(s): 52903330 (5) Skin breakdown: Status: Acute Code(s): L90.9 - Atrophic disorder of skin, unspecified SNOMED Code(s): 367429555 (6) Type 2 diabetes mellitus with hemoglobin A1c goal of less than 7.0%: Status: Acute Code(s): E11.9 - Type 2 diabetes mellitus without complications SNOMED Code(s): 60141338 (7) Essential hypertension: Status: Acute Code(s): I10 - Essential (primary) hypertension SNOMED Code(s): 68843791 (8) Hypotension: Status: Acute Code(s): I95.9 - Hypotension, unspecified SNOMED Code(s): 57804677 (9) Physical deconditioning: Status: Acute Code(s): R53.81 - Other malaise SNOMED Code(s): 79855509982547 (10) Hyponatremia: Status: Acute Code(s): E87.1 - Hypo-osmolality and hyponatremia SNOMED Code(s): 76154038 Plan Plan: Group Home Resident, SIRS, N/V/D suspect gastroenteritis vs colitis: Home meds reviewed. BP medications Held due to hyponatremia. REsponded to bolus. WIth history of CHF we will rehydrate patient overnight. Admit to inpatient status with hyponatermia, leukocytosis, has met SIRS criteria but Lactic acid and procalc negative. He was hypotensive initially with improvement, was bradycardic upon arrival. Imaging consistent with colitis and emesis/diarrhea with dehydration consistent as well. His hyponatremia corrected to 132. ?Blood in stool may have been iron supplement. Will monitor. Repeat labs in am and f/u with results. Concern for colitis. Concern for UTI in male. He reports feeling a little better, less abd pain, no further emesis/diarrhea when I checked on him. Will get Cdiff. Will get stool PCR. - Admit to inpatient, telemetry, monitored bed. - Maintenance fluids 100ml/hour NS - CBC/CMP in am. - I+O q shift - Await urine culture - Await blood/wound culture. - Await Cdiff and stool pcr. - Anti emetics. - Fluid in am ADA 1800kcall diabetic. - Will trial cipro orally in am if no more emesis else change to IV levaquin. - Oral flagyl, consider changing to IV as well. Hypotension: Seemed to correct with fluid bolus. Will provide maintenance fluid and see patient again in am. Hold BP medications lisinopril. - Monitor Uout. Chronic HTN: Hold lisinopril while in hospital. Monitor vitals for BP and HR with telemetry. DM 2 A1C goal <7%. Last A1C <7% within last 40 days. Not on metformin. Continue home meds, 25 units basal insulin at night. Chronic Diabetes. We have reviewed home medications. Reviewed goals of DM. Pneumovax up to date. Reviewed DM eye complications. We reviewed current status of nephropathy, Retinopathy, Neuropathy. Discussed need to f/u with optometry/ ophthalmology annually to eval for DM nephropathy. We discussed current meds, reviewed A1C. He is <7. His BP is <140/90. he is on statin. At Goal BP <140/90 - Accucheck 4x daily. - Call with >250. - No insulin regular if <250. - Resume home doses of insulin. - Weight control discussed with patient. Goal 1 BMI <30. Goal 2 BMI 19-24.9. Hyponatremia: Corrects to 132. Monitor for true reading <130. Skin Breakdown: Chronic. Roll q 2 hours. Bandage regions on back/left buttock. - Await skin/wound culture DVT prophylaxis: FLIP/SCD as ?bleeding per ED assessment. Diet: ADA 1800kcal diet. GI Prophy: Home medication resumed for PPI but nothing specifically for this problem. Histoyr of CHF: Gentle hydration. PRO BNP mildly elevated. CMP in am. Consider echo but as OP. Maintenance fluids: 100ml/hr. Disposition: Admit to inpatient, gentle rehydration,antiemetics, abx cipro/flagyl x 5 days. We will reasess patient in am with labs/overnight tele, input and output. We will consider changing to IV abx if the patient still has emesis. We will await cultures, await stool studies. FLIP/SCD for DVT prophy. Patient is full code. >70 minutes spent on admission today not including documentation.
[2020-04-11] MEDS ORDERED: DESYREL PO SCH (21:00)
[2020-04-11] MEDS: CIPRO PO SCH (21:16)
[2020-04-11] MEDS: NORCO 7.5-325 PO SCH (21:35)
[2020-04-11] MEDS: FERROUS SULFATE PO SCH (21:35)
[2020-04-11] MEDS: ATIVAN PO SCH (21:35)
[2020-04-11] MEDS: FLAGYL PO SCH (21:35)
[2020-04-11] MEDS: LANTUS SUBCUT SCH (21:36)
[2020-04-11] MEDS ORDERED: SODIUM CHLORIDE 1,000 ML IV SCH (22:30)
[2020-04-12 05:28] LABS: HEMOGLOBIN 11.9 g/dl (14.0-18.0); MEAN CORPUSCULAR HGB CONC 33.1 (31.8-35.4); MEAN CORPUSCULAR VOLUME 85.5 fl (80.0-94.0); PLATELET COUNT 269 10^3/uL (140-440); RDW COEFFICIENT OF VARIATION 16.1 % (11.6-14.8); RED BLOOD COUNT 4.21 10^6/ul (4.70-6.10); WHITE BLOOD COUNT 28.56 K/ul (4.2-10.2)
[2020-04-12 05:37] LABS: ANISOCYTOSIS NOT PRESENT (NOT PRESENT)
[2020-04-12 05:44] LABS: ALANINE AMINOTRANSFERASE 17.8 U/L (0-50); ALBUMIN 3.32 g/dL (3.5-5.0); ALKALINE PHOSPHATASE 92.9 U/L (56-119); ASPARTATE AMINO TRANSFERASE 21.3 U/L (17-59); BILIRUBIN,TOTAL 0.48 mg/dL (0.2-1.3); BLOOD UREA NITROGEN 32.6 mg/dL (9-20); CALCIUM 8.87 mg/dL (8.4-10.2); CARBON DIOXIDE 24.3 mmol/L (22-30.0); CHLORIDE 96.1 mmol/L (98-107); CREATININE 1.49 mg/dL (0.60-1.10); GLUCOSE 186.5 mg/dL (74-106); SODIUM 128.5 mmol/L (134.5-145); TOTAL PROTEIN 6.67 g/dL (6.3-8.2)
[2020-04-12] MEDS: CIPRO PO SCH (05:57)
[2020-04-12] MEDS: FLAGYL PO SCH ×3 (05:57→20:35)
[2020-04-12] MEDS ORDERED: SODIUM CHLORIDE 250 ML IV ONE ×2 (07:09→07:13)
[2020-04-12] MEDS ORDERED: DESYREL PO PRN ×2 (07:14→07:30)
[2020-04-12] MEDS ORDERED: SODIUM CHLORIDE 500 ML IV ONE (07:30)
[2020-04-12] MEDS: ZOFRAN 4 MG/2 ML IVP PRN (07:58)
[2020-04-12] MEDS: ASPIRIN CHEWABLE PO SCH (08:19)
[2020-04-12] MEDS: PRILOSEC PO SCH (08:20)
[2020-04-12] MEDS: TRADJENTA PO SCH (08:20)
[2020-04-12] MEDS: NORCO 7.5-325 PO SCH ×3 (08:21→20:36)
[2020-04-12] MEDS: LIPITOR PO SCH (08:21)
[2020-04-12] MEDS: FERROUS SULFATE PO SCH ×2 (08:22→20:35)
[2020-04-12] MEDS: ATIVAN PO SCH ×2 (08:26→20:36)
[2020-04-12] MEDS: LEVAQUIN 500 MG/100 ML D5W 500 MG/100 ML BAG IV SCH ×2 (08:28→08:58)
[2020-04-12] MEDS: VORTIOXETINE 10 MG PO SCH (08:33)
[2020-04-12] MEDS ORDERED: NON-FORMULARY MEDICATION (Fluticasone Furoate-Vilanterol [Breo Ellipta] 100-25 mcg/dose Bl IH SCH (09:00)
[2020-04-12] MEDS: SYMBICORT 160-4.5 MCG INHALER IH SCH ×2 (09:10→20:36)
--- NOTE | 2020-04-12 09:26 | PCM.PROG ---
Date Seen by Provider: 04/12/20 Time Seen by Provider: 07:10 Subjective: 74 yo CM HD #2 [place] resident, bedbound, deconditioning, chronic poor health, poor dentition, known history of DM, HTN, HLD, depression, anxiety, GERD presented to hospital 04/11/20 with hypotension, N/V/D, hypothermia, hyponatremia and had met SIRS criteria. The patient was seen by DR. Clayton, admitted to [place] after fluid hydration/bolus, and IV abx. CT Abdomen/pelvis (NON CONTRAST) showed ?UTI/thickening of bladder, as well as ?colitis. Additionally, he had open skin shearing chronically. Dx with colitis and suspected UTI on imaging. Patient is a poor historian, has no close family and health is poor/ailing in general. Typically will lie in bed /, will fight nursing against showering/getting out of bed at [place]. [facility]CI/known patient to me. This am he is resting in bed again, FLIP/SCD in place and has no c/o other than emesis x 2 overnight and no appetite. I talked with am nursing, I talked with overnight nurse, reviewed telemetry, discussed care with case management. Patient and I had a lengthy discussion about end of life care and his code status. He wishes to remain a full code, aware of risks of CPR/intubation. I feel he is capable of making this decision after discussion. I discussed if worsening is he okay w ith transfer to larger hospital and he noted he was okay with this option if needed. He is AAOx3, aware of current events, conversant. he mentioned that he would like to try to contact son James Owen if able. We will try to get this #. He and I reviewed my H+P, reviewed overnight documentation from nurses as well. The patient labs this am showed sodium 128.5 (corrects to 130 based on glucose 186.5). This is mildly worse than yesterday but still ~130 based on correction. Potassium remains stable at 4.34. Kidney function is mildly worse at 1.49 and glucose is 186.5. Nursing only noted 100 cc out overnight, which is not ideal and may be KEILY secondary to hypovolemia from yesterday. CBC showed 28.56 for WBC, up quite a bit from yesterday. 93% neutrophils on differential support demargination, support hemoconcentration. He has no e/o left shift at this time. he has not been on steroids, did not get contrast, no new nephrotoxic drugs specifically. Hemoglobin is stable at 11.9 and Plt stable at 269. cultures for urine no growth, cultures for skin too young to read, BC not yet back. He had 1 dose of rocephin in ED, 1 dose of cipro in ED and 1 dose of flagyl in ED. I have ordered cipro 500 BID pO this am but he had Emesis x 2 reported over night. I will change this to levaquin 500 IV daily. Reviewed the overnight nursing notes and he had #2 emesis reported by 0634, No reported nausea and no further emesis since that time. He remains afebrile, pulse 76, rr 20, Po2 96% with BP of 71/50 this am. He has had fluids running at 100ml/hour which is just under his maintenance rate based on his ideal weight 156lb (111ml/hour) and adjusted weight of 200lb (131 ml/hour). I will increase his fluids to 120ml/hr. He has only had 100ml out of urine, concern for oliguria. We will check I&O more closely, discussed with nursing this am. Will bolus another 500 and repeat BMP at 9 and 11 am. Will increase fluids to 120ml/hour as he is not taking in much fluid. BP through the night showed 83/52, 72/44, 71/50. He has tolerated the SCD well. NO new skin rash, no c/o pain in head/neck/arms/legs/chest. Rash on legs chronically is unchanged. SCD in place this am. 0135 this am he had emesis brown colored no reported pain. He has no c/o urinary issues, no diarrhea since admit, afebrile, no frequency/hesitancy, burning. BP remains low today. As noted, I will bolus another 500ml NS, will increase flow of his fluids from 100 to 120, will change his cipro po to levaquin 500 IV. Will check BMP again at 9 am and 11 am and monitor sodium closely. Should we need to improve sodium, we will consider 3%NS with 100ml and repeat this as needed to keep sodium >130. However, if not producing urine, I will likely not complete the hypertonic saline. Considered FeNA testing but without urine production, this is limited. Looking and talking to the patient, he feels fine. His labs look worse than he appears clinically. Chronically poor health, chronic poor dentition as noted above. Glucose seems reasonable at present. I will add sliding scale insulin/correctional insulin. He reports no pain, no fever, no new issues. Awaiting wound culture, urine culture, blood culture. Continue abx. Checked BMP labs at 0900 after 500 cc bolus. Sodium unchanged at 128.5. K+ 4.39. BUN 34 an dCr increased from 1.49 to 1.68. Glucose 234.5 with corrected sodium right at 130. Patient BP repeated 90/60, pulse 88, rr 10-12 and Temp 97.7. Tele rechecked and patient Sinus arrhythmia. Repeated check at 1100 with BMP. Sodium 128.2, glucose 204.4 corrected just at 129, K+_ 4.34, BUN up to 35.5 from 34 and creatinine up to 1.77. Talked to case management. Would like to get bladder scan, would like to place calvo. Strict I+O to be monitored. I checked on patient again at 12:10 and he still feels fine, no appetite, no e/o fluid overload, no other symptoms to report. No new pain, no SOA, no cough. He has not had any emesis since this am, no diarrhea since this am. I suspect ?hyptoensive state had led to some KEILY. Fluid hydration is solis. CT did not show any obstruction but he did have thickening of the bladder. Will try calvo and that way we can monitor output. Oliguria is common with KEILY. CT were completed without contrast. He has had 200ml output documented since 8pm last night. REVIEW OF SYMPTOMS: (Positives bolded) General: weight loss, fever, chills, night sweats, fatigue, appetite loss, [place] Resident, Poor mobility, Rarely OOB HEENT: blurry vision, eye pain, eye discharge, dry eyes, decreased vision, sore throat, tinnitus, bloody nose, hearing loss, sinus pain/pressure, ear pain/pressure. POOR DENTITION Respiratory: shortness of breath, cough, hemoptysis, wheezing, pleurisy, Cardiovascular: chest pain, PND, palpitation, edema, orthopnea, syncope, swelling of extremities Gastro: Nausea (RESOLVED), vomiting (x2 this am resolved by 12pm), diarrhea (resolved), hematemesis, abdominal pain, constipation *Chronically* Genito: hematuria, dysuria, glycosuria, hesitancy, frequency, incontinence uses urinal only. Musckelo: Arthralgia, myalgia chronically (knees), muscle weakness, joint swelling, Not using NSAID Skin: rash/breakdown back/buttock CUltures pending., pruritis, sores (shearing bed sores noted buttock, back, skin breakdown in abdominal folds), skin thickening (bilateral LE hemosiderin staining stasis dermatitis), change in wart/mole, itching, rash, new lesions, pruritus, nail changes Neuro: Migraine, numbness, ataxia, tremor, vertigo, weakness, memory loss, Irritability, dizziness Endocrine: excessive thirst, polyuria, cold intolerance, heat intolerance, goiter, DM Psychiatric: depression, anxiety, anti-depressants, alcohol abuse, drug abuse, insomnia, change in sleep pattern and mood changes Heme/lymph: easy bruising, bleeding gums, blood clots, swollen glands, lymphedema, Allergic/immune: allergic rhinitis, hay fever, asthma, hives Objective: Vital Signs - 24 hr 04/11/20 16:39 04/11/20 18:00 04/11/20 20:27 Temperature 97.7 F 97.7 F 97.7 F Pulse Rate 85 85 85 Respiratory Rate 18 18 18 Blood Pressure 108/60 108/60 O2 Sat by Pulse Oximetry 99 99 99 04/11/20 22:00 04/12/20 02:00 04/12/20 06:00 Temperature 99.0 F 97.8 F 97.5 F L Pulse Rate 104 H 81 76 Respiratory Rate 22 20 20 Blood Pressure 83/52 L 72/44 L 71/50 L O2 Sat by Pulse Oximetry 92 L 95 96 04/12/20 09:43 Temperature 97.7 F Pulse Rate 88 Respiratory Rate 10 L Blood Pressure 90/60 O2 Sat by Pulse Oximetry 92 L Constitutional: Appearance-No acute distress, Consistent with stated age. Orientation- Oriented x 3, alert. GCS 15. Gait- Bed bound. Build and Nutrition- [obesity BMI 39.3] General- Patient is pleasant and cooperative with the interview and exam. Integumentary: General-No generalized rashes, ulcers or lesions on chest, face, UE bilaterally, axilla, groin, thighs. Hemosiderin staining, venous stasis chronically bilateral shins. Shearing lesion upper back chronically from not getting out bed. Similarly left buttock from not getting out of bed. No sacral decub, no heel decub. Breakdown early in abdominal folds. Rolling, skin prep, care to areas of skin contact. Palpation- Normal skin moisture/turgor. Skin is warm to touch, appropriate. Capillary refill is normal bilateral Upper and lower extremity. No e/o secondary infection. Wound cultures obtained. Patient on cipro. Head/Neck: Head- normocephalic and atraumatic. Neck- without visible/palpable lumps or pulsations. Palpation- No bony tenderness about head/neck along frontal, occipital, temporal, parietal, mastoid, jawline, zygoma, orbit or any other location. NO temporal artery tenderness. No TMJ tenderness. Neck Supple. Thyroid-No thyromegaly, no nodules ENMT: Pinna- normal without tenderness or erythema. External auditory canal Left- normal without erythema or discharge, no excessive cerumen. External auditory canal Right-normal without erythema or discharge, no excessive cerumen. TM left- Marquez/pearly, normal light reflex and anatomy TM Right- Marquez/pearly, normal light reflex and anatomy Hearing Assessment-normal to conversational speech. Nose and sinus- No sinus tenderness along frontal/maxillary region. External appearance normal and midline. Nares- bilateral quiet airflow, no discharge. Nasal mucosa- No bleeding noted and no ulcerations observed. Dane, moist. Turbinates non boggy. Lips- normal color, moist without cracks/lesions Oral Cavity/Palate- hard/soft palate intact without lesions, oral mucosa pink and moist. Tongue normal midline. Oropharynx- no pharyngeal erythema, Uvula midline. No post nasal drip. No exudate. Salivary glands- Non tender to palpation CHEST/LUNG: Inspection- symmetric chest wall no pectus deformity. Decreased effort, shallow breathing, no distress, no use of accessory muscles. Palpation- nontender sternum, ribline. No abnormal pulsations. Auscultation- Breath sounds diminished/distant throughout all lung lewis. Normal tracheal sounds, Normal bronchial sounds overlying sternum, Bronchovessicular sounds normal between scapulae posteriorly, Normal vessicular breath sounds heard throughout periphery. Lungs are clear today. Adventitious sounds- scattered wheezes, fine crackling and rare rhonchi. CARDIOVASCULAR: Carotid artery- normal, no bruits or abnormal pulsations. Jugular vein- no pulsations. Palpation/Percussion- Normal PMI, no palpable thrill Auscultation- Distant heart sounds. Normal rate at time of eval. No murmur noted in supine positions. Extremities- no cyanosis, edema, increased warmth. ABDOMEN: Inspection- normal and no visible pulsations. Normal contour. Auscultation- Bowel sounds remain mildly hypoactive, no abdominal bruits. Palpation/Percussion- soft, mild generalized tenderness. No rebound, no guarding, no rovsing, no mcburney, no obturator/psoas, no e/o hepatic locus. Liver 3 fingers below costal margin. Somewhat limited exam due to habitus. no jar tenderness, no masses. Liver-no hepatomegaly, Spleen no splenomegaly, Hernias- none. Rectal not examined. No suprapubic tenderness. (BLADDER SCAN ORDERED) Peripheral Vascular: Upper extremity Left- Normal temperature with pink nailbeds and no ulcerations. Upper extremity Right- Normal temperature with pink nailbeds and no ulcerations. Lower extremity- Cool temperature symmetrical. Hemosiderin changes, chronic stasis dermatitis appearance bilateral LE. FLIP/SCD in place. Musculoskeletal: Generalized-No generalized swelling or edema of extremities, no digital clubbing or cyanosis, neurovascularly intact all four extremities. Weakness in general from deconditioning. hip flexors weak. Normal sensation to light touch. Minimal movement, minimal activity. Neurological: General- Moves all 4 extremities slowly, reduced str and decreased general conditioing. Symmetrical face and body posture. Cranial nerves- individually evaluated II-XII and intact. PERRLA, Normal EOMI, visual/special senses appear intact, Face is symmetrical and normal sensation/movement, normal tongue, normal strength/posture of neck musculature. Reflexes- intact with DTR 2+ patellar, Achilles, bicep, Strength- 5/5 bilateral UE and LE. Soft touch- intact bilateral UE and LE. Temperature sensation- intact bilateral UE and LE. Neuropsych: Oriented- Person, place, time. (AAOx3), Mood/affect- normal and congruent. Able to articulate well. Speech-Normal speech, normal rate, normal tone, normal use of language, volume and coherence. Thought content- normal with ability to perform basic computations Associations- intact, no SI/HI, no hallucinations, delusions, obsessions. Judgment/insight- Appropriate. Memory- Recall intact, remote and recent memory intact. Lymphatic: Head/Neck- normal size and non tender to palpation. Laboratory Results - last 24 hr 04/11/20 04/11/20 04/11/20 12:20 12:40 12:48 WBC 18.63 H RBC 4.30 L Hgb 11.9 L Hct 36.7 L MCV 85.3 MCH 27.7 MCHC 32.4 RDW Coeff of Scott 15.9 H Plt Count 247 Immature Gran % (Auto) 0.9 Neut % (Auto) 87.2 H Lymph % (Auto) 5.3 L Pine % (Auto) 6.2 Eos % (Auto) 0.1 Baso % (Auto) 0.3 Neut # (Auto) 16.3 H Lymph # (Auto) 1.0 Pine # (Auto) 1.2 Eos # (Auto) 0.0 Baso # (Auto) 0.1 Immature Gran # (Auto) 0.2 Neutrophils % (Manual) Lymphocytes % (Manual) Monocytes % (Manual) Anisocytosis Sodium Potassium Chloride Carbon Dioxide Anion Gap BUN Creatinine Estimated GFR (MDRD) BUN/Creatinine Ratio Glucose Lactic Acid Calcium Total Bilirubin AST ALT Alkaline Phosphatase Troponin I NT-Pro-B Natriuret Pep 761.000 H Total Protein Albumin Globulin Albumin/Globulin Ratio Lipase 29.8 Procalcitonin Urine Color Urine Clarity Urine pH Ur Specific Almond Urine Protein Urine Glucose (UA) Urine Ketones Urine Blood Urine Nitrite Urine Bilirubin Urine Urobilinogen Ur Leukocyte Esterase Urine Microscopic RBC Urine Microscopic WBC Ur Squamous Epith Cells Urine Bacteria Stl Occult Blood (IFOB) Stool Occult Blood #2 Stool Occult Blood #3 04/11/20 04/11/20 04/11/20 12:48 12:48 12:48 WBC RBC Hgb Hct MCV MCH MCHC RDW Coeff of Scott Plt Count Immature Gran % (Auto) Neut % (Auto) Lymph % (Auto) Pine % (Auto) Eos % (Auto) Baso % (Auto) Neut # (Auto) Lymph # (Auto) Pine # (Auto) Eos # (Auto) Baso # (Auto) Immature Gran # (Auto) Neutrophils % (Manual) Lymphocytes % (Manual) Monocytes % (Manual) Anisocytosis Sodium 129.6 L Potassium 4.37 Chloride 96.0 L Carbon Dioxide 24.7 Anion Gap 13.27 BUN 26.6 H Creatinine 1.02 Estimated GFR (MDRD) 71.00 BUN/Creatinine Ratio 26.07 Glucose 226.3 H Lactic Acid 0.69 L Calcium 8.91 Total Bilirubin 0.79 AST 36.6 ALT 20.8 Alkaline Phosphatase 118.3 Troponin I < 0.012 NT-Pro-B Natriuret Pep Total Protein 7.01 Albumin 3.51 Globulin 3.50 Albumin/Globulin Ratio 1.00 Lipase Procalcitonin 0.12 Urine Color Urine Clarity Urine pH Ur Specific Almond Urine Protein Urine Glucose (UA) Urine Ketones Urine Blood Urine Nitrite Urine Bilirubin Urine Urobilinogen Ur Leukocyte Esterase Urine Microscopic RBC Urine Microscopic WBC Ur Squamous Epith Cells Urine Bacteria Stl Occult Blood (IFOB) Stool Occult Blood #2 Stool Occult Blood #3 04/11/20 04/11/20 04/12/20 13:20 16:20 05:05 WBC 28.56 H D RBC 4.21 L Hgb 11.9 L Hct 36.0 L MCV 85.5 MCH 28.3 MCHC 33.1 RDW Coeff of Scott 16.1 H Plt Count 269 Immature Gran % (Auto) Neut % (Auto) Lymph % (Auto) Pine % (Auto) Eos % (Auto) Baso % (Auto) Neut # (Auto) Lymph # (Auto) Pine # (Auto) Eos # (Auto) Baso # (Auto) Immature Gran # (Auto) Neutrophils % (Manual) 93.0 H Lymphocytes % (Manual) 3.0 L Monocytes % (Manual) 4.0 Anisocytosis Not present Sodium Potassium Chloride Carbon Dioxide Anion Gap BUN Creatinine Estimated GFR (MDRD) BUN/Creatinine Ratio Glucose Lactic Acid Calcium Total Bilirubin AST ALT Alkaline Phosphatase Troponin I NT-Pro-B Natriuret Pep Total Protein Albumin Globulin Albumin/Globulin Ratio Lipase Procalcitonin Urine Color Brown Urine Clarity Turbid Urine pH 5.0 Ur Specific Almond 1.020 Urine Protein 2+ H Urine Glucose (UA) Negative Urine Ketones 1+ H Urine Blood 3+ H Urine Nitrite Negative Urine Bilirubin 2+ H Urine Urobilinogen 2.0 H Ur Leukocyte Esterase 3+ H Urine Microscopic RBC Tntc Urine Microscopic WBC Tntc Ur Squamous Epith Cells Not present Urine Bacteria 2+ Stl Occult Blood (IFOB) Positive Stool Occult Blood #2 No specimen received Stool Occult Blood #3 No specimen received 04/12/20 04/12/20 04/12/20 05:05 09:15 11:44 WBC RBC Hgb Hct MCV MCH MCHC RDW Coeff of Scott Plt Count Immature Gran % (Auto) Neut % (Auto) Lymph % (Auto) Pine % (Auto) Eos % (Auto) Baso % (Auto) Neut # (Auto) Lymph # (Auto) Pine # (Auto) Eos # (Auto) Baso # (Auto) Immature Gran # (Auto) Neutrophils % (Manual) Lymphocytes % (Manual) Monocytes % (Manual) Anisocytosis Sodium 128.5 L 128.5 L 128.2 L Potassium 4.34 4.39 4.34 Chloride 96.1 L 96.7 L 95.4 L Carbon Dioxide 24.3 22.6 23.6 Anion Gap 12.44 13.59 13.54 BUN 32.6 H 34.0 H 35.5 H Creatinine 1.49 H 1.68 H 1.77 H Estimated GFR (MDRD) 46.00 40.00 38.00 BUN/Creatinine Ratio 21.87 20.23 20.05 Glucose 186.5 H 234.5 H 204.4 H Lactic Acid Calcium 8.87 8.42 8.58 Total Bilirubin 0.48 AST 21.3 ALT 17.8 Alkaline Phosphatase 92.9 D Troponin I NT-Pro-B Natriuret Pep Total Protein 6.67 Albumin 3.32 L Globulin 3.35 Albumin/Globulin Ratio 0.99 Lipase Procalcitonin Urine Color Urine Clarity Urine pH Ur Specific Almond Urine Protein Urine Glucose (UA) Urine Ketones Urine Blood Urine Nitrite Urine Bilirubin Urine Urobilinogen Ur Leukocyte Esterase Urine Microscopic RBC Urine Microscopic WBC Ur Squamous Epith Cells Urine Bacteria Stl Occult Blood (IFOB) Stool Occult Blood #2 Stool Occult Blood #3 (1) prison resident: Status: Acute Code(s): Z59.3 - Problems related to living in residential institution SNOMED Code(s): 384330354 (2) SIRS (systemic inflammatory response syndrome): Status: Acute Code(s): R65.10 - Systemic inflammatory response syndrome (SIRS) of non-infectious origin without acute organ dysfunction SNOMED Code(s): 749161080 (3) Dehydration: Status: Acute Code(s): E86.0 - Dehydration SNOMED Code(s): 56164757 (4) Colitis: Status: Acute Code(s): K52.9 - Noninfective gastroenteritis and colitis, unspecified SNOMED Code(s): 02259310 (5) Skin breakdown: Status: Acute Code(s): L90.9 - Atrophic disorder of skin, unspecified SNOMED Code(s): 419516535 (6) Type 2 diabetes mellitus with hemoglobin A1c goal of less than 7.0%: Status: Acute Code(s): E11.9 - Type 2 diabetes mellitus without complications SNOMED Code(s): 00702119 (7) Essential hypertension: Status: Acute Code(s): I10 - Essential (primary) hypertension SNOMED Code(s): 05759726 (8) Hypotension: Status: Acute Code(s): I95.9 - Hypotension, unspecified SNOMED Code(s): 80411807 (9) Physical deconditioning: Status: Acute Code(s): R53.81 - Other malaise SNOMED Code(s): 58717122894490 (10) Hyponatremia: Status: Acute Code(s): E87.1 - Hypo-osmolality and hyponatremia SNOMED Code(s): 46931038 (11) KEILY (acute kidney injury): Status: Acute Code(s): N17.9 - Acute kidney failure, unspecified SNOMED Code(s): 36940729 (12) Leukocytosis: Status: Acute Code(s): D72.829 - Elevated white blood cell count, unspecified SNOMED Code(s): 119736491 (13) Oliguria: Status: Acute Code(s): R34 - Anuria and oliguria SNOMED Code(s): 32751204 Plan: Assisted Resident, SIRS, N/V/D suspect gastroenteritis vs colitis: BP remains low, bolus 500ml x 1 given, rechecked labs and sodium stable, BP did increase to 90/60. I have ordered a second bolus. Talked with nursing about this. Repeat labs at 11am showed sodium stable, creatinine continues to increase. No further emesis/diarrhea since this am. I am now concerned for oliguria s/p KEILY. Leukocytosis can be related to demargination/emesis and hemoconcentration. Fluid maintenance increased from 100 to 120ml/hour. [place] body weight for patient is 156, adjusted is 200lb, while actual is 266lb. He has known history of CHF is ~2800 ml net + for fluids. I do not want him to be net fluid +, and oliguric. I talked with case management around 12 pm today and we will get a bladder scan and place a calvo, monitor uout closely and consider FeNA if producing urine. He looks clinically unchanged from the previous visits at the residential but labs suggest hypotensive KEILY and increasing creatinine. Continue to monitor on inpatient status, continue IV levaquin, PO flagyl. We will adjust dose based on crcl with time. For now continue 500mg IV daily for levaquin and 500mg q8 hours for flagyl. We will continue to await cultures of blood, urine, skin/wound. Vitals look better. SIRS criteria met initially, but he seemed to be more hypotensive than septic. We will continue to monitor (procalc and LA negative). Tele monitored, he has had some 1st degree AV, has had some sinus arrythmia but is in SA now. Imaging again reviewed consistent with colitis and emesis/diarrhea with dehydration consistent as well. Bladder thickening on CT, will get bladder scan and monitor I+O closely. Monitor hyponatremia. No further stools, the initial ?Blood in stool may have been from his iron supplement. Repeat labs today at 3pm with CBC and BMP. in am tomorrow CMP and CBC as well. WE will continue to f/u with results. If worsening, consider transfer to facility with nephrology and or GI. Still w/ Concern for colitis, concern for UTI in male, oligiruia, KEILY. He reports feeling a little better, less abd pain, no further emesis/diarrhea when I checked on him. Awaiting Cdiff and stool PCR. - Admit to inpatient, telemetry, monitored bed. - Maintenance fluids 120ml/hour NS (increased from 100ml/hr) - CBC/CMP today 3 pm and again tomorrow am - I+O q 4 hours strict - Await urine culture - Await blood/wound culture. - Await Cdiff and stool pcr. - Anti emetics PRN - Diet: ADA 1800kcall diabetic. - levaquin IV 500 mg to continue. - Oral flagyl, consider changing to IV as well if not tolerating intake. - Bladder scan - Place calvo Hypotension: Seemed to correct with fluid bolus x1, will give 1 more. Will provide maintenance fluid and see patient again in am. Hold BP medications lisinopril. - Monitor Uout. Chronic HTN: Hold lisinopril while in hospital. Monitor vitals for BP and HR with telemetry. DM 2 A1C goal <7%. Last A1C <7% within last 40 days. Continue home meds, 25 units basal insulin at night. Will add sliding scale. - Accucheck 4x daily. - Call with >250. - I will add insulin regular 1 unit per 50 above 200. - Resume home doses of insulin. Hyponatremia: Corrects to 130. Monitor for true reading <130. Skin Breakdown: Chronic. Roll q 2 hours. Bandage regions on back/left buttock. - Await skin/wound culture DVT prophylaxis: FLIP/SCD as ?bleeding per ED assessment. Diet: ADA 1800kcal diet. GI Prophy: Home medication resumed for PPI but nothing specifically for this problem. History of CHF: rehydration. PRO BNP mildly elevated at admit. Monitor CBC/CMP and BMP. Despite net + 2800 ml he has no crackling, no fluid in legs, no edema. - Daily weights. Maintenance fluids: 120ml/hr. Disposition: Admit to inpatient, continue rehydration,antiemetics, abx levaquin/flagyl x 5 days. We will reasess patient at 3pm today with CBC/BMP. Monitor WBC, monitor urine out put. Will f/u with patient today regarding bladder scan/calvo and monitor for oliguria. Oliguria is concerning post hyptoension/KEILY. Continue to monitor labs/tele, input and output. We will consider referral to nephrology if Creatinine and GFR continue to progress negatively. BP is stable at 90/60. This is better after a bolus. Will bolus again. Will continue to monitor for s/sx of fluid overload. We will await cultures, await stool studies. FLIP/SCD for DVT prophy. Patient is full code. >35 minutes spent on admission today not including documentation from 7-8am. Repeated evaluation from 12:10-12:30.
[2020-04-12 09:33] LABS: CALCIUM 8.42 mg/dL (8.4-10.2); CARBON DIOXIDE 22.6 mmol/L (22-30.0); CHLORIDE 96.7 mmol/L (98-107); CREATININE 1.68 mg/dL (0.60-1.10); GLUCOSE 234.5 mg/dL (74-106); SODIUM 128.5 mmol/L (134.5-145)
[2020-04-12] MEDS ORDERED: SODIUM CHLORIDE 500 ML IV STA (10:42)
[2020-04-12 12:03] LABS: BLOOD UREA NITROGEN 35.5 mg/dL (9-20); CALCIUM 8.58 mg/dL (8.4-10.2); CARBON DIOXIDE 23.6 mmol/L (22-30.0); CHLORIDE 95.4 mmol/L (98-107); CREATININE 1.77 mg/dL (0.60-1.10); GLUCOSE 204.4 mg/dL (74-106); SODIUM 128.2 mmol/L (134.5-145)
[2020-04-12] MEDS ORDERED: URO-JET MUCOUSMEMB STA (13:09)
[2020-04-12] MEDS: SODIUM CHLORIDE 1,000 ML IV SCH ×3 (13:42→23:10)
[2020-04-12 16:01] LABS: ANISOCYTOSIS NOT PRESENT (NOT PRESENT); HEMATOCRIT 33.1 % (42.0-52.0); HEMOGLOBIN 10.5 g/dl (14.0-18.0); MEAN CORPUSCULAR HGB CONC 31.7 (31.8-35.4); MEAN CORPUSCULAR VOLUME 86.9 fl (80.0-94.0); PLATELET COUNT 223 10^3/uL (140-440); RDW COEFFICIENT OF VARIATION 16.1 % (11.6-14.8); RED BLOOD COUNT 3.81 10^6/ul (4.70-6.10); WHITE BLOOD COUNT 20.26 K/ul (4.2-10.2)
[2020-04-12 16:14] LABS: BLOOD UREA NITROGEN 37.3 mg/dL (9-20); CALCIUM 8.29 mg/dL (8.4-10.2); CARBON DIOXIDE 24.1 mmol/L (22-30.0); CHLORIDE 95.7 mmol/L (98-107); CREATININE 1.62 mg/dL (0.60-1.10); GLUCOSE 105.6 mg/dL (74-106); SODIUM 127.5 mmol/L (134.5-145)
--- NOTE | 2020-04-12 17:30 | PCM.PROG ---
Personally checked on patient at 530 pm. He is eating a hamburger, eating potato wedges, ate some chicken broth and loved it. he has been chugging water all day without eating salt and now sodium is worse. Labs rechecked 20.26 wbc down from 28.56, hgb 10.5 down from 11.9, plt 223. All decreased suggestive of hemodilution. Sodium 127.5 K+ 4.10, cl 95.7, cr 1.62 down from 1.77. Glucose 105.6 and stable. Never needed to start the insulin. Calcium listed at 8.29. Will get repeat in am so I can get albumin. Recheck again in am. Monitor overnight. No further emesis, no further diarrhea. Eating well, feeling better. 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 Discussed with nursing ot try to limit his fluid intake overnight for plain water. Give him some chicken broth again in a few hours for salt. Will back down on fluids to 115 ml/hour. He has another 150ml out in addition to ~350 out. Urine output is picking up nicely. I believe he is heading in the right direction.
[2020-04-12] MEDS: NYSTOP POWDER TP SCH (20:34)
[2020-04-12] MEDS: DESYREL PO SCH (20:35)
[2020-04-12] MEDS: LANTUS SUBCUT SCH (20:37)
[2020-04-13 05:50] LABS: BASOPHILS % (AUTO) 0.3 % (0.0-3.0); EOSINOPHILS # (AUTO) 0.1 K/ul (0.0-0.7); EOSINOPHILS % (AUTO) 0.5 % (0.0-7.0); HEMATOCRIT 31.5 % (42.0-52.0); IMMATURE GRANULOCYTE # (AUTO) 0.1 (0.0-1.0); IMMATURE GRANULOCYTE % (AUTO) 0.7 % (0.0-5.0); LYMPHOCYTES # (AUTO) 2.3 K/uL (0.60-3.4); LYMPHOCYTES % (AUTO) 15.5 (10.0-50.0); MEAN CORPUSCULAR HGB CONC 31.7 (31.8-35.4); MEAN CORPUSCULAR VOLUME 87.5 fl (80.0-94.0); MONOCYTES # (AUTO) 1.1 K/uL (0.4-2.0); MONOCYTES % (AUTO) 7.7 (0-10); NEUTROPHILS # (AUTO) 11.1 K/ul (2.0-6.9); NEUTROPHILS % (AUTO) 75.3 % (42.2-75.2); PLATELET COUNT 210 10^3/uL (140-440); RDW COEFFICIENT OF VARIATION 16.2 % (11.6-14.8); WHITE BLOOD COUNT 14.76 K/ul (4.2-10.2)
[2020-04-13] MEDS: FLAGYL PO SCH ×3 (05:55→20:31)
[2020-04-13 06:03] LABS: ALANINE AMINOTRANSFERASE 13.4 U/L (0-50); ALBUMIN 2.62 g/dL (3.5-5.0); ALKALINE PHOSPHATASE 65.4 U/L (56-119); ASPARTATE AMINO TRANSFERASE 19.1 U/L (17-59); BILIRUBIN,TOTAL 0.18 mg/dL (0.2-1.3); BLOOD UREA NITROGEN 40.3 mg/dL (9-20); CALCIUM 8.14 mg/dL (8.4-10.2); CARBON DIOXIDE 23.4 mmol/L (22-30.0); CHLORIDE 99.4 mmol/L (98-107); CREATININE 1.71 mg/dL (0.60-1.10); GLUCOSE 85.2 mg/dL (74-106); SODIUM 129.4 mmol/L (134.5-145); TOTAL PROTEIN 5.58 g/dL (6.3-8.2)
[2020-04-13] MEDS: PRILOSEC PO SCH (06:04)
--- NOTE | 2020-04-13 07:29 | PCM.PROG ---
Date Seen by Provider: 04/13/20 Time Seen by Provider: 07:15 Subjective: 74 yo CM HD #3 Antibiotics Day #3 Levaquin IV 500mg daily, flagyl 500 mg PO q 8 hours. [facility] resident, bedbound, deconditioning, chronic poor health, poor dentition, known history of DM, HTN, HLD, depression, anxiety, GERD presented to hospital 04/11/20 with hypotension, N/V/D, hypothermia, hyponatremia and had met SIRS criteria. The patient was seen by DR. Clayton, admitted to nd after fluid hydration/bolus, and IV abx. Yesterday labs were monitored several times. Oliguria is present, bladder scan was completed 0 ml was present calvo placed and urine started flowing. The patient had improved urine output after that point. He is feeling fine, continued to do okay, no N/V/D after 1200 yesterday through last night. Personally checked on patient at 530 pm last night. He was eating a hamburger, eating potato wedges, ate some chicken broth and loved it. he has been chugging water all day without eating salt and sodium was worse. Labs rechecked yesterday pm showed CBC: 20.26 wbc down from 28.56, hgb 10.5 down from 11.9, plt 223. All decreased suggestive of hemodilution. Sodium 127.5 K+ 4.10, cl 95.7, cr 1.62 down from 1.77. Glucose 105.6 and stable. Never needed to start the insulin. Calcium listed at 8.29. I wanted to repeat levels in am so I can get albumin. No further emesis, no further diarrhea as of 04/13/20 7:25 am. He was Eating well, feeling better. 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 Discussed with nursing to try to limit his fluid intake overnight for plain water. Give him some chicken broth again in a few hours for salt. Backed down on fluids to 115 ml/hour. Urine output seemed to be picking up. This am labs showed improved sodium from 127.5 to 129.4. BUN continued to increase to 40.3, creatinine up to 1.71. Glucose looked great. Calcium at 8.14, albumin at 2.62 and this corrected to 9.2. Telemetry reviewed and sinus rhythm. Reviewed ON nursing notes low BP manually checked, this appears to be stable as he is completely asymptomatic. Heart rate is stable. No c/o N/V. 1 larger watery stool, non bloody, greenish. Minimal urine output recorded. NS running at 115. He has had reported 325 in/275 out. He was net ~4L yesterday. He has no SOA, no crackling, no peripheral edema. BP remains low. I believe hydration/eating and another 24-48 hours will start to show improvement/resolution of the underyling oliguria secondary to hypotension. He is on abx. He is feeling better. Only 1 stool this am, no further N/V/D. Otherwise feeling well. Bladder scan yesterday at [address] Levaquin IV Day #2 Flagyl PO 500mg Day 2 REVIEW OF SYMPTOMS: (Positives bolded) General: weight loss, fever, chills, night sweats, fatigue, appetite loss, [facility] Resident, Poor mobility, Rarely OOB HEENT: blurry vision, eye pain, eye discharge, dry eyes, decreased vision, sore throat, tinnitus, bloody nose, hearing loss, sinus pain/pressure, ear pain/pressure. POOR DENTITION Respiratory: shortness of breath, cough, hemoptysis, wheezing, pleurisy, Cardiovascular: chest pain, PND, palpitation, edema, orthopnea, syncope, swelling of extremities Chronic venous stasis. Gastro: Nausea (RESOLVED), vomiting (x2 this am resolved by 12pm), diarrhea (resolved), hematemesis, abdominal pain, constipation *Chronically* Genito: hematuria, dysuria (RESOLVED), glycosuria, hesitancy, frequency, incontinence uses urinal only. [place]: Arthralgia, myalgia chronically (knees), muscle weakness, joint swelling, Not using NSAID Skin: rash/breakdown back/buttock CUltures pending., pruritis, sores (shearing bed sores noted buttock, back, skin breakdown in abdominal folds), skin thickening (bilateral LE hemosiderin staining stasis dermatitis), change in wart/mole, itching, rash, new lesions, pruritus, nail changes Neuro: Migraine, numbness, ataxia, tremor, vertigo, weakness, memory loss, Irritability, dizziness Endocrine: excessive thirst, polyuria, cold intolerance, heat intolerance, goiter, DM Psychiatric: depression, anxiety, anti-depressants, alcohol abuse, drug abuse, insomnia, change in sleep pattern and mood changes Heme/lymph: easy bruising, bleeding gums, blood clots, swollen glands, lymphedema, Allergic/immune: allergic rhinitis, hay fever, asthma, hives Objective: Vital Signs - 24 hr 04/12/20 18:00 04/12/20 21:36 04/12/20 22:37 Temperature 98.1 F 98.5 F Pulse Rate 90 93 H Respiratory Rate 20 20 Blood Pressure 90/58 L 82/40 L 86/52 L O2 Sat by Pulse Oximetry 99 96 04/13/20 02:00 04/13/20 06:00 04/13/20 10:00 Temperature 98.1 F 97.8 F 97.4 F L Pulse Rate 74 81 88 Respiratory Rate 16 16 18 Blood Pressure 78/42 L 88/70 L 108/64 O2 Sat by Pulse Oximetry 100 99 99 04/13/20 14:00 Temperature 98.0 F Pulse Rate 83 Respiratory Rate 20 Blood Pressure 92/54 L O2 Sat by Pulse Oximetry 96 Constitutional: Appearance-No acute distress, Consistent with stated age. Orientation- Oriented x 3, alert. GCS 15. Gait- Bed bound. Build and Nutrition- [obesity BMI 40] General- Patient is pleasant and cooperative with the interview and exam. Weight back up to 274 ~272 normal. was 266 at admit. Exam unchanged from previous days. Integumentary: General-No generalized rashes, ulcers or lesions on chest, face, UE bilaterally, axilla, groin, thighs. Hemosiderin staining, venous stasis chronically bilateral shins. Shearing lesion upper back chronically from not getting out bed. Similarly left buttock from not getting out of bed. No sacral decub, no heel decub. Breakdown early in abdominal folds. Rolling, skin prep, care to areas of skin contact. Palpation- Normal skin moisture/turgor. Skin is warm to touch, appropriate. Capillary refill is normal bilateral Upper and lower extremity. No e/o secondary infection. Wound cultures obtained. Patient on levaquin now. Still waiting on cultures. skin in abdomen fold with nystatin. Head/Neck: Head- normocephalic and atraumatic. Neck- without visible/palpable lumps or pulsations. Palpation- No bony tenderness about head/neck along frontal, occipital, temporal, parietal, mastoid, jawline, zygoma, orbit or any other location. NO temporal artery tenderness. No TMJ tenderness. Neck Supple. Thyroid-No thyromegaly, no nodules ENMT: Pinna- normal without tenderness or erythema. External auditory canal Left- normal without erythema or discharge, no excessive cerumen. External auditory canal Right-normal without erythema or discharge, no excessive cerumen. TM left- Marquez/pearly, normal light reflex and anatomy TM Right- Marquez/pearly, normal light reflex and anatomy Hearing Assessment-normal to conversational speech. Nose and sinus- No sinus tenderness along frontal/maxillary region. External appearance normal and midline. Nares- bilateral quiet airflow, no discharge. Nasal mucosa- No bleeding noted and no ulcerations observed. [place], moist. Turbinates non boggy. Lips- normal color, moist without cracks/lesions Oral Cavity/Palate- hard/soft palate intact without lesions, oral mucosa pink and moist. Tongue normal midline. Oropharynx- no pharyngeal erythema, Uvula midline. No post nasal drip. No exudate. Salivary glands- Non tender to palpation CHEST/LUNG: Inspection- symmetric chest wall no pectus deformity. Decreased effort, shallow breathing, no distress, no use of accessory muscles. Palpation- nontender sternum, ribline. No abnormal pulsations. Auscultation- Breath sounds diminished/distant throughout all lung lewis. Normal tracheal sounds, Normal bronchial sounds overlying sternum, Bronchovessicular sounds normal between scapulae posteriorly, Normal vessicular breath sounds heard throughout periphery. Lungs are clear today. Adventitious sounds- scattered wheezes, fine crackling and rare rhonchi. CARDIOVASCULAR: Carotid artery- normal, no bruits or abnormal pulsations. Jugular vein- no pulsations. Palpation/Percussion- Normal PMI, no palpable thrill Auscultation- Distant heart sounds. Normal rate at time of eval. No murmur noted in supine positions. Extremities- no cyanosis, edema, increased warmth. ABDOMEN: Inspection- normal and no visible pulsations. Normal contour. Ausc ultation- Bowel sounds remain mildly hypoactive, no abdominal bruits. Palpation/Percussion- soft, mild generalized tenderness. No rebound, no guarding, no rovsing, no mcburney, no obturator/psoas, no e/o hepatic locus. Liver 3 fingers below costal margin. Somewhat limited exam due to habitus. no jar tenderness, no masses. Liver-no hepatomegaly, Spleen no splenomegaly, Hernias- none. Rectal not examined. No suprapubic tenderness. (BLADDER SCAN ORDERED) Peripheral Vascular: Upper extremity Left- Normal temperature with pink nailbeds and no ulcerations. Upper extremity Right- Normal temperature with pink nailbeds and no ulcerations. Lower extremity- Cool temperature symmetrical. Hemosiderin changes, chronic stasis dermatitis appearance bilateral LE. FLIP/SCD in place. Musculoskeletal: Generalized-No generalized swelling or edema of extremities, no digital clubbing or cyanosis, neurovascularly intact all four extremities. Weakness in general from deconditioning. hip flexors weak. Normal sensation to light touch. Minimal movement, minimal activity. Neurological: General- Moves all 4 extremities slowly, reduced str and decreased general conditioing. Symmetrical face and body posture. Cranial nerves- individually evaluated II-XII and intact. PERRLA, Normal EOMI, visual/special senses appear intact, Face is symmetrical and normal sensation/movement, normal tongue, normal strength/posture of neck musculature. Reflexes- intact with DTR 2+ patellar, Achilles, bicep, Strength- 5/5 bilateral UE and LE. Soft touch- intact bilateral UE and LE. Temperature sensation- intact bilateral UE and LE. Neuropsych: Oriented- Person, place, time. (AAOx3), Mood/affect- normal and congruent. Able to articulate well. Speech-Normal speech, normal rate, normal tone, normal use of language, volume and coherence. Thought content- normal with ability to perform basic computations Associations- intact, no SI/HI, no hallucinations, delusions, obsessions. Judgment/insight- Appropriate. Memory- Recall intact, remote and recent memory intact. Lymphatic: Head/Neck- normal size and non tender to palpation. (1) assisted resident: Status: Acute Code(s): Z59.3 - Problems related to living in residential institution SNOMED Code(s): 370869011 (2) SIRS (systemic inflammatory response syndrome): Status: Acute Code(s): R65.10 - Systemic inflammatory response syndrome (SIRS) of non-infectious origin without acute organ dysfunction SNOMED Code(s): 116233256 (3) Dehydration: Status: Acute Code(s): E86.0 - Dehydration SNOMED Code(s): 63523374 (4) Colitis: Status: Acute Code(s): K52.9 - Noninfective gastroenteritis and colitis, unspecified SNOMED Code(s): 67999482 (5) Skin breakdown: Status: Acute Code(s): L90.9 - Atrophic disorder of skin, unspecified SNOMED Code(s): 041985893 (6) Type 2 diabetes mellitus with hemoglobin A1c goal of less than 7.0%: Status: Acute Code(s): E11.9 - Type 2 diabetes mellitus without complications SNOMED Code(s): 77940531 (7) Essential hypertension: Status: Acute Code(s): I10 - Essential (primary) hypertension SNOMED Code(s): 54457777 (8) Hypotension: Status: Acute Code(s): I95.9 - Hypotension, unspecified SNOMED Code(s): 38414512 (9) Physical deconditioning: Status: Acute Code(s): R53.81 - Other malaise SNOMED Code(s): 49208707953242 (10) Hyponatremia: Status: Acute Code(s): E87.1 - Hypo-osmolality and hyponatremia SNOMED Code(s): 03667459 Plan: [facility] Resident, SIRS, N/V/D suspect gastroenteritis vs colitis: HD #3 Abx Day #3 Levaquin IV 500mg daily, flagyl 500 PO Q 8 hours. Cultures pending. BP has been good most of today. MAP goal >65. he has been there almost all day. Another bolus this am. He is eating better, drinking better, better uout. Labs this am looked a little worse but still considering KEILY post hypotension. As long as map remains ~65 or higher, I will not use any pressors. Will bolus again before night. Weight back up to ~274 from 266. He appeared to be dry when he arrived. He has no worsening fluid in legs/lungs, he feels great per his report. sodium seems to be stable. We will repeat labs at 1300 today. We will continue to monitor creatinine and hyponatremia, as well as his WBC. He has not had any further emesis, he has had 1 stool today total. Again urine l ooks better, better drainage. Oliguria had resolved by 1200 with >500 ml output per nursing. Leukocytosis, likely related to demargination/emesis and hemoconcentration now improving. Fluid maintenance increased 115ml/hour. I have asked for chicken broth/salt instead of free water. 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 He looks clinically unchanged from the previous visits at the custodial and from last 48 hours. Continue to monitor as an inpatient status, continue IV levaquin, PO flagyl. We will continue to monitor and adjust dose based on crcl with time. For now continue 500mg IV daily for levaquin and 500mg q8 hours for flagyl. We will continue to await cultures of blood, urine, skin/wound. Vitals look stable. SIRS criteria met initially, but now resolvign. Tele monitored, he has had some 1st degree AV, has had some sinus arrythmia but remains in SA now. CBC/CMP am tomorrow. WE will continue to f/u with results. Plan to consider d/c to [facility] tomorrow. If worsening may still consider transfer to facility with nephrology and or GI. Still w/ Concern for colitis, concern for UTI in male, oligiruia, KEILY seem to be getting better. He reports feeling fine, no abd pain, no further emesis, 1 stool as of this am loose but not diarrhea when I checked on him. Awaiting Cdiff and stool PCR. - Admit to inpatient, telemetry, monitored bed. - Maintenance fluids 115mll/hour NS - CBC/CMP today 1 pm and again tomorrow am - I+O q 4 hours strict - Await urine culture - Await blood/wound culture. - Await Cdiff and stool pcr. - Anti emetics PRN - Diet: ADA 1800kcall diabetic. - levaquin IV 500 mg to continue. - Oral flagyl, consider changing to IV as well if not tolerating intake. - Place calvo Hypotension: improving, we will give 1 more bolus this pm. Will provide maintenance fluid and see patient again in am. Hold BP medications lisinopril. - Monitor Uout. - Labs tomorrow am. Chronic HTN: Hypotensive in hospital. Continue to Hold lisinopril while in hospital. Monitor vitals for BP and HR with telemetry. DM 2 A1C goal <7%. Last A1C <7% within last 40 days. Continue home meds, 25 units basal insulin at night. Will add sliding scale if sugars remain >250. - Accucheck 4x daily. - Call with >250. - Continue home doses of insulin. Hyponatremia: Monitoring. Trying to reduce free water, adding salt with meals. Stable just under 130. Monitor for true reading <130. Skin Breakdown: Chronic. Roll q 2 hours. Bandage regions on back/left buttock. - Await skin/wound culture DVT prophylaxis: FLIP/SCD as ?bleeding per ED assessment. Diet: ADA 1800kcal diet. GI Prophy: Home medication resumed for PPI but nothing specifically for this problem. History of CHF: rehydration. PRO BNP mildly elevated at admit. Monitor CBC/CMP and BMP. Despite net + 2800 ml he has no crackling, no fluid in legs, no edema. - Daily weights. - Up from 266 to 274. - No Crackles, no peripheral edema. Stable. - Monitor. Maintenance fluids: 115ml/hr. Disposition: Continue Admit to inpatient, continue rehydration,antiemetics, abx levaquin/flagyl x 5 days. We will reasess patient at 1pm today with CBC/cMP. Monitor WBC, monitor urine out put. Will f/u with patient today and monitor for oliguria. Continue to monitor labs/tele, input and output. We will consider referral to nephrology if Creatinine and GFR continue to progress negatively. Reassess in am tomorrow for status change. Expect home in next 24-48 hours or transfer to larger facility if needed. BP is stable at ~90-100 SBP. He is asymptomatic. I want the MAP >65 for renal perfusion. He is better after a bolus. Will bolus again this pm. Will continue to monitor for s/sx of fluid overload none so far. We will await cultures, await stool studies. FLIP/SCD for DVT prophy. Patient is full code. >35 minutes spent on admission today not including documentation Repeat labs CMP 04/13/20 13:23. Sodium 128.7, glucose 140.2. K+ 3.88. BUN has dropped from 40.3 to 33.6 creatine from 1.71 to 1.26. GFR 39 to 56. Calcium 8.09 but with albumin of 2.83 corrects to normal. Labs look better. Unable to bolus at this time. Site cannot tolerate bolus. Monitor for MAP <65. Talked with nursing and we may need to try to get another site. They have tried several times and difficulty getting anIV set up. Talked with nursing [id number].
[2020-04-13] MEDS: FERROUS SULFATE PO SCH ×2 (08:06→20:32)
[2020-04-13] MEDS: ASPIRIN CHEWABLE PO SCH (08:06)
[2020-04-13] MEDS: TRADJENTA PO SCH (08:06)
[2020-04-13] MEDS: LIPITOR PO SCH (08:07)
[2020-04-13] MEDS: ATIVAN PO SCH ×2 (08:07→20:32)
[2020-04-13] MEDS: NORCO 7.5-325 PO SCH ×3 (08:07→20:32)
[2020-04-13] MEDS: NYSTOP POWDER TP SCH ×2 (08:07→20:32)
[2020-04-13] MEDS: SYMBICORT 160-4.5 MCG INHALER IH SCH ×2 (08:08→20:34)
[2020-04-13] MEDS ORDERED: SODIUM CHLORIDE 500 ML IV STA ×2 (08:10→08:18)
[2020-04-13] MEDS: LEVAQUIN 500 MG/100 ML D5W 500 MG/100 ML BAG IV SCH (08:10)
[2020-04-13] MEDS: SODIUM CHLORIDE 1,000 ML IV SCH ×4 (08:14→19:45)
[2020-04-13] MEDS: VORTIOXETINE 10 MG PO SCH (09:23)
[2020-04-13 13:44] LABS: ALANINE AMINOTRANSFERASE 13.9 U/L (0-50); ALBUMIN 2.83 g/dL (3.5-5.0); ALKALINE PHOSPHATASE 75.1 U/L (56-119); ASPARTATE AMINO TRANSFERASE 27.2 U/L (17-59); BILIRUBIN,TOTAL 0.16 mg/dL (0.2-1.3); BLOOD UREA NITROGEN 33.6 mg/dL (9-20); CALCIUM 8.09 mg/dL (8.4-10.2); CARBON DIOXIDE 23.6 mmol/L (22-30.0); CHLORIDE 100.5 mmol/L (98-107); CREATININE 1.26 mg/dL (0.60-1.10); GLUCOSE 140.2 mg/dL (74-106); SODIUM 128.7 mmol/L (134.5-145); TOTAL PROTEIN 5.78 g/dL (6.3-8.2)
[2020-04-13] MEDS: LANTUS SUBCUT SCH (20:31)
[2020-04-13] MEDS: DESYREL PO SCH (20:32)
[2020-04-14] MEDS: SODIUM CHLORIDE 1,000 ML IV SCH ×2 (04:29→16:59)
[2020-04-14 05:39] LABS: BASOPHILS % (AUTO) 0.4 % (0.0-3.0); EOSINOPHILS # (AUTO) 0.1 K/ul (0.0-0.7); EOSINOPHILS % (AUTO) 1.1 % (0.0-7.0); HEMATOCRIT 30.9 % (42.0-52.0); HEMOGLOBIN 9.7 g/dl (14.0-18.0); IMMATURE GRANULOCYTE # (AUTO) 0.1 (0.0-1.0); IMMATURE GRANULOCYTE % (AUTO) 0.7 % (0.0-5.0); LYMPHOCYTES # (AUTO) 1.7 K/uL (0.60-3.4); LYMPHOCYTES % (AUTO) 16.7 (10.0-50.0); MEAN CORPUSCULAR HGB CONC 31.4 (31.8-35.4); MEAN CORPUSCULAR VOLUME 87.5 fl (80.0-94.0); MONOCYTES # (AUTO) 0.7 K/uL (0.4-2.0); MONOCYTES % (AUTO) 6.7 (0-10); NEUTROPHILS # (AUTO) 7.6 K/ul (2.0-6.9); NEUTROPHILS % (AUTO) 74.4 % (42.2-75.2); PLATELET COUNT 211 10^3/uL (140-440); RDW COEFFICIENT OF VARIATION 16.3 % (11.6-14.8); RED BLOOD COUNT 3.53 10^6/ul (4.70-6.10); WHITE BLOOD COUNT 10.26 K/ul (4.2-10.2)
[2020-04-14 05:54] LABS: ALANINE AMINOTRANSFERASE 12.9 U/L (0-50); ALBUMIN 2.86 g/dL (3.5-5.0); ALKALINE PHOSPHATASE 75.2 U/L (56-119); ASPARTATE AMINO TRANSFERASE 22.1 U/L (17-59); BILIRUBIN,TOTAL 0.16 mg/dL (0.2-1.3); BLOOD UREA NITROGEN 18.7 mg/dL (9-20); CALCIUM 8.19 mg/dL (8.4-10.2); CARBON DIOXIDE 25.8 mmol/L (22-30.0); CHLORIDE 104.2 mmol/L (98-107); CREATININE 0.8 mg/dL (0.60-1.10); GLUCOSE 92.1 mg/dL (74-106); SODIUM 132.8 mmol/L (134.5-145); TOTAL PROTEIN 5.99 g/dL (6.3-8.2)
[2020-04-14] MEDS: PRILOSEC PO SCH (05:54)
[2020-04-14] MEDS: FLAGYL PO SCH ×2 (05:54→12:05)
--- NOTE | 2020-04-14 08:46 | PCM.DC ---
Final Diagnosis: 1. Colitis (IV levaquin/PO Flagyl) 2. Hypotension (RESOLVED) 3. Hyponatremia (RESOLVING) 4. KEILY likely secondary to hypotension (RESOLVING) 5. MRSA Skin infection (antibiotics changes today) 6. N/V/D (Resolved). 7. Venous Stasis Chronic (Stable) 8. Morbid Obesity (CHRONIC STABLE) 9. Deconditioning/Bed Bound (CHRONIC/STABLE) 10. SIRS CRITERIA (RESOLVED) 11. Halfway Resident Dish Up Person (Chronic) 12. HTN (Lisinopril MEDICATIONS HELD) 13. DM 2 A1C goal <7% (Chronic/Stable). fitness sales associate insulin continued. 14. Skin breakdown/shearing. Rolled q 2 hours. 15. History of CHF (Fluid hydration, monitored throughout stay). (1) snf resident: Status: Acute Code(s): Z59.3 - Problems related to living in residential institution SNOMED Code(s): 080759898 (2) SIRS (systemic inflammatory response syndrome): Status: Acute Code(s): R65.10 - Systemic inflammatory response syndrome (SIRS) of non-infectious origin without acute organ dysfunction SNOMED Code(s): 962216331 (3) Dehydration: Status: Acute Code(s): E86.0 - Dehydration SNOMED Code(s): 38928512 (4) Colitis: Status: Acute Code(s): K52.9 - Noninfective gastroenteritis and colitis, unspecified SNOMED Code(s): 81742258 (5) Skin breakdown: Status: Acute Code(s): L90.9 - Atrophic disorder of skin, unspecified SNOMED Code(s): 335012275 (6) Type 2 diabetes mellitus with hemoglobin A1c goal of less than 7.0%: Status: Acute Code(s): E11.9 - Type 2 diabetes mellitus without complications SNOMED Code(s): 07176666 (7) Essential hypertension: Status: Acute Code(s): I10 - Essential (primary) hypertension SNOMED Code(s): 67281687 (8) Hypotension: Status: Acute Code(s): I95.9 - Hypotension, unspecified SNOMED Code(s): 21891137 (9) Physical deconditioning: Status: Acute Code(s): R53.81 - Other malaise SNOMED Code(s): 16379038827393 (10) Hyponatremia: Status: Acute Code(s): E87.1 - Hypo-osmolality and hyponatremia SNOMED Code(s): 37517362 Reason for Hospitalization: Hypotension, KEILY, Colitis, concern for UTI, concern for skin infection, decreased PO intake, hyponatremia. Prognosis at Discharge: Markedly improved. Hyponatremia nearly resolved, hypotension resolved, skin rolling q 2 hours, bandaged. Calvo was placed good urine output. KEILY improved. Essentially back to baseline state. Condition at Discharge: Markedly improved. Hyponatremia nearly resolved, hypotension resolved, skin rolling q 2 hours, bandaged. Calvo was placed good urine output. KEILY improved. Essentially back to baseline state. Medications at Discharge: Ambulatory Orders Medication Instructions Recorded atorvastatin [Lipitor] 10 mg PO DAILY #30 tab-cap 05/23/17 ondansetron HCl 4 mg PO Q6H PRN #1 tablet 07/01/17 polyethylene glycol 3350 [Miralax] 17 g PO DAILY #1 bot 07/01/17 Basaglar KwikPen U-100 Insulin 25 unit SUBCUT BEDTIME 04/11/20 Breo Ellipta 1 inh INHALATION DAILY 04/11/20 Tradjenta 5 mg PO DAILY 04/11/20 acetaminophen [Tylenol] 650 mg PO Q6H PRN 04/11/20 albuterol sulfate 0.63 mg INHALATION Q4H PRN 04/11/20 ascorbic acid (vitamin C) 500 mg PO BID 04/11/20 aspirin 81 mg PO DAILY 04/11/20 calcium carbonate 1,000 mg PO DAILY 04/11/20 dextromethorphan-guaifenesin 10 ml PO Q12H PRN 04/11/20 ferrous sulfate 325 mg PO BID 04/11/20 fluticasone propionate 2 spray INTRANASAL Q12H 04/11/20 hydrocodone-acetaminophen [Sweetwater] 1 tab PO TID 04/11/20 lorazepam [Ativan] 0.5 mg PO BID 04/11/20 magnesium hydroxide [Milk of 400 mg PO DAILY PRN 04/11/20 Magnesia] multivitamin 1 tab PO DAILY 04/11/20 nystatin 1 applic TOPICAL BID 04/11/20 nystatin 1 applic TOPICAL BID 04/11/20 omeprazole 20 mg PO DAILY 04/11/20 promethazine 25 mg KS Q6H PRN 04/11/20 trazodone 50 mg PO BEDTIME 04/11/20 vortioxetine 10 mg PO DAILY 04/11/20 levofloxacin 500 mg PO DAILY 5 Days #5 tab 04/14/20 linezolid 600 mg PO BID 7 Days #14 tab 04/14/20 lisinopril 10 mg PO DAILY #30 tab-cap 04/14/20 metronidazole 500 mg PO Q8HR 5 Days #15 tab 04/14/20 mupirocin 1 applic TOPICAL TID 14 Days #22 g 04/14/20 Lab/Diagnostics: Laboratory Last Values WBC 10.26 K/ul (4.2-10.2) H 04/14/20 05:25 RBC 3.53 10^6/ul (4.70-6.10) L 04/14/20 05:25 Hgb 9.7 g/dl (14.0-18.0) L 04/14/20 05:25 Hct 30.9 % (42.0-52.0) L 04/14/20 05:25 MCV 87.5 fl (80.0-94.0) 04/14/20 05:25 MCH 27.5 pg (27.0-31.0) 04/14/20 05:25 MCHC 31.4 (31.8-35.4) L 04/14/20 05:25 RDW Coeff of Scott 16.3 % (11.6-14.8) H 04/14/20 05:25 Plt Count 211 10^3/uL (140-440) 04/14/20 05:25 Immature Gran % (Auto) 0.7 % (0.0-5.0) 04/14/20 05:25 Neut % (Auto) 74.4 % (42.2-75.2) 04/14/20 05:25 Lymph % (Auto) 16.7 (10.0-50.0) 04/14/20 05:25 Waller % (Auto) 6.7 (0-10) 04/14/20 05:25 Eos % (Auto) 1.1 % (0.0-7.0) 04/14/20 05:25 Baso % (Auto) 0.4 % (0.0-3.0) 04/14/20 05:25 Neut # (Auto) 7.6 K/ul (2.0-6.9) H 04/14/20 05:25 Lymph # (Auto) 1.7 K/uL (0.60-3.4) 04/14/20 05:25 Waller # (Auto) 0.7 K/uL (0.4-2.0) 04/14/20 05:25 Eos # (Auto) 0.1 K/ul (0.0-0.7) 04/14/20 05:25 Baso # (Auto) 0.0 K/uL (0-0.2) 04/14/20 05:25 Immature Gran # (Auto) 0.1 (0.0-1.0) 04/14/20 05:25 Neutrophils % (Manual) 87.0 % (42.2-75.2) H 04/12/20 15:55 Lymphocytes % (Manual) 10.0 % (10.0-50.0) 04/12/20 15:55 Monocytes % (Manual) 2.0 % (0.0-10.0) 04/12/20 15:55 Reactive Lymphocytes 1.0 % (0.0-5.0) 04/12/20 15:55 Anisocytosis Not present (NOT PRESENT) 04/12/20 15:55 Puncture Site Rrad 04/11/20 12:18 O2 Saturation 89.0 % (95-100) L 04/11/20 12:18 ABG pH 7.360 (7.35-7.45) 04/11/20 12:18 ABG pCO2 43.4 mmHg (35-45) 04/11/20 12:18 ABG pO2 60.0 mmHg (85-100) L 04/11/20 12:18 ABG HCO3 24.5 (22.0-26.0) 04/11/20 12:18 ABG Total CO2 26 (22.0-28.0) 04/11/20 12:18 ABG Base Excess -1 (-2.0-2.0) 04/11/20 12:18 Chase Test + 04/11/20 12:18 FiO2 % 21.0 % 04/11/20 12:18 Sodium 132.8 mmol/L (134.5-145) L 04/14/20 05:25 Potassium 3.77 mmol/L (3.5-5.1) 04/14/20 05:25 Chloride 104.2 mmol/L (98-107) 04/14/20 05:25 Carbon Dioxide 25.8 mmol/L (22-30.0) 04/14/20 05:25 Anion Gap 6.57 04/14/20 05:25 BUN 18.7 mg/dL (9-20) 04/14/20 05:25 Creatinine 0.80 mg/dL (0.60-1.10) 04/14/20 05:25 Estimated GFR (MDRD) 94.00 mL/min 04/14/20 05:25 BUN/Creatinine Ratio 23.37 04/14/20 05:25 Glucose 92.1 mg/dL (74-106) 04/14/20 05:25 Lactic Acid 0.69 mmol/L (0.7-2.1) L 04/11/20 12:48 Calcium 8.19 mg/dL (8.4-10.2) L 04/14/20 05:25 Total Bilirubin 0.16 mg/dL (0.2-1.3) L 04/14/20 05:25 AST 22.1 U/L (17-59) 04/14/20 05:25 ALT 12.9 U/L (0-50) 04/14/20 05:25 Alkaline Phosphatase 75.2 U/L (56-119) 04/14/20 05:25 Troponin I < 0.012 ng/ml (0.0000-0.120) 04/11/20 12:48 NT-Pro-B Natriuret Pep 761.000 pg/mL (0-300) H 04/11/20 12:40 Total Protein 5.99 g/dL (6.3-8.2) L 04/14/20 05:25 Albumin 2.86 g/dL (3.5-5.0) L 04/14/20 05:25 Globulin 3.13 04/14/20 05:25 Albumin/Globulin Ratio 0.91 04/14/20 05:25 Lipase 29.8 U/L (23-300) 04/11/20 12:20 Procalcitonin 0.12 ng/mL (<0.05) 04/11/20 12:48 Urine Color Brown (YELLOW) 04/11/20 16:20 Urine Clarity Turbid (CLEAR) 04/11/20 16:20 Urine pH 5.0 (5-9) 04/11/20 16:20 Ur Specific [place] 1.020 (1.005-1.030) 04/11/20 16:20 Urine Protein 2+ (NEGATIVE) H 04/11/20 16:20 Urine Glucose (UA) Negative (NEGATIVE) 04/11/20 16:20 Urine Ketones 1+ (NEGATIVE) H 04/11/20 16:20 Urine Blood 3+ (NEGATIVE) H 04/11/20 16:20 Urine Nitrite Negative (NEGATIVE) 04/11/20 16:20 Urine Bilirubin 2+ (NEGATIVE) H 04/11/20 16:20 Urine Urobilinogen 2.0 (0.2) H 04/11/20 16:20 Ur Leukocyte Esterase 3+ (NEGATIVE) H 04/11/20 16:20 Urine Microscopic RBC Tntc (0-2) 04/11/20 16:20 Urine Microscopic WBC Tntc (0-2) 04/11/20 16:20 Ur Squamous Epith Cells Not present (0-5) 04/11/20 16:20 Urine Bacteria 2+ (NOT PRESENT) 04/11/20 16:20 Stl Occult Blood (IFOB) Positive (NEGATIVE) 04/11/20 13:20 Stool Occult Blood #2 No specimen received (NEGATIVE) 04/11/20 13:20 Stool Occult Blood #3 No specimen received (NEGATIVE) 04/11/20 13:20 CT Chest 04/11/20: IMPRESSION: 1. No acute cardiopulmonary process. 2. Stable chronic complex right pleural effusion and adjacent rounded atelectasis. Calcified pleural plaquing. Findings likely due to previous asbestos exposure. CT Abd Pelvis 04/11/20: Impression: 1. Circumferential wall thickening of the rectosigmoid colon and to a lesser degree the descending colon, consistent with colitis. Broad differential considerations include infectious, inflammatory or vascular etiologies. 2. No urinary or bowel obstruction. 3. Circumferential wall thickening of the bladder. Broad differential considerations include there is tension, cystitis and/or neoplasm. 4. Unchanged multiple nonobstructive right renal calculi. 5. Unchanged chronic small right pleural effusion with right lower lobe chronic consolidation, which could represent round atelectasis or scar. Other etiologies not excluded. This is unchanged since 06/28/2017. There is mild increased linear atelectasis or scarring in the right middle lobe base. Bladder scan: 04/13 0 ML. Culture: Urine CUlture NG Blood Culture NG Skin Culture MRSA: - Resistant to Cipro/clinda/ERM/Levaquin, oxacillin, pCN. Sensistive to linezolid/bactrim. Education Provided to Patient and Family: 1. Colitis 2. Levaquin/Flagyl/linezolid. 3. Hypotension 4. Hyponatremia 5. KEILY 6. Need to get OOB 7. FLIP/SCD for DVT d/w patient. Follow-ups: 1./ Return to [place]. Will see patient in 1 week. Discharge Disposition: [facility] Hospital Course: Day of Admit 04/11/20: Day 1. Mr. Williamson is a 74 year old halfway resident of [facility]. snf called [facility] at 1032 this am and Comfort noted that patients BP was 72/42 this morning and was 98/48 at time of conversation. They noted patient was having emesis was given a Zofran however the patient continued to have emesis and lost the rx. Comfort from [facility] states the patient has also had diarrhea and was "pale, cold, clammy." She stated that the patients temp was 98.5, he does not get out of his bed at all. His pulse was 42 and they were worried about him. Nurse Ivania got me urgently and with his hypotension, bradycardia, I recommended that he be transferred urgently to the ER for further evaluation. He arrived via ambulance on 04/11/20 at around 12:[address] Clayton. Noted diarrhea, nausea, emesis, feeling weak, tired. He was hypotensive, bradycardic as found at [place]. Initial vitals were found to be temp 95.8, HR 52, BP 91/46, RR20, pulse ox 94% on RA. He met SIRS criteria with low temp, RR >20, and eventually WBC >12. He has chronic back wounds, chronic lack of movement, chronic detention status and rarely gets out of bed/bathes. Symptom onset within 24 hours. #2 episodes of emesis in last 24 hours, Diarrhea x 3 in last 24 hours. Moderate severity initially and currently. Bilious vomiting, non bloody, regurgitant w/ stomach contents. Diarrhea watery, not particularly foul smelling, soft, dark. He is on iron regularly (fecal ocult was + in ED but he is on iron). ED provider noted that the stool was darker but not characteristic of BRBPR or melenotic. Abd pain noted, light- headedness noted, dizziness noted. Ddx considered dehydration, viral gastroenteritis, pancreatitis, UTI. ROS from ED note reviewed. Listed no symptoms across the board. PFSH reviewed, phs exam ill appearing obest male. conjunctiva clear. OP normal. TM occluded. Airway patent/breath sounds grupo.r CV RRR, normal pulses. GI non tender, no masses hypoactive BS. CT chest completed and radiology report reviewed: . " 1. Circumferential wall thickening of the rectosigmoid colon and to a lesser degree the descending colon, cons istent with colitis. Broad differential considerations include infectious, inflammatory or vascular etiologies. 2. No urinary or bowel obstruction. 3. Circumferential wall thickening of the bladder. Broad differential considerations include there is tension, cystitis and/or neoplasm. 4. Unchanged multiple nonobstructive right renal calculi. 5. Unchanged chronic small right pleural effusion with right lower lobe chronic consolidation, which could represent round atelectasis or scar. Other etiologies not excluded. This is unchanged since 06/28/2017. There is mild increased linear atelectasis or scarring in the right middle lobe base. CT chest completed and reviewed report from radiology: "IMPRESSION: 1. No acute cardiopulmonary process. 2. Stable chronic complex right pleural effusion and adjacent rounded atelectasis. Calcified pleural plaquing. Findings likely due to previous asbestos exposure." ABG was done and showed + allens test, O2 89%, pH 7.360, pco2 43.4, po2 60, h co3 24.5, total co2 26, fio2 21%. Independent interpretation suggests that this ABG is near normal with hypoxia. Numbers generally suggest chronic primary respiratory acidosis with metabolic acidosis as well. With pH of 7.36 this is rather normal, pco2 is with range of 35-45, hco3 iw in range of 22-26. ER LABS: CBC 18.63, hgb 11.9, plt 247. Predominately neutrophila with 87.2%. Neut #16.3. CMP Sodium 139.6, K+ 4.37, Cl 96.0, BUN 26.6, Cr 1.02, glucose 226.3. Corrected sodium was 132 based on DELGADO equation and 133 based on Ariel and minimally low. BNP: minimally elevated at 761.0. Lipase 29.8 and normal suggesting pancreatitis is less likely, similar findings when compared to imaging. Troponin I negative at <0.012. Lactic acid was negative at 0.69, procalcitonin 0.12. Alk phs normal 118.3, ast 36.6, alt 20.8. Stool occult listed as + but patient is on iron. He was given 1 L of NS in ED, caution from ED provider due to history of CHF. Patient has known chronic HTN, insulin d ependent DM controlled with recent a1c <7%, HLD, depression, nausea, constipation, COPD, anxiety, yeast infections of skin, GERD. Patient was accepted by me under observastion status at approximately 16:00. Above reviewed, patient seen/examined specifically at 2100. Talked with floor nursing, orders placed, patient reassessed at my review. He is on telemetry. We are using FLIP/SCD for DVT prophy due to ?blood in stool. He will be placed on contact isolation with concern for diarrhea and pending C.Diff. Most recent vitals at 20:27 showed BP improved to 108/60, pulse 85, rr 18, temp 97.7, o2 sat 99. Reviewed chart. Microalbumin done and negative within last year. A1C last done 02/19/20 and was 6.32. Urinalysis in ED showed brown, turbid, pH 1.020 2+ protein, negative glucose, 1+ ketones, 3+ blood, 2+ bili, 2.0 urobil, LE 3_, TNTC RBC, TNTC WBC, Squams not present, bacteria 2+. [place] Body weight 156 pounds Adjusted Body weigth 200 pounds. Home meds reviewed. BP medications Held due to hyponatremia. Responded to bolus. Admitted to inpatient status with hyponatermia, leukocytosis, met SIRS criteria but Lactic acid and procalc negative. He was hypotensive initially with impro vement, was bradycardic upon arrival. Imaging consistent with colitis and emesis/diarrhea with dehydration consistent as well. His hyponatremia corrected to 132. ?Blood in stool may have been iron supplement. Will monitor. Repeat labs in am and f/u with results. Concern for colitis. Concern for UTI in male. He reports feeling a little better, less abd pain, no further emesis/diarrhea when I checked on him. Will get Cdiff. Will get stool PCR. Admit to inpatient, telemetry, monitored bed. Maintenance fluids 100ml/hour NS CBC/CMP in am. I+O q shift Await urine culture Await blood/wound culture. Await Cdiff and stool pcr. Anti emetics. Fluid in am ADA 1800kcall diabetic. Will trial cipro orally in am if no more emesis else change to IV levaquin. Oral flagyl, consider changing to IV as well. Hold BP medications lisinopril. Accucheck 4x daily. Skin Breakdown: Chronic. Roll q 2 hours. Bandage regions on back/left buttock. DVT prophylaxis: FLIP/SCD as ?bleeding per ED assessment. Diet: ADA 1800kcal diet. Maintenance fluids: 100ml/hr. Patient is full code. >70 minutes spent on admission today not including documentation. 04/12/20 Day 2: Subjective: 74 yo CM HD #2 [place] resident, bedbound, deconditioning, chronic poor health, poor dentition, known history of DM, HTN, HLD, depression, anxiety, GERD presented to hospital 04/11/20 with hypotension, N/V/D, hypothermia, hyponatremia and had met SIRS criteria. The patient was seen by DR. Clayton, admitted to vt after fluid hydration/bolus, and IV abx. CT Abdomen/pelvis (NON CONTRAST) showed ?UTI/thickening of bladder, as well as ?colitis. Additionally, he had open skin shearing chronically. Dx with colitis and suspected UTI on imaging. Patient is a poor historian, has no close family and health is poor/ailing in general. Typically will lie in bed /, will fight nursing against showering/getting out of bed at [place]. fitness sales associate/known patient to me. This am he is resting in bed again, FLIP/SCD in place and has no c/o other than emesis x 2 overnight and no appetite. I talked with am nursing, I talked with overnight nurse, reviewed telemetry, discussed care with case management. Patient and I had a lengthy discussion about end of life care and his code status. He wishes to remain a full code, aware of risks of CPR/intubation. I feel he is capable of making this decision after discussion. I discussed if worsening is he okay with transfer to larger hospital and he noted he was okay with this option if needed. He is AAOx3, aware of current events, conversant. he mentioned that he would like to try to contact son James Owen if able. We will try to get this #. He and I reviewed my H+P, reviewed overnight documentation from nurses as well. The patient labs this am showed sodium 128.5 (corrects to 130 based on glucose 186.5). This is mildly worse than yesterday but still ~130 based on correction. Potassium remains stable at 4.34. Kidney function is mildly worse at 1.49 and glucose is 186.5. Nursing only noted 100 cc out overnight, which is not ideal and may be KEILY secondary to hypovolemia from yesterday. CBC showed 28.56 for WBC, up quite a bit from yesterday. 93% neutrophils on differential support demargination, support hemoconcentration. He has no e/o left shift at this time. he has not been on steroids, did not get contrast, no new nephrotoxic drugs specifically. Hemoglobin is stable at 11.9 and Plt stable at 269. cultures for urine no growth, cultures for skin too young to read, BC not yet back. He had 1 dose of rocephin in ED, 1 dose of cipro in ED and 1 dose of flagyl in ED. I have ordered cipro 500 BID pO this am but he had Emesis x 2 reported over night. I will change this to levaquin 500 IV daily. Reviewed the overnight nursing notes and he had #2 emesis reported by 0634, No reported nausea and no further emesis since that time. He remains afebrile, pulse 76, rr 20, Po2 96% with BP of 71/50 this am. He has had fluids running at 100ml/hour which is just under his maintenance rate based on his ideal weight 156lb (111ml/hour) and adjusted weight of 200lb (131 ml/hour). I will increase his fluids to 120ml/hr. He has only had 100ml out of urine, concern for oliguria. We will check I&O more closely, discussed with nursing this am. Will bolus another 500 and repeat BMP at 9 and 11 am. Will increase fluids to 120ml/hour as he is not taking in much fluid. BP through the night showed 83/52, 72/44, 71/50. He has tolerated the SCD well. NO new skin rash, no c/o pain in head/neck/arms/legs/chest. Rash on legs chronically is unchanged. SCD in place this am. 0135 this am he had emesis brown colored no reported pain. He has no c/o urinary issues, no diarrhea since admit, afebrile, no frequency/hesitancy, burning. BP remains low today. As noted, I will bolus another 500ml NS, will increase flow of his fluids from 100 to 120, will change his cipro po to levaquin 500 IV. Will check BMP again at 9 am and 11 am and monitor sodium closely. Should we need to improve sodium, we will consider 3%NS with 100ml and repeat this as needed to keep sodium >130. However, if not producing urine, I will likely not complete the hypertonic saline. Considered FeNA testing but without urine production, this is limited. Looking and talking to the patient, he feels fine. His labs look worse than he appears clinically. Chronically poor health, chronic poor dentition as noted above. Glucose seems reasonable at present. I will add sliding scale insulin/correctional insulin. He reports no pain, no fever, no new issues. Awaiting wound culture, urine culture, blood culture. Continue abx. Checked BMP labs at 0900 after 500 cc bolus. Sodium unchanged at 128.5. K+ 4.39. BUN 34 an dCr increased from 1.49 to 1.68. Glucose 234.5 with corrected sodium right at 130. Patient BP repeated 90/60, pulse 88, rr 10-12 and Temp 97.7. Tele rechecked and patient Sinus arrhythmia. Repeated check at 1100 with BMP. Sodium 128.2, glucose 204.4 corrected just at 129, K+_ 4.34, BUN up to 35.5 from 34 and creatinine up to 1.77. Talked to case management. Would like to get bladder scan, would like to place calvo. Strict I+O to be monitored. I checked on patient again at 12:10 and he still feels fine, no appetite, no e/o fluid overload, no other symptoms to report. No new pain, no SOA, no cough. He has not had any emesis since this am, no diarrhea since this am. I suspect ?hyptoensive state had led to some KEILY. Fluid hydration is solis. CT did not show any obstruction but he did have thickening of the bladder. Will try calvo and that way we can monitor output. Oliguria is common with KEILY. CT were completed without contrast. He has had 200ml output documented since 8pm last night. 04/13/20 Day 3: 74 yo CM HD #3 Antibiotics Day #3 Levaquin IV 500mg daily, flagyl 500 mg PO q 8 hours. [place] resident, bedbound, deconditioning, chronic poor health, poor dentition, known history of DM, HTN, HLD, depression, anxiety, GERD presented to hospital 04/11/20 with hypotension, N/V/D, hypothermia, hyponatremia and had met SIRS criteria. The patient was seen by DR. Clayton, admitted to vt after fluid hydration/bolus, and IV abx. Yesterday labs were monitored several times. Oliguria is present, bladder scan was completed 0 ml was present calvo placed and urine started flowing. The patient had improved urine output after that point. He is feeling fine, continued to do okay, no N/V/D after 1200 yesterday through last night. Personally checked on patient at 530 pm last night. He was eating a hamburger, eating potato wedges, ate some chicken broth and loved it. he has been chugging water all day without eating salt and sodium was worse. Labs rechecked yesterday pm showed CBC: 20.26 wbc down from 28.56, hgb 10.5 down from 11.9, plt 223. All decreased suggestive of hemodilution. Sodium 127.5 K+ 4.10, cl 95.7, cr 1.62 down from 1.77. Glucose 105.6 and stable. Never needed to start the insulin. Calcium listed at 8.29. I wanted to repeat levels in am so I can get albumin. No further emesis, no further diarrhea as of 04/13/20 7:25 am. He was Eating well, feeling better. 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 Discussed with nursing to try to limit his fluid intake overnight for plain water. Give him some chicken broth again in a few hours for salt. Backed down on fluids to 115 ml/hour. Urine output seemed to be picking up. This am labs showed improved sodium from 127.5 to 129.4. BUN continued to increase to 40.3, creatinine up to 1.71. Glucose looked great. Calcium at 8.14, albumin at 2.62 and this corrected to 9.2. Telemetry reviewed and sinus rhythm. Reviewed ON nursing notes low BP manually checked, this appears to be stable as he is completely asymptomatic. Heart rate is stable. No c/o N/V. 1 larger watery stool, non bloody, greenish. Minimal urine output recorded. NS running at 115. He has had reported 325 in/275 out. He was net ~4L yesterday. He has no SOA, no crackling, no peripheral edema. BP remains low. I believe hydration/eating and another 24-48 hours will start to show improvement/resolution of the underyling oliguria secondary to hypotension. He is on abx. He is feeling better. Only 1 stool this am, no further N/V/D. Otherwise feeling well. Bladder scan yesterday at [address] Continue to monitor Creatinine, BP and HR. Continue to await cultures. Hold BP medications. IV abx and pO flagyl still in place. Calvo doing well. Monitor uout. Still suspect hypotension induced KEILY. Levaquin IV Day #2 Flagyl PO 500mg Day 2 04/14/20 Day #4 DAY OF D/C. Talked with overnight nursing, case management. 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 Patient has had improvement in labs. Sodium this am 132.8 up from 128.7, K+ stable at 3.77, BUN 18.7, Cr 0.80 down from 1.26. Glucose stable at 92.1. Clacium was low at 8.19 but corrected to 9.1 with low albumin. CBC showed WBC 10.26, Hgb 9.7 and plt 211. He had 4897 in yesterday and 3175 out. He is net up ~5L which makes sense for hypotension/hypotensive shock. KEILY is improving, amzing Uout. He feels great, no c/o. Legs chronically poor, chronic venous stasis, stasis dermatitis and changes. Reviewed overnight documentation. No c/o pain, no diarrhea, no further emesis. C.Diff orders can be cancelled as he has not had diarrhea. Would monitor for this at [facility] as he is on abx now. Calvo output pale yellow. Will remove calvo prior to d/c Will have nursing follow up with patient at [facility] to make sure that he is stable and producing urine. BP stable 104/62, 131/69, 127/70. MAP >65 ~12 hours and doing well. He feels unchanged. Weight is up about 10 lb from admit, back to about preadmit weight. No crackles, no SOA, no breathing issues. Some edema of legs chronically but not worse. Skin in abdomen and folds coverd with nystatin. FOB elevated. Legs with SCD. He has poor conditioning, will go back to [facility] and will not leave the bed. Continue close monitoring of the patient. Day of D/C Examination: Vital Signs - 24 hr 04/13/20 10:00 04/13/20 14:00 04/13/20 17:51 Temperature 97.4 F L 98.0 F 97.7 F Pulse Rate 88 83 Respiratory Rate 18 20 Blood Pressure 108/64 92/54 L 118/70 O2 Sat by Pulse Oximetry 99 96 97 04/13/20 21:33 04/14/20 02:00 04/14/20 05:38 Temperature 97.6 F 97.7 F 97.4 F L Pulse Rate 78 81 83 Respiratory Rate 20 18 20 Blood Pressure 104/62 131/69 127/70 O2 Sat by Pulse Oximetry 99 99 100 Constitutional: Appearance-No acute distress, Consistent with stated age. Orientation- Oriented x 3, alert. GCS 15. Gait- Bed bound. Build and Nutrition- [obesity BMI 40] General- Patient is pleasant and cooperative with the interview and exam. Weight back up to 274 ~272 normal. was 266 at admit. Exam unchanged from previous days. Integumentary: General-No generalized rashes, ulcers or lesions on chest, face, UE bilaterally, axilla, groin, thighs. Hemosiderin staining, venous stasis chronically bilateral shins. Shearing lesion upper back chronically from not getting out bed. Similarly left buttock from not getting out of bed. No sacral decub, no heel decub. Breakdown early in abdominal folds. Rolling, skin prep, care to areas of skin contact. Palpation- Normal skin moisture/turgor. Skin is warm to touch, appropriate. Capillary refill is normal bilateral Upper and lower extremity. No e/o secondary infection. Wound cultures obtained. Patient on levaquin now. Still waiting on cultures. skin in abdomen fold with nystatin. Head/Neck: Head- normocephalic and atraumatic. Neck- without visible/palpable lumps or pulsations. Palpation- No bony tenderness about head/neck along frontal, occipital, temporal, parietal, mastoid, jawline, zygoma, orbit or any other location. NO temporal artery tenderness. No TMJ tenderness. Neck Supple. Thyroid-No thyromegaly, no nodules ENMT: Pinna- normal without tenderness or erythema. External auditory canal Left- normal without erythema or discharge, no excessive cerumen. External auditory canal Right-normal without erythema or discharge, no excessive cerumen. TM left- Marquez/pearly, normal light reflex and anatomy TM Right- Marquez/pearly, normal light reflex and anatomy Hearing Assessment-normal to conversational speech. Nose and sinus- No sinus tenderness along frontal/maxillary region. External appearance normal and midline. Nares- bilateral quiet airflow, no discharge. Nasal mucosa- No bleeding noted and no ulcerations observed. [place], mo ist. Turbinates non boggy. Lips- normal color, moist without cracks/lesions Oral Cavity/Palate- hard/soft palate intact without lesions, oral mucosa pink and moist. Tongue normal midline. Oropharynx- no pharyngeal erythema, Uvula midline. No post nasal drip. No exudate. Salivary glands- Non tender to palpation CHEST/LUNG: Inspection- symmetric chest wall no pectus deformity. Decreased effort, shallow breathing, no distress, no use of accessory muscles. Palpation- nontender sternum, ribline. No abnormal pulsations. Auscultation- Breath sounds diminished/distant throughout all lung lewis. Normal tracheal sounds, Normal bronchial sounds overlying sternum, Bronchovessicular sounds normal between scapulae posteriorly, Normal vessicular breath sounds heard throughout periphery. Lungs are clear today. Adventitious sounds- scattered wheezes, fine crackling and rare rhonchi. CARDIOVASCULAR: Carotid artery- normal, no bruits or abnormal pulsations. Jugular vein- no pulsations. Palpation/Percussion- Normal PMI, no palpable thrill Auscultation- Distant heart sounds. Normal rate at time of eval. No murmur noted in supine positions. Extremities- no cyanosis, edema, increased warmth. ABDOMEN: Inspection- normal and no visible pulsations. Normal contour. Auscultation- Bowel sounds remain mildly hypoactive, no abdominal bruits. Palpation/Percussion- soft, mild generalized tenderness. No rebound, no guarding, no rovsing, no mcburney, no obturator/psoas, no e/o hepatic locus. Liver 3 fingers below costal margin. Somewhat limited exam due to habitus. no jar tenderness, no masses. Liver-no hepatomegaly, Spleen no splenomegaly, Hernias- none. Rectal not examined. No suprapubic tenderness. (BLADDER SCAN ORDERED) Peripheral Vascular: Upper extremity Left- Normal temperature with pink nailbeds and no ulcerations. Upper extremity Right- Normal temperature with pink nailbeds and no ulcerations. Lower extremity- Cool temperature symmetrical. Hemosiderin changes, chronic stasis dermatitis appearance bilateral LE. FLIP/SCD in place. Musculoskeletal: Generalized-No generalized swelling or edema of extremities, no digital clubbing or cyanosis, neurovascularly intact all four extremities. Weakness in general from deconditioning. hip flexors weak. Normal sensation to light touch. Minimal movement, minimal activity.SCD in place. Chronic venous stasis changes. Neurological: General- Moves all 4 extremities slowly, reduced str and decreased general conditioing. Symmetrical face and body posture. Cranial nerves- individually evaluated II-XII and intact. PERRLA, Normal EOMI, visual/special senses appear intact, Face is symmetrical and normal sensation/movement, normal tongue, normal strength/posture of neck musculature. Reflexes- intact with DTR 2+ patellar, Achilles, bicep, Strength- 5/5 bilateral UE and LE. Soft touch- intact bilateral UE and LE. Temperature sensation- intact bilateral UE and LE. Neuropsych: Oriented- Person, place, time. (AAOx3), Mood/affect- normal and congruent. Able to articulate well. Speech-Normal speech, normal rate, normal tone, normal use of language, volume and coherence. Thought content- normal with ability to perform basic computations Associations- intact, no SI/HI, no hallucinations, delusions, obsessions. Judgment/insight- Appropriate. Memory- Recall intact, remote and recent memory intact. Plan: 1. D/C to [facility] 2. Monitor BP daily 3. Monitor weight daily 4. MOnitor Uout daily 5. Hold lisinopril until 9/28/20. Resume only if >130 SBP 6. Levaquin 500 PO x 5 days 7. Flagyl 500 TID x 5 days 8. Linezolid 600 BID x 7 days 9. Bactroban to buttock/back TID x 7 days. 10. CBC/CMP Friday. 11. See me again next week. 12. Monitor for hypotension, urine output. Monitor for fever and s/sx of dehydration. 13. Shower minimum weekly. 14. Ideally out of bed a few hours per day. 15. ADA diet 16. Activities as tolerated. >30 minutes today on rounding/discharge of patient/arrangement of transfer via ambulance. Call/return to ED if worsening. Hyponatremia is better, hypotension is better, KEILY is better, no further diarrhea, no further emesis, HTN controlled, DM is stable/controlled. Weight is back to baseline. Legs chronically poor, conditioning chronically poor. Overall status isback to about where it was prior to the hospital stay.
[2020-04-14] MEDS: LEVAQUIN 500 MG/100 ML D5W 500 MG/100 ML BAG IV SCH (09:09)
[2020-04-14] MEDS: NORCO 7.5-325 PO SCH ×2 (09:09→15:28)
[2020-04-14] MEDS: ASPIRIN CHEWABLE PO SCH (09:10)
[2020-04-14] MEDS: TRADJENTA PO SCH (09:10)
[2020-04-14] MEDS: ATIVAN PO SCH (09:10)
[2020-04-14] MEDS: FERROUS SULFATE PO SCH (09:10)
[2020-04-14] MEDS: LIPITOR PO SCH (09:10)
[2020-04-14] MEDS: VORTIOXETINE 10 MG PO SCH (09:11)
[2020-04-14] MEDS: NYSTOP POWDER TP SCH (09:11)
[2020-04-14] MEDS: SYMBICORT 160-4.5 MCG INHALER IH SCH (09:12)
[2020-04-14 13:46] VITALS: BP 108/63; TEMP 98.1
== END 2020-04-14 18:05 | DRG 392 ==
LOC: MEDSURG B 11:44 → ED 11:44 → MEDSURG B 16:05 → OBSVTOIN 16:05
PROVIDERS: ADMIT Family Medicine; ATTEND Family Medicine
DX: E66.01 Morbid (severe) obesity due to excess calories; E11.9 Type 2 diabetes mellitus without complications; K21.9 Gastro-esophageal reflux disease without esophagitis; R30.0 Dysuria; L89.329 Pressure ulcer of left buttock, unspecified stage; I50.9 Heart failure, unspecified; M19.90 Unspecified osteoarthritis, unspecified site; I10 Essential (primary) hypertension; R34 Anuria and oliguria; D72.829 Elevated white blood cell count, unspecified; K59.00 Constipation, unspecified; F41.9 Anxiety disorder, unspecified; Z79.899 Other long term (current) drug therapy; R53.81 Other malaise; E86.0 Dehydration; M79.10 Myalgia, unspecified site; I95.9 Hypotension, unspecified; I87.2 Venous insufficiency (chronic) (peripheral); Z79.4 Long term (current) use of insulin; N17.9 Acute kidney failure, unspecified; E78.5 Hyperlipidemia, unspecified; B95.62 Methicillin resistant Staphylococcus aureus infection as the cause of diseases classified elsewhere; E87.1 Hypo-osmolality and hyponatremia; K52.9 Noninfective gastroenteritis and colitis, unspecified; Z51.81 Encounter for therapeutic drug level monitoring; F32.9 Major depressive disorder, single episode, unspecified; L90.9 Atrophic disorder of skin, unspecified